=== PATIENT | male | born 1995 | race Hispanic/Latino ===

== ENCOUNTER 2017-05-11 22:24 | Inpatient (IN) | payer MEDICAID ==
[2017-05-11 22:32] VITALS: BMI 25.0
--- NOTE | 2017-05-11 23:10 | ED PDOC ---
Arrival/HPI <Kale Rosas - Last Filed: 05/12/17 03:22> - General Historian: Patient <Amee Davis - Last Filed: 05/13/17 11:25> - General Chief Complaint: Psychiatric Evaluation Time Seen by Provider: 05/11/17 22:57 - History of Present Illness Narrative History of Present Illness (Text): 05/11/17 23:10 22-year-old male presents today with depression and suicidal ideation. Patient states he has been homeless for the past 2 months after being evicted from his house. Patient states his sister and mother were able to go into women shelters but he has not been able to. Patient states over the past 2 months he's had worsening depression and is now to the point where ever he passes a bridge he contemplates jumping off of it. He denies chest pain or shortness of breath. Denies fevers or chills. Denies dizziness or weakness. No other complaints. ( Amee Dvais) Past Medical History - Provider Review Nursing Documentation Reviewed: Yes - Travel History Have you recently traveled outside [place] w/in the past 3 mons?: No - Tetanus Immunization Tetanus Immunization: Unknown - Cardiac Hx Cardiac Disorders: No - Pulmonary Hx Respiratory Disorders: No - Neurological Hx Neurological Disorder: No - HEENT Hx HEENT Disorder: No - Renal Hx Renal Disorder: No - Endocrine/Metabolic Hx Endocrine Disorders: No - Hematological/Oncological Hx Blood Disorders: No - Integumentary Hx Dermatological Disorder: No - Musculoskeletal/Rheumatological Hx Musculoskeletal Disorders: No - Gastrointestinal Hx Gastrointestinal Disorders: No - Genitourinary/Gynecological Hx Genitourinary Disorders: No - Psychiatric Hx Substance Use: No Other/Comment: ADHD <Amee Davis - Last Filed: 05/13/17 11:25> Family/Social History - Physician Review Nursing Documentation Reviewed: Yes Family/Social History: Unknown Family HX Smoking Status: Never Smoked Hx Alcohol Use: Yes Frequency of alcohol use: Socially Hx Substance Use: No <Amee Davis - Last Filed: 05/13/17 11:25> Allergies/Home Meds <Kale Rosas - Last Filed: 05/12/17 03:22> <Amee Davis - Last Filed: 05/13/17 11:25> Allergies/Adverse Reactions: Allergies No Known Allergies Allergy (Verified 05/12/17 04:52) Home Medications: Home Meds Medication Instructions Recorded Confirmed No Known Home Med 05/11/17 05/11/17 Review of Systems - Review of Systems Constitutional: absent: Fatigue, Fevers Respiratory: absent: SOB, Cough Cardiovascular: absent: Chest Pain, Palpitations, Syncope Gastrointestinal: absent: Abdominal Pain, Nausea, Vomiting Genitourinary Male: absent: Dysuria Musculoskeletal: absent: Arthralgias Skin: absent: Rash, Pruritis Psychiatric: Anxiety, Depression <Amee Davis - Last Filed: 05/13/17 11:25> Physical Exam Vital Signs Reviewed: Yes Temperature: Afebrile Blood Pressure: Normal Pulse: Regular Respiratory Rate: Normal Appearance: Positive for: Well-Appearing, Non-Toxic, Comfortable Pain Distress: None Mental Status: Positive for: Alert and Oriented X 3 - Systems Exam Head: Present: Atraumatic Mouth: Present: Moist Mucous Membranes Neck: Present: Normal Range of Motion Respiratory/Chest: Present: Clear to Auscultation, Good Air Exchange. No: Respiratory Distress, Accessory Muscle Use Cardiovascular: Present: Regular Rate and Rhythm, Normal S1, S2. No: Murmurs Upper Extremity: Present: Normal ROM Lower Extremity: Present: Normal ROM Neurological: Present: GCS=15, Speech Normal Skin: Present: Warm, Dry, Normal Color. No: Rashes Psychiatric: Present: Alert, Oriented x 3, Depressed Mood <Amee Davis - Last Filed: 05/13/17 11:25> Vital Signs Temp Pulse Resp BP Pulse Ox 05/12/17 04:00 87 18 127/75 87 L 05/12/17 01:15 98.5 F 92 H 18 118/84 99 05/11/17 23:36 99.1 F 97 H 18 130/79 97 Medical Decision Making <Kale Rosas - Last Filed: 05/12/17 03:22> <Amee Davis - Last Filed: 05/13/17 11:25> ED Course and Treatment: 05/12/17 02:07: Case endorsed to me by ALDEN Davis. Pending reassessment and discharge. 05/12/17 03:12: Patient will be admitted to Dr. Dahl's service for major depressive disorder. (Kale Rosas) 05/11/17 23:30 Patient is nontoxic well-appearing in no distress vital signs are stable. CBC WNL CMP WNL Tylenol WNL Salicylate WNL Alcohol level WNL Urine drug screen wnl UA; trace ketones cxr: wnl ekg nsr at 97b/m no st elevations, normal axis, normal intervals pt is medically cleared for PES evaluation 05/12/17 00:38 case signed out to dr. rosas; pending pes evaluation, disposition (Amee Davis) - Lab Interpretations Lab Results: 05/11/17 22:40 05/11/17 22:40 Lab Results 05/11/17 22:40: Alcohol, Quantitative < 10 05/11/17 22:40: Salicylates < 1 L, Acetaminophen < 10.0 L 02 22:40: Urine Opiates Screen Negative, Urine Methadone Screen Negative, Ur Barbiturates Screen Negative, Ur Phencyclidine Scrn Negative, Ur Amphetamines Screen Negative, U Benzodiazepines Scrn Negative, U Oth Cocaine Metabols Negative, U Cannabinoids Screen Negative 05/11/17 22:40: Sodium 143, Potassium 3.7, Chloride 102, Carbon Dioxide 25, Anion Gap 19, BUN 13, Creatinine 1.0, Est GFR ( Amer) > 60, Est GFR (Non- Af Amer) > 60, Random Glucose 91, Calcium 10.0, Total Bilirubin 0.6, AST 20, ALT 30, Alkaline Phosphatase 78, Total Protein 8.1, Albumin 4.9 H, Globulin 3.3 , Albumin/Globulin Ratio 1.5 05/11/17 22:40: Urine Color Yellow, Urine Appearance Clear, Urine pH 6.0, Ur Specific [place] 1.025, Urine Protein Negative, Urine Glucose (UA) Negative, Urine Ketones 15 H, Urine Blood Negative, Urine Nitrate Negative, Urine Bilirubin Negative, Urine Urobilinogen 2.0 H, Ur Leukocyte Esterase Negative 05/11/17 22:40: WBC 8.2, RBC 4.93, Hgb 15.1, Hct 43.8, MCV 88.8, MCH 30.6, MCHC 34.5, RDW 13.6, Plt Count 222, MPV 10.2, Gran % 54.6, Lymph % (Auto) 35.3 H, [place] % (Auto) 8.6 H, Eos % (Auto) 1.5, Baso % (Auto) 0.0, Gran # 4.49, Lymph # ( Auto) 2.9, [place] # (Auto) 0.7 H, Eos # (Auto) 0.1, Baso # (Auto) 0.00 - RAD Interpretation Radiology Orders: 05/11/17 22:58 CHEST PORTABLE [RAD] Stat - Medication Orders Current Medication Orders: Acetaminophen (Tylenol 325mg Tab) 650 mg PO Q4 PRN PRN Reason: Pain, moderate (4-7) Al Hydrox/Mg Hydrox/Simethicone (Maalox Plus 30 Ml) 30 ml PO DAILY PRN PRN Reason: Upset Stomach Bupropion HCl (Wellbutrin) 75 mg PO BID ANTHONY Last Admin: 05/13/17 11:04 Dose: 75 mg Diphenhydramine HCl (Benadryl) 50 mg PO HS PRN PRN Reason: Insomnia Last Admin: 05/12/17 21:42 Dose: 50 mg Magnesium Hydroxide (Milk Of Magnesia) 30 ml PO DAILY PRN PRN Reason: Constipation - PA / [employer] / Resident Statement / has reviewed & agrees with the documentation as recorded. / has examined the patient and agrees with the treatment plan. <Kale Rosas - Last Filed: 05/12/17 03:22> Disposition/Present on Arrival - Present on Arrival Any Indicators Present on Arrival: No History of DVT/PE: No History of Uncontrolled Diabetes: No Urinary Catheter: No History of Decub. Ulcer: No History Surgical Site Infection Following: None - Disposition Have Diagnosis and Disposition been Completed?: Yes Disposition Time: 03:21 Patient Plan: Admission <Kale Rosas - Last Filed: 05/12/17 03:22> - Present on Arrival History of DVT/PE: No History of Uncontrolled Diabetes: No Urinary Catheter: No History of Decub. Ulcer: No History Surgical Site Infection Following: None <Amee Davis - Last Filed: 05/13/17 11:25> - Disposition Diagnosis: Major depressive disorder, Suicidal ideation Disposition: HOSPITALIZED Patient Problems: Current Active Problems Problem Status Onset Major depressive disorder Acute Suicidal ideation Acute Condition: STABLE
[2017-05-11 23:14] LABS: ACETAMINOPHEN < 10.0 ug/ml (10.0-20.0); SALICYLATE < 1 mg/dL (2.0-20.0)
[2017-05-11 23:15] LABS: ALB/GLOB RATIO 1.5 (1.1-1.8); ALBUMIN 4.9 g/dL (3.0-4.8); ALT/SGPT 30 U/L (7-56); AST/SGOT 20 U/L (17-59); BLOOD UREA NITROGEN 13 mg/dL (7-21); GFR AFRICAN-AMERICAN > 60; GFR NON-AFRICAN AMERICAN > 60
[2017-05-11 23:22] LABS: EOS # 0.1 (0.0-0.7); EOS % 1.5 % (1.5-5.0); GRAN # 4.49 (1.4-6.5); GRAN % 54.6 % (50.0-68.0); HEMOGLOBIN 15.1 g/dL (14.0-18.0); LYMPH # 2.9 (1.2-3.4); LYMPH % 35.3 % (22.0-35.0); MEAN CELL VOLUME 88.8 fl (80.0-105.0); MEAN CORPUSCULAR HEMOGLOBIN 30.6 pg (25.0-35.0); MEAN CORPUSCULAR HGB CONC 34.5 g/dl (31.0-37.0); MEAN PLATELET VOLUME 10.2 fl (7.0-11.0); MONO # 0.7 (0.1-0.6); MONO % 8.6 % (1.0-6.0); RBC 4.93 10^6/uL (3.5-6.1); RED CELL DISTRIBUTION WIDTH 13.6 % (11.5-14.5); WHITE BLOOD COUNT 8.2 10^3/ul (4.5-11.0)
[2017-05-11 23:25] LABS: BARBITURATES, UR NEGATIVE (NEGATIVE); BENZODIAZEPINES, UR NEGATIVE (NEGATIVE); OPIATES, UR NEGATIVE (NEGATIVE); PHENCYCLIDINE, UR NEGATIVE (NEGATIVE)
[2017-05-11 23:26] LABS: URINE BILIRUBIN NEGATIVE (NEGATIVE); URINE BLOOD NEGATIVE (NEGATIVE); URINE GLUCOSE (UA) NEGATIVE (NEGATIVE); URINE LEUKOCYTE ESTERASE NEGATIVE Leu/uL (NEGATIVE); URINE NITRATE NEGATIVE (NEGATIVE); URINE PROTEIN NEGATIVE mg/dL (<30 mg/dL)
[2017-05-11 23:32] LABS: URINE APPEARANCE CLEAR (CLEAR); URINE COLOR YELLOW (YELLOW)
[2017-05-12 04:02] VITALS: O2SAT 87
[2017-05-12] MEDS ORDERED: Alum-Mag Hydrox-Simethicone Susp (30 mL) PO PRN (04:40)
[2017-05-12] MEDS ORDERED: Magnesium Hydroxide Susp 30 ml UD PO PRN (04:40)
--- NOTE | 2017-05-12 05:48 | PCM.BM ---
<Terrance Mullins - Last Filed: 05/12/17 05:47> Treatment Plan Problems - Problems identified on initial assessmt depression Date Initiated: 05/12/17 Time Initiated: 04:15 Assessment reference: NA Status: Active Priority: 2 suicidal ideation Date Initiated: 05/12/17 Time Initiated: 04:15 Assessment reference: NA Status: Active Priority: 1 Treatment assets and liabiliti Patient Assests: cooperative, self-reliant, ADL independent, negotiates basic needs Patient Liabilities: live alone, financial problems, poor support system - Milieu Protocol Maintain good personal hygiene: daily Encourage regular showers, daily Remind patient to perform daily oral care Conduct patient checks and document Observation sheet: Q15 minutes Maintain personal safety: every shift Educate patient to report safety concerns to staff, every shift Monitor environment for contraband/sharps Medication safety: Monitor for expected outcome, potential side effects: every shift, Assess barriers to learning: every shift, Assess readiness for medication education: every shift Discharge/Continuing Care - Education Needs Education Needs: Patient Medication, Patient Diagnosis/Disease Process, Patient Coping Skills, Patient Placement options, Patient Community resources - Discharge Discharge Criteria: Tolerates medication w/o severe side effects, Free of Suicidal thoughts, Normal sleep pattern <Diana Valladares - Last Filed: 05/12/17 11:21> Family Contact Family involvement: Family/SO is involved Family contact: Patient agrees to contact - Goals for Treatment Patient goals for treatment: "To find a place to live." <Kimberlee Dahl - Last Filed: 05/12/17 13:31> - Diagnosis (1) Major depressive disorder Status: Acute Interventions: 05/12/17 13:32 Psychoeducation Psychopharmacology/adjustment of medications as needed/ monitoring possible side effects Evaluate pt on daily basis Compliance with medications and follow up appointments Suicide and homicide risk assessment and prevention Relapse prevention Reduction of symptoms Improve functional status Family involvement As outpatient: cognitive behavioral therapy <Faith Jefferson - Last Filed: 05/12/17 15:27>
[2017-05-12 07:58] LABS: GLUCOSE,FASTING 88 mg/dL (65-110); HDL CHOLESTEROL 41 mg/dL (29-60)
[2017-05-12 08:09] LABS: LDL CHOLESTEROL 147 mg/dL (0-129)
--- NOTE | 2017-05-12 08:59 | RAD ---
HISTORY: pes eval COMPARISON: No prior. FINDINGS: LUNGS: No active pulmonary disease. PLEURA: No significant pleural effusion identified, no pneumothorax apparent. CARDIOVASCULAR: Normal. OSSEOUS STRUCTURES: No significant abnormalities. VISUALIZED UPPER ABDOMEN: Normal. OTHER FINDINGS: None. IMPRESSION: No active disease.
--- NOTE | 2017-05-12 14:13 | PCM.PSYCH ---
Initial Psychiatric Evaluation - Initial Psychiatric Evaluation Type of Admission: Voluntary Legal Status: Capacity (patient has capacity to sign consent for treatment) Chief Complaint (in patient's own words): "I was thinking to jump off the bridge for the past month or so" Patient's Reaction to Hospitalization: patient was admitted to the psychiatric inpatient unit for evaluation and stabilization of depressive symptoms, suicidal ideation with a plan to jump off the bridge. Patient required further evaluation and stabilization, observation, medication titration. History of Present Illness and Precipitating Events: shortly patient is 22 year old male, with no known previous psychiatric history, patient denied history of suicidal attempts, denied history of being admitted to the psychiatric inpatient unit, came to the hospital looking for help for his depressive symptoms, suicidal ideation with a plan to jump off the bridge, patient has poor social support, homeless, has learning disability, patient required further evaluation and stabilization, observation, medication titration. Patient was seen at the treatment team meeting today, presented to have acceptable personal hygiene, has bleached hair, uncombed, patient obviously patient has learning disabilities, was smiling inappropriately, thought process seems to be concrete, childlike demeanor, patient has good ADLs. pt said for the past year his family become homeless, pt said he was living on streets and was very stressful for him. for the past two months pt was having thoughts of harming self with the plan to jump off the bridge, pt denied any intent or plan to do so, but decided to come to the hospital looking for help. "I just want those thoughts to stop...". 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 pt denied feeling anxious, denied h/o abuse. pt denied substance abuse h/o, pt denied smoking. pt said he was officially diagnosed with learning disabilities and ADD. was attending special ED school and class. Past psych h/o: denied admissions, denied suicidal attempts. Medical h/o: denied, but now "doctor over here said I might have cholesterol level elevated..." Family h/o: strong family h/o mental illness, pt's mother and sister "have schizophrenia" 05/11/17 22:40 05/11/17 22:40 Lab Results 05/12/17 07:15: Fasting Glucose 88, Triglycerides 63, Cholesterol 201 H, LDL Cholesterol Direct 147 H, HDL Cholesterol 41 05/12/17 07:15: TSH 3rd Generation 2.49 05/11/17 22:40: Alcohol, Quantitative < 10 05/11/17 22:40: Salicylates < 1 L, Acetaminophen < 10.0 L 05/11/17 22:40: Urine Opiates Screen Negative, Urine Methadone Screen Negative, Ur Barbiturates Screen Negative, Ur Phencyclidine Scrn Negative, Ur Amphetamines Screen Negative, U Benzodiazepines Scrn Negative, U Oth Cocaine Metabols Negative, U Cannabinoids Screen Negative 05/11/17 22:40: Sodium 143, Potassium 3.7, Chloride 102, Carbon Dioxide 25, Anion Gap 19, BUN 13, Creatinine 1.0, Est GFR ( Amer) > 60, Est GFR (Non- Af Amer) > 60, Random Glucose 91, Calcium 10.0, Total Bilirubin 0.6, AST 20, ALT 30, Alkaline Phosphatase 78, Total Protein 8.1, Albumin 4.9 H, Globulin 3.3 , Albumin/Globulin Ratio 1.5 05/11/17 22:40: Urine Color Yellow, Urine Appearance Clear, Urine pH 6.0, Ur Specific [place] 1.025, Urine Protein Negative, Urine Glucose (UA) Negative, Urine Ketones 15 H, Urine Blood Negative, Urine Nitrate Negative, Urine Bilirubin Negative, Urine Urobilinogen 2.0 H, Ur Leukocyte Esterase Negative 05/11/17 22:40: WBC 8.2, RBC 4.93, Hgb 15.1, Hct 43.8, MCV 88.8, MCH 30.6, MCHC 34.5, RDW 13.6, Plt Count 222, MPV 10.2, Gran % 54.6, Lymph % (Auto) 35.3 H, [place] % (Auto) 8.6 H, Eos % (Auto) 1.5, Baso % (Auto) 0.0, Gran # 4.49, Lymph # ( Auto) 2.9, [place] # (Auto) 0.7 H, Eos # (Auto) 0.1, Baso # (Auto) 0.00 Vital Signs Temp Pulse Resp BP Pulse Ox 05/12/17 07:37 98.0 F 89 20 106/67 05/12/17 04:51 97.6 F 93 H 20 124/73 05/12/17 04:00 87 18 127/75 87 L 05/12/17 01:15 98.5 F 92 H 18 118/84 99 05/11/17 23:36 99.1 F 97 H 18 130/79 97 Current Medications: Active Medications Generic Name Dose Route Start Last Admin Trade Name Freq PRN Reason Stop Dose Admin Acetaminophen 650 mg 05/12/17 04:40 Tylenol 325mg Tab PO Q4 PRN Pain, moderate (4-7) Al Hydrox/Mg Hydrox/Simethicone 30 ml 05/12/17 04:40 Maalox Plus 30 Ml PO DAILY PRN Upset Stomach Bupropion HCl 75 mg 05/12/17 09:30 Wellbutrin PO BID ANTHONY Diphenhydramine HCl 50 mg 05/12/17 09:29 Benadryl PO HS PRN Insomnia Magnesium Hydroxide 30 ml 05/12/17 04:40 Milk Of Magnesia PO DAILY PRN Constipation Past Psychiatric History - Past Psychiatric History Previous Treatment History: None Prior Professional Help: see HPI Prior Psychiatric Treatment: see HPI At what hospital: see HPi Duration: see HPI Nature of Treatment: see HPI Explanation of prior treatment: see HPI History of Abuse: see HPI History of ETOH/Drug Use: see HPI History of Family Illness: see HPI Pertinent Medical Hx (Current Medical&Sleep Prob, Allergies): Allergies Allergy/AdvReac Type Severity Reaction Status Date / Time No Known Allergies Allergy Verified 05/12/17 04:52 No Known Home Med 05/11/17 none Review of Systems - Review of Systems Systems not reviewed;Unavailable: Acuity of Condition - EENT Eyes: As Per HPI Ears: As Per HPI Nose/Mouth/Throat: As Per HPI - Cardiovascular Cardiovascular: As Per HPI - Respiratory Respiratory: As Per HPI - Gastrointestinal Gastrointestinal: As Per HPI - Genitourinary Genitourinary: As Per HPI - Reproductive: Male Reproductive:Male: As Per HPI - Musculoskeletal Musculoskeletal: As Par HPI - Integumentary Integumentary: As Per HPI - Neurological Neurological: As Per HPI - Psychiatric Psychiatric: As Per HPI - Endocrine Endocrine: As Per HPI - Hematologic/Lymphatic Hematologic: As Per HPI Mental Status Examination - Personal Presentation Personal Presentation: Looks stated age - Affect Affect: Other (at times innnapropriate, smiling when was talking about sucicidal ideation) - Motor Activity Motor Activity: Calm - Reliability in Providing Information Reliability in Providing Information: Fair - Speech Speech: Organized - Mood Mood: Depressed ("I was not doing so well") - Formal Thought Process Formal Thought Process: No Impairment - Obsessions/Compulsions Obsessions: None Compulsions: None - Cognitive Functions Orientation: Person, Place Sensorium: Alert Attention/Concentration: Easily distracted Abstract Thinking: [place] Estimate of Intelligence: Below average Judgement: Intact, as evidence by: Insight regarding need for hospitalization - Risk Risk: Suicidal, Diminished functioning - Strength & Assets Inventory Strength & Assets Inventory: Cooperative, Other (good physical health, no h/o substances, no h/o violence) - Limitations Limitations: Other (homelessness) DSM 5 DX - DSM 5 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 self reported h/o ADD - Recommended/Plan of Treatment Treatment Recommendations and Plan of Treatment: Milieu/structure/supportive therapy Medical consult appreciated, see medical team note for more detailed info SW consultation for discharge plan and social issues Med management wellbutrin 75mg po bid for mdd and add benadryl 50mg po hs for insomnia medical evaluation Family involvement Follow up on labs Will monitor closely Pt was educated about risk/benefits and alternatives of medications, coping strategies (safety plan, suicide prevention), relapse prevention, importance of follow up with psychiatrist and therapist, stay away from drugs/alcohol/smoking Projected ELOS: 7days Prognosis: fair Discharge Plan and Discharge Criteria: Pt will be not depressed or manic, will be more hopeful, will be not psychotic or anxious, will be not having thoughts of harming self or others, will be tolerating medications well, will not have major side effects, will be able to function, will not pose threat to self or others. - Smoking Cessation Smoking Cessation Initiated: No Reason for not providing: pt denied smoking
--- NOTE | 2017-05-12 16:21 | CP.PCM.CON ---
<Connor Aelgria - Last Filed: 05/12/17 18:16> History of Present Illness - History of Present Illness History of Present Illness: Patient is a 22 year old male with past medical history significant for ADHD, depression who presents to [facility] [place] with complaints of depression and suicidal ideation with plan to jump off a bridge. Patient states he currently still feels this way but is optimistic. Denies abdominal pain, headache, shortness of breath, dizziness, cough, nausea, vomiting, diarrhea. PMD: Dr. Moura Surgical history: denies Allergies: seasonal Medications: denies current Family history: Bipolar disorder, schizophrenia Review of Systems - Constitutional Constitutional: absent: Chills, Fever - EENT Eyes: absent: Blurred Vision, Change in Vision Ears: absent: Ear Discharge, Ear Pain Nose/Mouth/Throat: absent: Nasal Congestion, Nasal Discharge - Cardiovascular Cardiovascular: absent: Chest Pain, Dyspnea - Respiratory Respiratory: absent: Cough, Dyspnea - Gastrointestinal Gastrointestinal: absent: Abdominal Pain, Diarrhea, Nausea, Vomiting - Genitourinary Genitourinary: absent: Difficulty Urinating, Dysuria - Neurological Neurological: absent: Dizziness, Numbness - Psychiatric Psychiatric: absent: Confusion, Depression - Endocrine Endocrine: absent: Change in Body Appearance, Fatigue - Hematologic/Lymphatic Hematologic: absent: Easy Bleeding, Easy Bruising Past Patient History - Tetanus Immunizations Tetanus Immunization: Unknown - Past Social History Smoking Status: Never Smoked - CARDIAC Hx Cardiac Disorders: No Hx Hypertension: No - PULMONARY Hx Tuberculosis: No - NEUROLOGICAL HX Cerebrovascular Accident: No Hx Seizures: No - HEENT Hx HEENT Problems: No - RENAL Hx Chronic Kidney Disease: No - ENDOCRINE/METABOLIC Hx Endocrine Disorders: No - HEMATOLOGICAL/ONCOLOGICAL Hx Cancer: No Hx Human Immunodeficiency Virus (HIV): No - INTEGUMENTARY Hx Dermatological Problems: No - MUSCULOSKELETAL/RHEUMATOLOGICAL Hx Musculoskeletal Disorders: No - GASTROINTESTINAL Hx Gastrointestinal Disorders: No - GENITOURINARY/GYNECOLOGICAL Hx Sexually Transmitted Disorders: No - PSYCHIATRIC Hx Substance Use: No - SURGICAL HISTORY Hx Surgeries: No Meds Allergies/Adverse Reactions: Allergies Allergy/AdvReac Type Severity Reaction Status Date / Time No Known Allergies Allergy Verified 05/12/17 04:52 - Medications Medications: Current Medications Acetaminophen (Tylenol 325mg Tab) 650 mg PO Q4 PRN PRN Reason: Pain, moderate (4-7) Al Hydrox/Mg Hydrox/Simethicone (Maalox Plus 30 Ml) 30 ml PO DAILY PRN PRN Reason: Upset Stomach Bupropion HCl (Wellbutrin) 75 mg PO BID ANTHONY Last Admin: 05/12/17 14:39 Dose: 75 mg Diphenhydramine HCl (Benadryl) 50 mg PO HS PRN PRN Reason: Insomnia Magnesium Hydroxide (Milk Of Magnesia) 30 ml PO DAILY PRN PRN Reason: Constipation Physical Exam - Head Exam Head Exam: ATRAUMATIC, NORMAL INSPECTION, NORMOCEPHALIC - Eye Exam Eye Exam: EOMI, Normal appearance - ENT Exam ENT Exam: Mucous Membranes Moist, Normal Exam - Neck Exam Neck exam: Positive for: Normal Inspection - Respiratory Exam Respiratory Exam: Clear to Auscultation Bilateral, NORMAL BREATHING PATTERN. absent: Rhonchi, Wheezes - Cardiovascular Exam Cardiovascular Exam: REGULAR RHYTHM, +S1, +S2 - GI/Abdominal Exam GI & Abdominal Exam: Normal Bowel Sounds, Soft - Rectal Exam Rectal Exam: NORMAL INSPECTION - Neurological Exam Neurological exam: Alert, CN II-XII Intact, Oriented x3 - Psychiatric Exam Psychiatric exam: Normal Affect, Normal Mood - Skin Skin Exam: Intact, Normal Color, Warm Results - Vital Signs Recent Vital Signs: Last Vital Signs Temp 98.0 F 05/12/17 07:37 Pulse 89 05/12/17 07:37 Resp 20 05/12/17 07:37 BP 106/67 05/12/17 07:37 Pulse Ox 87 L 05/12/17 04:00 - Labs Result Diagrams: 05/11/17 22:40 05/11/17 22:40 Labs: Laboratory Results - last 24 hr 05/12/17 05/12/17 07:15 07:15 Fasting Glucose 88 Triglycerides 63 Cholesterol 201 H LDL Cholesterol Direct 147 H HDL Cholesterol 41 TSH 3rd Generation 2.49 Assessment & Plan - Assessment and Plan (Free Text) Assessment: 22 year old male admitted for depression with suicidal ideation Plan: Medical clearance - patient is cleared from a medical standpoint. - lab abnormalities include high cholesterol. Patient was counseled on diet and following up with his PMD after 6 months to decide whether high cholesterol may be controlled with diet or if medication is necessary. - patient was advised to follow up with his PMD regarding admission after discharge within 1 week. <Angel Ryder - Last Filed: 05/12/17 18:40> Meds - Medications Medications: Current Medications Acetaminophen (Tylenol 325mg Tab) 650 mg PO Q4 PRN PRN Reason: Pain, moderate (4-7) Al Hydrox/Mg Hydrox/Simethicone (Maalox Plus 30 Ml) 30 ml PO DAILY PRN PRN Reason: Upset Stomach Bupropion HCl (Wellbutrin) 75 mg PO BID ANTHONY Last Admin: 05/12/17 17:25 Dose: 75 mg Diphenhydramine HCl (Benadryl) 50 mg PO HS PRN PRN Reason: Insomnia Magnesium Hydroxide (Milk Of Magnesia) 30 ml PO DAILY PRN PRN Reason: Constipation Results - Vital Signs Recent Vital Signs: Last Vital Signs Temp 98.0 F 05/12/17 07:37 Pulse 100 H 05/12/17 15:00 Resp 20 05/12/17 07:37 BP 134/71 05/12/17 15:00 Pulse Ox 87 L 05/12/17 04:00 - Labs Result Diagrams: 05/11/17 22:40 05/11/17 22:40 Labs: Laboratory Results - last 24 hr 05/12/17 05/12/17 05/12/17 07:15 07:15 07:15 Fasting Glucose 88 Triglycerides 63 Cholesterol 201 H LDL Cholesterol Direct 147 H HDL Cholesterol 41 TSH 3rd Generation 2.49 RPR Nonreactive Attending/Attestation - Attestation I have personally seen and examined this patient.: Yes I have fully participated in the care of the patient.: Yes I have reviewed all pertinent clinical information: Yes Notes (Text): 05/12/17 18:39 Attending note; Patient seen and examined with resident in psychiatric floor. Patient is alert, awake and oriented. Denies any complaints. Labs reviewed. Hypercholesterolemia; dietary control for 3-6 months. Needs repeat cholesterol level as outpatient. Continue psychiatric treatment. Patient is medically stable. Please reconsult as needed. Thank you for the courtesy of this consultation. 05/12/17 18:40
--- NOTE | 2017-05-12 22:38 | CARD ---
APPROVED REPORT EKG Measurement Heart [id number] <Conclusion> Normal sinus rhythm Normal ECG
--- NOTE | 2017-05-13 09:33 | PCM.PYCHPN ---
Psychiatric Progress Note - Psychiatric Progress Note Patient seen today, length of contact: 25 MIN Patient Chief Complaint: "great" Problems Identified/Issues Discussed: I reviewed assessment and recent notes. Patient was interviewed at bedside. He is cooperative with questioning and oriented x3. Grooming is fair. Patient reports that he is great. Affect is appropriately reactive. He denies hallucinations or any new concerns. He slept well last night. Staff notes indicate patient has been visible, social and attending groups. He is compliant with medications. There were no behavioral issues overnight. 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 self reported h/o ADD Mental Status Examination - Cognitive Function Orientation: Person, Place Attention: WNL - Mood Mood: Depressed ("great") - Affect Affect: Other ( labile, odd) - Speech Speech: Appropriate - Formal Thought Process Formal Thought Process: No Impairment - Suicidal Ideation Suicidal Ideation: No - Homicidal Ideation Homicidal Ideation: No Goal/Treatment Plan - Goal/Treatment Plan Progress Toward Problem(s) and Goals/Treatment Plan: c/w current tx and plan No new weekend labs thus far Vitals reviewed and noted below: Selected Entries 05/13/17 08:24 Temperature 97.5 F L Pulse Rate 74 Respiratory 18 Rate Blood Pressure 130/77
--- NOTE | 2017-05-14 09:24 | PCM.PYCHPN ---
Psychiatric Progress Note - Psychiatric Progress Note Patient seen today, length of contact: 25 MIN Patient Chief Complaint: "all right, can't complain" Problems Identified/Issues Discussed: I reviewed recent notes and patient was interviewed at bedside. He is cooperative with questioning and oriented x3. Grooming is fair. Patient reports that he is "all right, can't complain". Affect is appropriately reactive. He denies hallucinations or any new concerns. He slept well again last night. Staff notes indicate patient has been visible, social and attending groups. He is compliant with medications. There were no behavioral issues over the weekend. 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 self reported h/o ADD Mental Status Examination - Cognitive Function Orientation: Person, Place Attention: WNL Concentration: WNL - Mood Mood: Depressed ( "all right, can't complain") - Affect Affect: Other ( labile, less odd) - Speech Speech: Appropriate - Formal Thought Process Formal Thought Process: No Impairment - Suicidal Ideation Suicidal Ideation: No - Homicidal Ideation Homicidal Ideation: No Goal/Treatment Plan - Goal/Treatment Plan Progress Toward Problem(s) and Goals/Treatment Plan: c/w current tx and plan No new weekend labs Vitals reviewed and noted below: 05/14/17 07:42 Temperature 97.1 F L Pulse Rate 73 Respiratory 20 Rate Blood Pressure 120/79
--- NOTE | 2017-05-15 17:23 | PCM.PYCHPN ---
Psychiatric Progress Note - Psychiatric Progress Note Patient seen today, length of contact: 30min Patient Chief Complaint: "I am doing little better" Problems Identified/Issues Discussed: Suicide/ homicide prevention, past psychiatric h/o, current psychiatric symptoms , medical problems, risk/benefits and alternatives of medications, medications compliance, coping strategies, substance abuse h/o, relapse prevention, importance of follow up with psychiatrist and therapist, discharge plan. Medical Problems: elevated cholesterol level Diagnostic Results: 05/11/17 22:40 05/11/17 22:40 Lab Results 05/12/17 07:15: Fasting Glucose 88, Triglycerides 63, Cholesterol 201 H, LDL Cholesterol Direct 147 H, HDL Cholesterol 41 05/12/17 07:15: RPR Nonreactive 05/12/17 07:15: TSH 3rd Generation 2.49 05/11/17 22:40: Alcohol, Quantitative < 10 05/11/17 22:40: Salicylates < 1 L, Acetaminophen < 10.0 L 05/11/17 22:40: Urine Opiates Screen Negative, Urine Methadone Screen Negative, Ur Barbiturates Screen Negative, Ur Phencyclidine Scrn Negative, Ur Amphetamines Screen Negative, U Benzodiazepines Scrn Negative, U Oth Cocaine Metabols Negative, U Cannabinoids Screen Negative 05/11/17 22:40: Sodium 143, Potassium 3.7, Chloride 102, Carbon Dioxide 25, Anion Gap 19, BUN 13, Creatinine 1.0, Est GFR ( Amer) > 60, Est GFR (Non- Af Amer) > 60, Random Glucose 91, Calcium 10.0, Total Bilirubin 0.6, AST 20, ALT 30, Alkaline Phosphatase 78, Total Protein 8.1, Albumin 4.9 H, Globulin 3.3 , Albumin/Globulin Ratio 1.5 05/11/17 22:40: Urine Color Yellow, Urine Appearance Clear, Urine pH 6.0, Ur Specific [place] 1.025, Urine Protein Negative, Urine Glucose (UA) Negative, Urine Ketones 15 H, Urine Blood Negative, Urine Nitrate Negative, Urine Bilirubin Negative, Urine Urobilinogen 2.0 H, Ur Leukocyte Esterase Negative 05/11/17 22:40: WBC 8.2, RBC 4.93, Hgb 15.1, Hct 43.8, MCV 88.8, MCH 30.6, MCHC 34.5, RDW 13.6, Plt Count 222, MPV 10.2, Gran % 54.6, Lymph % (Auto) 35.3 H, Mineral % (Auto) 8.6 H, Eos % (Auto) 1.5, Baso % (Auto) 0.0, Gran # 4.49, Lymph # ( Auto) 2.9, Mineral # (Auto) 0.7 H, Eos # (Auto) 0.1, Baso # (Auto) 0.00 Vital Signs Temp Pulse Resp BP Pulse Ox 05/15/17 16:00 86 118/87 05/15/17 07:26 97.7 F 72 20 119/76 05/15/17 07:24 97.7 F 72 20 05/14/17 21:59 73 118/78 05/14/17 07:42 97.1 F L 73 20 120/79 05/13/17 15:00 67 106/63 05/13/17 08:24 97.5 F L 74 18 130/77 05/12/17 15:00 100 H 134/71 05/12/17 07:37 98.0 F 89 20 106/67 05/12/17 04:51 97.6 F 93 H 20 124/73 05/12/17 04:00 87 18 127/75 87 L 05/12/17 01:15 98.5 F 92 H 18 118/84 99 05/11/17 23:36 99.1 F 97 H 18 130/79 97 DSM 5 Symptoms Update: shortly patient is 22 year old male, with no known previous psychiatric history, patient denied history of suicidal attempts, denied history of being admitted to the psychiatric inpatient unit, came to the hospital looking for help for his depressive symptoms, suicidal ideation with a plan to jump off the bridge, patient has poor social support, homeless, has learning disability, patient required further evaluation and stabilization, observation, medication titration. Patient was seen at the treatment team meeting room today, better groomed. pt said he feels better because he feels meds started to work. pt reported to have a good appetite and sleep. pt was interviewed by for boarding home placement, but pt said "it is too far". pt has another interview tomorrow. as per staff pt has strong borderline personality traits. pt tolerated meds well, no side effects observed or reported, AIMS 0, no EPS. 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 self reported h/o ADD Medication Change: No Medical Record Reviewed: Yes Consults ordered or reviewed: medical consult appreciated Mental Status Examination - Cognitive Function Orientation: Person, Place Attention: WNL Concentration: WNL Association: Loose Fund of Knowledge: Poor (baseline) - Mood Mood: Depressed ( "all right, can't complain") - Affect Affect: Other ( labile, less odd) - Speech Speech: Appropriate - Formal Thought Process Formal Thought Process: No Impairment - Suicidal Ideation Suicidal Ideation: No - Homicidal Ideation Homicidal Ideation: No Goal/Treatment Plan - Goal/Treatment Plan Need for Continued Stay: Remain at risks for inpatient hospitalization, Severe depression anxiety, Discharge may exacerbated symptoms, Severe functional impairment Progress Toward Problem(s) and Goals/Treatment Plan: Milieu/structure/supportive therapy Medical consult appreciated, see medical team note for more detailed info SW consultation for discharge plan and social issues Med management wellbutrin 75mg po bid for mdd and add sonata 5mg po hs for insomnia pt submitted 48hr notice, requesting d/c medical evaluation Family involvement Follow up on labs Will monitor closely Pt was educated about risk/benefits and alternatives of medications, coping strategies (safety plan, suicide prevention), relapse prevention, importance of follow up with psychiatrist and therapist, stay away from drugs/alcohol/smoking Estimated Date of D/C: 05/16/17
[2017-05-16 06:41] VITALS: BP 150/80; PULSE 87; RESP 16; TEMP 98.4
--- NOTE | 2017-05-16 16:27 | PCM.PYCHDC ---
Mental Status Examination - Mental Status Examination Orientation: Person, Place, Situation, Time Memory: Impaired (baseline) Mood: Neutral Affect: Broad (and mood congruent) Speech: Appropriate (there some poverty of speech) Attention: Poor (some improvement, poor at baseline, learning disabilities) Concentration: Poor (some improvement, poor at baseline, learning disabilities) Association: WNL Fund of Knowledge: Poor (poor at baseline, learning disabilities) Formal Thought Process: No Impairment Description of patient's judgement and insight: Pt has improved insight into mental and medical illness, pt was compliant with medications and unit rules and regulations, pt was going to groups, was calm, cooperative, socially appropriate, no behavioral incidents, no agitation, no aggression. Psychotic Thoughts and Behaviors: Pt denied v/a/t hallucinations, denied paranoid ideations, pt does not appear to be psychotic, and thought process is goal directed. Suicidal Ideation: No Current Homicidal Ideation?: No Plan: pt adamantly denied thoughts of harming self or others denied intent or plan. Discharge Summary - Discharge Note Reason for Hospitalization: patient was admitted to the psychiatric inpatient unit for evaluation and stabilization of depressive symptoms, suicidal ideation with a plan to jump off the bridge, no intent. Patient required further evaluation and stabilization, observation, medication titration. Psychiatric History (includes Medical, Family, Personal Hx): see HPI Laboratory Data: 05/11/17 22:40 05/11/17 22:40 Lab Results 05/12/17 07:15: Fasting Glucose 88, Triglycerides 63, Cholesterol 201 H, LDL Cholesterol Direct 147 H, HDL Cholesterol 41 05/12/17 07:15: RPR Nonreactive 05/12/17 07:15: TSH 3rd Generation 2.49 05/11/17 22:40: Alcohol, Quantitative < 10 05/11/17 22:40: Salicylates < 1 L, Acetaminophen < 10.0 L 05/11/17 22:40: Urine Opiates Screen Negative, Urine Methadone Screen Negative, Ur Barbiturates Screen Negative, Ur Phencyclidine Scrn Negative, Ur Amphetamines Screen Negative, U Benzodiazepines Scrn Negative, U Oth Cocaine Metabols Negative, U Cannabinoids Screen Negative 05/11/17 22:40: Sodium 143, Potassium 3.7, Chloride 102, Carbon Dioxide 25, Anion Gap 19, BUN 13, Creatinine 1.0, Est GFR ( Amer) > 60, Est GFR (Non- Af Amer) > 60, Random Glucose 91, Calcium 10.0, Total Bilirubin 0.6, AST 20, ALT 30, Alkaline Phosphatase 78, Total Protein 8.1, Albumin 4.9 H, Globulin 3.3 , Albumin/Globulin Ratio 1.5 05/11/17 22:40: Urine Color Yellow, Urine Appearance Clear, Urine pH 6.0, Ur Specific [place] 1.025, Urine Protein Negative, Urine Glucose (UA) Negative, Urine Ketones 15 H, Urine Blood Negative, Urine Nitrate Negative, Urine Bilirubin Negative, Urine Urobilinogen 2.0 H, Ur Leukocyte Esterase Negative 05/11/17 22:40: WBC 8.2, RBC 4.93, Hgb 15.1, Hct 43.8, MCV 88.8, MCH 30.6, MCHC 34.5, RDW 13.6, Plt Count 222, MPV 10.2, Gran % 54.6, Lymph % (Auto) 35.3 H, [place] % (Auto) 8.6 H, Eos % (Auto) 1.5, Baso % (Auto) 0.0, Gran # 4.49, Lymph # ( Auto) 2.9, [place] # (Auto) 0.7 H, Eos # (Auto) 0.1, Baso # (Auto) 0.00 Vital Signs Temp Pulse Resp BP Pulse Ox 05/16/17 06:40 98.4 F 87 16 150/80 05/15/17 16:00 86 118/87 05/15/17 07:26 97.7 F 72 20 119/76 05/15/17 07:24 97.7 F 72 20 05/14/17 21:59 73 118/78 05/14/17 07:42 97.1 F L 73 20 120/79 05/13/17 15:00 67 106/63 05/13/17 08:24 97.5 F L 74 18 130/77 05/12/17 15:00 100 H 134/71 05/12/17 07:37 98.0 F 89 20 106/67 05/12/17 04:51 97.6 F 93 H 20 124/73 05/12/17 04:00 87 18 127/75 87 L 05/12/17 01:15 98.5 F 92 H 18 118/84 99 05/11/17 23:36 99.1 F 97 H 18 130/79 97 Consultations:: List each consultation separately and include: 1. Reason for request. 2. Findings. 3. Follow-up Consultations: medical consult appreciated see notes for more detailed information Summary of Hospital Course include:: 1. Description of specific treatment plan utilized for patients during their course of treatmen. 2. Summarize the time- course for resolution of acute symptoms and/or regressed behaviors. 3. Describe issues identified and worked on during hospitalization. 4. Describe medication utilized. 5. Describe medical problems identified and treated. 6. Reassessment of suicide risk Summary of Hospital Course: shortly patient is 22 year old male, with no known previous psychiatric history, patient denied history of suicidal attempts, denied history of being admitted to the psychiatric inpatient unit, came to the hospital looking for help for his depressive symptoms, suicidal ideation with a plan to jump off the bridge, patient has poor social support, homeless, has learning disability, patient required further evaluation and stabilization, observation, medication titration. at the time of admission presented to have acceptable personal hygiene, has bleached hair, uncombed, patient obviously patient has learning disabilities, was smiling inappropriately, thought process seems to be concrete, childlike demeanor, patient has good ADLs. pt said for the past year his family become homeless, pt said he was living on streets and was very stressful for him. for the past two months pt was having thoughts of harming self with the plan to jump off the bridge, pt denied any intent or plan to do so, but decided to come to the hospital looking for help. "I just want those thoughts to stop...". pt denied feeling of hopelessness or helplessness, but this chart writer is doubtful about pt understanding the meaning of these words. pt denied feeling anxious, denied h/o abuse. pt denied substance abuse h/o, pt denied smoking. pt said he was officially diagnosed with learning disabilities and ADD. was attending special ED school and class. Past psych h/o: denied admissions, denied suicidal attempts. Medical h/o: denied, but now "doctor over here said I might have cholesterol level elevated..." Family h/o: strong family h/o mental illness, pt's mother and sister "have schizophrenia" 05/11/17 22:40 05/11/17 22:40 Lab Results 05/12/17 07:15: Fasting Glucose 88, Triglycerides 63, Cholesterol 201 H, LDL Cholesterol Direct 147 H, HDL Cholesterol 41 05/12/17 07:15: TSH 3rd Generation 2.49 05/11/17 22:40: Alcohol, Quantitative < 10 05/11/17 22:40: Salicylates < 1 L, Acetaminophen < 10.0 L 05/11/17 22:40: Urine Opiates Screen Negative, Urine Methadone Screen Negative, Ur Barbiturates Screen Negative, Ur Phencyclidine Scrn Negative, Ur Amphetamines Screen Negative, U Benzodiazepines Scrn Negative, U Oth Cocaine Metabols Negative, U Cannabinoids Screen Negative 05/11/17 22:40: Sodium 143, Potassium 3.7, Chloride 102, Carbon Dioxide 25, Anion Gap 19, BUN 13, Creatinine 1.0, Est GFR ( Amer) > 60, Est GFR (Non- Af Amer) > 60, Random Glucose 91, Calcium 10.0, Total Bilirubin 0.6, AST 20, ALT 30, Alkaline Phosphatase 78, Total Protein 8.1, Albumin 4.9 H, Globulin 3.3 , Albumin/Globulin Ratio 1.5 05/11/17 22:40: Urine Color Yellow, Urine Appearance Clear, Urine pH 6.0, Ur Specific [place] 1.025, Urine Protein Negative, Urine Glucose (UA) Negative, Urine Ketones 15 H, Urine Blood Negative, Urine Nitrate Negative, Urine Bilirubin Negative, Urine Urobilinogen 2.0 H, Ur Leukocyte Esterase Negative 05/11/17 22:40: WBC 8.2, RBC 4.93, Hgb 15.1, Hct 43.8, MCV 88.8, MCH 30.6, MCHC 34.5, RDW 13.6, Plt Count 222, MPV 10.2, Gran % 54.6, Lymph % (Auto) 35.3 H, [place] % (Auto) 8.6 H, Eos % (Auto) 1.5, Baso % (Auto) 0.0, Gran # 4.49, Lymph # ( Auto) 2.9, [place] # (Auto) 0.7 H, Eos # (Auto) 0.1, Baso # (Auto) 0.00 Vital Signs Temp Pulse Resp BP Pulse Ox 05/12/17 07:37 98.0 F 89 20 106/67 05/12/17 04:51 97.6 F 93 H 20 124/73 05/12/17 04:00 87 18 127/75 87 L 05/12/17 01:15 98.5 F 92 H 18 118/84 99 05/11/17 23:36 99.1 F 97 H 18 130/79 97 over the course of this hospitalization pt was stabilized on the following medications: wellbutrin 75mg po bid for mdd and add sonata 5mg po hs for insomnia, but pt was able to sleep with no sonata benadryl prn for insomnia pt tolerated meds well, no side effects observed or reported, AIMS 0, no EPS. pt submitted 48hr notice, requesting d/c, pt does not meet a criteria for screening. pt is not danger to self or others. will be d/c today because pt did not want to have an interview with boarding home, pt said his friend will accept him. Over the course of this hospitalization pt was attending groups, pt also had medication management, had therapeutic milieu. Overall pt improved significantly, pt's affect became brighter, pt was less depressed, has realistic future oriented plans, pt also does not appear to be psychotic, or anxious, pt was socially appropriate, no behavioral issues, pts insight improved as well and soon pt deemed to be ready for discharge. At the time of the discharge pt denied been depressed, denied thoughts of harming self or others, denied psychotic symptoms, and pt does not appeared to be psychotic, denied been anxious, pt is not in imminent danger to self or others, will be following up at IOP program, information about follow up appointment, time and address provided to the pt, it is patient responsibility to follow up with outpatient clinic, PMD as well as specialists (see SW note for more detailed information). In case pt will need to obtain results of studies pending at discharge pt was provided with contact information of Psychiatric Inpatient unit [phone] as well as Medical Record Department [phone]. pt is not using drugs, not smoking pt was provided with prescriptions for all of medications (please see medication reconciliation form) Pt was educated about safety plan in case of worsening of symptoms or in case of suicidal or homicidal ideation call 911 or go to the nearest ER, also was educated to take meds as prescribed and stay away from drugs, pt verbalized understanding. - Diagnosis (1) Major depressive disorder Status: Acute Priority: Medium - Final Diagnosis (DSM 5) Condition upon Discharge: STABLE Disposition: HOME/ ROUTINE Follow-up Treatment Plan: At the time of the discharge pt denied been depressed, denied thoughts of harming self or others, denied psychotic symptoms, and pt does not appeared to be psychotic, denied been anxious, pt is not in imminent danger to self or others, will be following up at [facility] program, information about follow up appointment, time and address provided to the pt, it is patient responsibility to follow up with outpatient clinic, PMD as well as specialists (see SW note for more detailed information). In case pt will need to obtain results of studies pending at discharge pt was provided with contact information of Psychiatric Inpatient unit [phone] as well as Medical Record Department [phone]. pt is not using drugs, not smoking pt was provided with prescriptions for all of medications (please see medication reconciliation form) Pt was educated about safety plan in case of worsening of symptoms or in case of suicidal or homicidal ideation call 911 or go to the nearest ER, also was educated to take meds as prescribed and stay away from drugs, pt verbalized understanding. Prescriptions/Medication Reconciliation: buPROPion XL [Wellbutrin] 150 mg PO DAILY #14 t24 DiphenhydrAMINE [Benadryl] 50 mg PO HS PRN #14 cap PRN Reason: Insomnia - Smoking Cessation Smoking Cessation Medication prescribed: No Reason for not providing: pt does not smoke - Antipsychotic Medications Pt discharged on 2 or more routine antipsychotic medications: No
== END 2017-05-16 14:47 | disposition home or self-care (01) | DRG 426 ==
LOC: ED 22:24 → ERH 05-12 03:18 → PSYC 05-12 04:12
PROVIDERS: ADMIT Psychiatry & Neurology Psychiatry; ATTEND Psychiatry & Neurology Psychiatry
DX: F32.9 Major depressive disorder, single episode, unspecified (principal); R45.851 Suicidal ideations; E78.00 Pure hypercholesterolemia, unspecified; Z59.0 Homelessness

== ENCOUNTER 2017-06-18 21:17 | Emergency (ER) | payer MEDICAID ==
--- NOTE | 2017-06-18 21:21 | ED PDOC ---
Arrival/HPI - General Time Seen by Provider: 06/18/17 21:20 Historian: Patient - History of Present Illness Narrative History of Present Illness (Text): 06/18/17 21:21 22 y/o male, no significant pmh, psychiatric history including depression, biba c/o Past Medical History - Tetanus Immunization Tetanus Immunization: Unknown - Cardiac Hx Cardiac Disorders: No - Pulmonary Hx Respiratory Disorders: No - Neurological Hx Neurological Disorder: No - HEENT Hx HEENT Disorder: No - Renal Hx Renal Disorder: No - Endocrine/Metabolic Hx Endocrine Disorders: No - Hematological/Oncological Hx Blood Disorders: No - Integumentary Hx Dermatological Disorder: No - Musculoskeletal/Rheumatological Hx Musculoskeletal Disorders: No - Gastrointestinal Hx Gastrointestinal Disorders: No - Genitourinary/Gynecological Hx Genitourinary Disorders: No - Psychiatric Hx Substance Use: No Other/Comment: ADHD Family/Social History Smoking Status: Never Smoked Hx Alcohol Use: Yes Hx Substance Use: No Allergies/Home Meds Allergies/Adverse Reactions: Allergies No Known Allergies Allergy (Verified 05/12/17 04:52) Disposition/Present on Arrival - Present on Arrival History of DVT/PE: No History of Uncontrolled Diabetes: No Urinary Catheter: No History Surgical Site Infection Following: None - Disposition
[2017-06-18] MEDS ORDERED: Sodium Chloride 0.9% 1,000 ML IV STA (21:32)
[2017-06-18 21:38] VITALS: BMI 24.3
--- NOTE | 2017-06-18 21:38 | ED PDOC ---
"Arrival/HPI - General Time Seen by Provider: 06/18/17 21:20 Historian: Patient - History of Present Illness Narrative History of Present Illness (Text): 06/18/17 21:36 22 year old male, with no significant past medical history but psychiatric history of depression, presents to the Emergency department via EMS complaining of left sided abdominal discomfort for past 24 hours. Patient informs associated symptoms of nausea but denies any vomiting. Patient any fever, chills , diarrhea, chest pain, shortness of breath, flank pain, urinary symptoms or any other complaints. Time/Duration: 24 hours Symptom Onset: Gradual Symptom Course: Unchanged Quality: Aching Activities at Onset: Light Context: Home Past Medical History - Provider Review Nursing Documentation Reviewed: Yes - Tetanus Immunization Tetanus Immunization: Unknown - Cardiac Hx Cardiac Disorders: No - Pulmonary Hx Respiratory Disorders: No - Neurological Hx Neurological Disorder: No - HEENT Hx HEENT Disorder: No - Renal Hx Renal Disorder: No - Endocrine/Metabolic Hx Endocrine Disorders: No - Hematological/Oncological Hx Blood Disorders: No - Integumentary Hx Dermatological Disorder: No - Musculoskeletal/Rheumatological Hx Musculoskeletal Disorders: No - Gastrointestinal Hx Gastrointestinal Disorders: No - Genitourinary/Gynecological Hx Genitourinary Disorders: No - Psychiatric Hx Substance Use: No Other/Comment: ADHD Family/Social History - Physician Review Nursing Documentation Reviewed: Yes Family/Social History: No Known Family HX Smoking Status: Never Smoked Hx Alcohol Use: Yes Hx Substance Use: No Allergies/Home Meds Allergies/Adverse Reactions: Allergies No Known Allergies Allergy (Verified 06/18/17 21:29) Review of Systems - Physician Review All systems were reviewed & negative as marked: Yes - Review of Systems Constitutional: Normal. absent: Fevers Eyes: Normal ENT: Normal Respiratory: Normal. absent: SOB Cardiovascular: Normal. absent: Chest Pain Gastrointestinal: Abdominal Pain, Nausea. absent: Diarrhea, Vomiting Genitourinary Male: Normal. absent: Urinary Output Changes Musculoskeletal: Normal Skin: Normal Neurological: Normal Endocrine: Normal Hemo/Lymphatic: Normal Psychiatric: Normal Physical Exam Vital Signs Reviewed: Yes Vital Signs Temp Pulse Resp BP Pulse Ox 06/19/17 00:28 98.0 F 84 17 131/90 98 06/18/17 21:34 99.0 F 102 H 17 178/92 H 95 Temperature: Afebrile Blood Pressure: Hypertensive Pulse: Tachycardic Respiratory Rate: Normal Appearance: Positive for: Well-Appearing, Non-Toxic, Comfortable Pain Distress: None Mental Status: Positive for: Alert and Oriented X 3 - Systems Exam Head: Present: Atraumatic, Normocephalic Pupils: Present: PERRL Extroacular Muscles: Present: EOMI Conjunctiva: Present: Normal Mouth: Present: Moist Mucous Membranes Neck: Present: Normal Range of Motion Respiratory/Chest: Present: Clear to Auscultation, Good Air Exchange. No: Respiratory Distress, Accessory Muscle Use Cardiovascular: Present: Regular Rate and Rhythm, Normal S1, S2. No: Murmurs Abdomen: Present: Tenderness (mild lt. sided abdominal tenderness), Normal Bowel Sounds. No: Distention, Peritoneal Signs, Rebound, Guarding Back: Present: Normal Inspection Upper Extremity: Present: Normal Inspection. No: Cyanosis, Edema Lower Extremity: Present: Normal Inspection. No: Edema Neurological: Present: GCS=15, CN II-XII Intact, Speech Normal Skin: Present: Warm, Dry, Normal Color. No: Rashes Psychiatric: Present: Alert, Oriented x 3, Normal Insight, Normal Concentration Medical Decision Making ED Course and Treatment: 06/18/17 21:40 Impression: 22 year old male presents to the Emergency department for left sided abdominal discomfort. Plan: -- Labs -- CT of abdomen/pelvis -- Pepcid -- IV Fluid -- Urinalysis -- Reassess and disposition 06/19/17 00:51 -CT Abdomen and pelvis show No acute findings. -Labs are non-significant except potassium 3.4 (potassium chloride 20meq po ordered) -UA show no UTI -Pt. eating and drinking well, walking around, no focal neurological deficits. -Discharge home with pepcid, motrin, bed rest, follow up with your own pmd and GI within 2 days, return to the ER for any new or worsening signs or symptoms. - Lab Interpretations Lab Results: 06/18/17 21:42 06/18/17 21:42 Lab Results 06/19/17 00:03: Urine Color Yellow, Urine Appearance Sl cloudy, Urine pH 6.0, Ur Specific [place] >= 1.030, Urine Protein Negative, Urine Glucose (UA) Negative, Urine Ketones Trace H, Urine Blood Negative, Urine Nitrate Negative, Urine Bilirubin Small H, Urine Urobilinogen 4.0 H, Ur Leukocyte Esterase Negative 06/18/17 21:42: WBC 8.0, RBC 4.72, Hgb 14.3, Hct 41.6 L, MCV 88.1, MCH 30.3, MCHC 34.4, RDW 13.7, Plt Count 219, MPV 10.0, Gran % 59.1, Lymph % (Auto) 26.9, [place] % (Auto) 11.8 H, Eos % (Auto) 2.1, Baso % (Auto) 0.1, Gran # 4.69, Lymph # (Auto) 2.1, [place] # (Auto) 0.9 H, Eos # (Auto) 0.2, Baso # (Auto) 0.01 06/18/17 21:42: Sodium 141, Potassium 3.4 L, Chloride 105, Carbon Dioxide 26, Anion Gap 14, BUN 16, Creatinine 0.8, Est GFR ( Amer) > 60, Est GFR (Non- Af Amer) > 60, Random Glucose 114 H, Calcium 10.5, Magnesium 1.9, Total Bilirubin 0.4, AST 30, ALT 38, Alkaline Phosphatase 72, Total Protein 7.7, Albumin 4.5, Globulin 3.2, Albumin/Globulin Ratio 1.4, Lipase 79 I have reviewed the lab results: Yes - RAD Interpretation Radiology Orders: 06/18/17 21:32 ABD & PELVIS IV CONTRAST ONLY [CT] Stat Lung bases: No acute findings. No mass. No consolidation. ABDOMEN: Liver: No acute findings. No mass. Gallbladder and bile ducts: No acute findings. No calcified stones. No ductal dilation. Pancreas: No acute findings. No mass. No ductal dilation. Spleen: No acute findings. No splenomegaly. Adrenals: No acute findings. No mass. Kidneys and ureters: No acute findings. No solid mass. No hydronephrosis. Stomach and bowel: No acute findings. No obstruction. No mucosal thickening. Appendix: No findings to suggest acute appendicitis. GABRIELE BALBUENA | Preliminary Radiology Report CYBER OPERATOR (QA) DISCREPANCY? If there is a discrepancy between the preliminary and final interpretation, please notify [facility] via [email or web address]. If you do not have access to our QA portal, call our QA team at [phone] CONFIDENTIALITY STATEMENT This report is intended only for the use of the referring physician, and only in accordance with law, If you received this in error, call [phone] Page 2 of 2 PELVIS: Bladder: No acute findings. No mass. Reproductive: No acute findings. ABDOMEN and PELVIS: Intraperitoneal space: No acute findings. No free air. No significant fluid collection. Bones/joints: No acute fracture. No dislocation. Soft tissues: No acute findings. Vasculature: No acute findings. No abdominal aortic aneurysm. Lymph nodes: No acute findings. No enlarged lymph nodes. IMPRESSION: No acute findings. Thank you for allowing us to participate in the care of your patient. Dictated and Authenticated by: Mauro Torres MD 06/18/2017 11:53 PM Eastern Time ([place] & [place]) [employer] Operator: Radiologist - Medication Orders Current Medication Orders: Discontinued Medications Famotidine (Pepcid) 20 mg IVP STAT STA Stop: 06/18/17 21:33 Last Admin: 06/18/17 21:45 Dose: 20 mg IVP Administration Document 06/18/17 21:45 (Rec: 06/18/17 21:57 [id number]) Charges for Administration # of IVP Administrations 1 Sodium Chloride (Sodium Chloride 0.9%) 1,000 mls @ 999 mls/hr IV .Q1H1M STA Stop: 06/18/17 22:32 Last Admin: 06/18/17 22:03 Dose: 999 mls/hr eMAR Start Stop Document 06/18/17 22:03 (Rec: 06[facility]18/17 22:03 [id number] Intravenous Solution Start Date 06/18/17 Start Time 22:03 Ondansetron HCl (Zofran Inj) 4 mg IVP STAT STA Stop: 06/18/17 21:43 Potassium Chloride (K-Dur 20 Meq Er Tab) 20 meq PO STAT STA Stop: 06/18/17 22:24 - PA / FRENCH TRANSLATOR / Resident Statement MD/DO has reviewed & agrees with the documentation as recorded. - Scribe Statement The provider has reviewed the documentation as recorded by the Scribe Radha Youngblood. All medical record entries made by the Scribe were at my direction and personally dictated by me. I have reviewed the chart and agree that the record accurately reflects my personal performance of the history, physical exam, medical decision making, and the department course for this patient. I have also personally directed, reviewed, and agree with the discharge instructions and disposition. Disposition/Present on Arrival - Present on Arrival Any Indicators Present on Arrival: No History of DVT/PE: No History of Uncontrolled Diabetes: No Urinary Catheter: No History of Decub. Ulcer: No History Surgical Site Infection Following: None - Disposition Have Diagnosis and Disposition been Completed?: Yes Diagnosis: Abdominal pain Disposition: HOME/ ROUTINE Disposition Time: 00:24 Patient Plan: Discharge Patient Problems: Current Active Problems Problem Status Onset Abdominal pain Acute Condition: IMPROVED Additional Instructions: -Discharge home with pepcid, motrin, bed rest, follow up with your own pmd and GI within 2 days, return to the ER for any new or worsening signs or symptoms. Prescriptions: Famotidine [Pepcid] 20 mg PO BID #14 tab Ibuprofen [Motrin] 600 mg PO TID PRN #21 tab PRN Reason: Other Referrals: Rashad Shaffer, [Primary Care Provider] - Follow up with primary Zac Serrano MD [Staff Provider] - Follow up with primary Forms: WORK NOTE"
[2017-06-18 22:07] LABS: BASO # 0.01 K/mm3 (0.0-2.0); BASO % 0.1 % (0.0-3.0); EOS # 0.2 (0.0-0.7); EOS % 2.1 % (1.5-5.0); GRAN # 4.69 (1.4-6.5); GRAN % 59.1 % (50.0-68.0); HEMOGLOBIN 14.3 g/dL (14.0-18.0); LYMPH # 2.1 (1.2-3.4); LYMPH % 26.9 % (22.0-35.0); MEAN CELL VOLUME 88.1 fl (80.0-105.0); MEAN CORPUSCULAR HEMOGLOBIN 30.3 pg (25.0-35.0); MEAN CORPUSCULAR HGB CONC 34.4 g/dl (31.0-37.0); MONO # 0.9 (0.1-0.6); MONO % 11.8 % (1.0-6.0); RBC 4.72 10^6/uL (3.5-6.1); RED CELL DISTRIBUTION WIDTH 13.7 % (11.5-14.5)
[2017-06-18 22:18] LABS: ALB/GLOB RATIO 1.4 (1.1-1.8); ALBUMIN 4.5 g/dL (3.0-4.8); ALT/SGPT 38 U/L (7-56); AST/SGOT 30 U/L (17-59); BLOOD UREA NITROGEN 16 mg/dL (7-21); CALCIUM 10.5 mg/dL (8.4-10.5); GFR AFRICAN-AMERICAN > 60; GFR NON-AFRICAN AMERICAN > 60; LIPASE 79 U/L (23-300)
[2017-06-18] MEDS ORDERED: Potassium Chloride 20 mEq ER Tab PO STA (22:23)
[2017-06-18] MEDS ORDERED: Iohexol 350 MG/100 ML VIAL ONE (23:03)
[2017-06-19 00:29] VITALS: TEMP 98
[2017-06-19 00:44] LABS: URINE BILIRUBIN SMALL (NEGATIVE); URINE BLOOD NEGATIVE (NEGATIVE); URINE GLUCOSE (UA) NEGATIVE (NEGATIVE); URINE LEUKOCYTE ESTERASE NEGATIVE Leu/uL (NEGATIVE); URINE PROTEIN NEGATIVE mg/dL (<30 mg/dL)
[2017-06-19 00:45] LABS: URINE APPEARANCE SL CLOUDY (CLEAR); URINE COLOR YELLOW (YELLOW)
[2017-06-19 01:11] VITALS: BP 125/72; PULSE 88; RESP 18; O2SAT 100
--- NOTE | 2017-06-19 14:36 | CT ---
PROCEDURE: CT Abdomen and Pelvis with contrast HISTORY: lt. sided abdominal pain COMPARISON: None. TECHNIQUE: Contrast dose: 100 cc of Omni 350 Radiation dose: Total exam DLP = 468 mGy-cm. This CT exam was performed using one or more of the following dose reduction techniques: Automated exposure control, adjustment of the mA and/or kV according to patient size, and/or use of iterative reconstruction technique. FINDINGS: LOWER THORAX: Unremarkable. LIVER: Unremarkable. No gross lesion or ductal dilatation. GALLBLADDER AND BILE DUCTS: Unremarkable. PANCREAS: Unremarkable. No gross lesion or ductal dilatation. SPLEEN: Unremarkable. ADRENALS: Unremarkable. No mass. KIDNEYS AND URETERS: Unremarkable. No hydronephrosis. No solid mass. VASCULATURE: Unremarkable. No aortic aneurysm. BOWEL: Unremarkable. No obstruction. No gross mural thickening. APPENDIX: Normal appendix. PERITONEUM: Unremarkable. No free fluid. No free air. LYMPH NODES: Unremarkable. No enlarged lymph nodes. BLADDER: Unremarkable. REPRODUCTIVE: Unremarkable. BONES: No acute fracture. OTHER FINDINGS: None. IMPRESSION: No acute findings
== END 2017-06-19 00:53 | disposition home or self-care (01) ==
LOC: ED 21:17
DX: R10.9 Unspecified abdominal pain (principal)
CPT/HCPCS: 74177; 80053; 81003; 83690; 83735; 85025; 96374; 99285; J7040; Q9967

== ENCOUNTER 2017-10-09 22:12 | Inpatient (IN) | payer MEDICAID ==
[2017-10-09 23:05] LABS: BASO # 0.01 K/mm3 (0.0-2.0); BASO % 0.1 % (0.0-3.0); EOS # 0.2 (0.0-0.7); EOS % 2.9 % (1.5-5.0); GRAN # 4.01 (1.4-6.5); GRAN % 53.4 % (50.0-68.0); HEMOGLOBIN 13.5 g/dL (14.0-18.0); LYMPH # 2.8 (1.2-3.4); LYMPH % 36.8 % (22.0-35.0); MEAN CELL VOLUME 86.3 fl (80.0-105.0); MEAN CORPUSCULAR HEMOGLOBIN 29.8 pg (25.0-35.0); MEAN CORPUSCULAR HGB CONC 34.5 g/dl (31.0-37.0); MEAN PLATELET VOLUME 9.5 fl (7.0-11.0); MONO # 0.5 (0.1-0.6); MONO % 6.8 % (1.0-6.0); RBC 4.53 10^6/uL (3.5-6.1); RED CELL DISTRIBUTION WIDTH 13.5 % (11.5-14.5); WHITE BLOOD COUNT 7.5 10^3/ul (4.5-11.0)
[2017-10-09 23:11] LABS: URINE BILIRUBIN NEGATIVE (NEGATIVE); URINE BLOOD NEGATIVE (NEGATIVE); URINE GLUCOSE (UA) NEGATIVE (NEGATIVE); URINE LEUKOCYTE ESTERASE NEGATIVE Leu/uL (NEGATIVE); URINE PROTEIN NEGATIVE mg/dL (<30 mg/dL)
[2017-10-09 23:14] LABS: ACETAMINOPHEN < 10.0 ug/ml (10.0-20.0); SALICYLATE < 1 mg/dL (2.0-20.0)
[2017-10-09 23:16] LABS: ALB/GLOB RATIO 1.5 (1.1-1.8); ALBUMIN 4.3 g/dL (3.0-4.8); ALT/SGPT 36 U/L (7-56); AST/SGOT 20 U/L (17-59); BLOOD UREA NITROGEN 13 mg/dL (7-21); CALCIUM 9.3 mg/dL (8.4-10.5); GFR AFRICAN-AMERICAN > 60; GFR NON-AFRICAN AMERICAN > 60
[2017-10-09 23:27] LABS: URINE APPEARANCE CLEAR (CLEAR); URINE COLOR YELLOW (YELLOW)
--- NOTE | 2017-10-09 23:31 | ED PDOC ---
Arrival/HPI - General Chief Complaint: Psychiatric Evaluation Time Seen by Provider: 10/09/17 22:37 Historian: Patient - History of Present Illness Narrative History of Present Illness (Text): 10/09/17 23:36 A 22 year old male, who denies any past medical history, presents to the emergency department complaining of suicidal ideation and anxiety. Patient reports experiencing anxiety for 2 days, and suicidal for 1 day. States he is thinking of walking in front of a bus. Patient denies any homicidal ideation, auditory/visual hallucinations, or any other complaints at this time. Also, patient mentions he takes medications for the last time he was here for depression, however he is uncertain of the name of the medication that was prescribed for him. No PMD Past Medical History - Provider Review Nursing Documentation Reviewed: Yes - Tetanus Immunization Tetanus Immunization: Unknown - Cardiac Hx Cardiac Disorders: No - Pulmonary Hx Respiratory Disorders: No - Neurological Hx Neurological Disorder: No - HEENT Hx HEENT Disorder: No - Renal Hx Renal Disorder: No - Endocrine/Metabolic Hx Endocrine Disorders: No - Hematological/Oncological Hx Blood Disorders: No - Integumentary Hx Dermatological Disorder: No - Musculoskeletal/Rheumatological Hx Musculoskeletal Disorders: No - Gastrointestinal Hx Gastrointestinal Disorders: No - Genitourinary/Gynecological Hx Genitourinary Disorders: No - Psychiatric Hx Substance Use: No Other/Comment: ADHD Family/Social History - Physician Review Nursing Documentation Reviewed: Yes Family/Social History: No Known Family HX Smoking Status: Never Smoked Hx Alcohol Use: Yes Hx Substance Use: No Allergies/Home Meds Allergies/Adverse Reactions: Allergies No Known Allergies Allergy (Verified 10/10/17 03:34) Review of Systems - Physician Review All systems were reviewed & negative as marked: Yes - Review of Systems Constitutional: absent: Fevers, Night Sweats Respiratory: absent: SOB Cardiovascular: absent: Chest Pain Gastrointestinal: absent: Abdominal Pain, Diarrhea, Nausea, Vomiting Psychiatric: Suicidal Ideation. absent: Other (no homicidal ideation, no auditory/visual hallucinations.) Physical Exam Vital Signs Reviewed: Yes Vital Signs Temp Pulse Resp BP Pulse Ox 10/10/17 01:01 76 16 122/72 99 10/09/17 22:28 98.7 F 85 20 120/70 98 Temperature: Afebrile Blood Pressure: Normal Pulse: Regular Respiratory Rate: Normal Appearance: Positive for: Well-Appearing, Non-Toxic, Comfortable Pain Distress: None Mental Status: Positive for: Alert and Oriented X 3 - Systems Exam Head: Present: Atraumatic, Normocephalic Pupils: Present: PERRL Extroacular Muscles: Present: EOMI Conjunctiva: Present: Normal Mouth: Present: Moist Mucous Membranes Neck: Present: Normal Range of Motion Respiratory/Chest: Present: Clear to Auscultation, Good Air Exchange. No: Respiratory Distress, Accessory Muscle Use Cardiovascular: Present: Regular Rate and Rhythm, Normal S1, S2. No: Murmurs Abdomen: No: Tenderness, Distention, Peritoneal Signs Back: Present: Normal Inspection Upper Extremity: Present: Normal Inspection. No: Cyanosis, Edema Lower Extremity: Present: Normal Inspection. No: Edema Neurological: Present: GCS=15, CN II-XII Intact, Speech Normal Skin: Present: Warm, Dry, Normal Color. No: Rashes Psychiatric: Present: Alert, Oriented x 3, Normal Insight, Normal Concentration Medical Decision Making ED Course and Treatment: 10/09/17 23:38 Impression: 22 year old male with suicidal ideation and anxiety. No acute findings on physical examination. Plan: -- EKG -- Chest X-ray -- Labs -- Urinalysis -- Reassess and disposition Progress Notes: EKG: Ordered, reviewed, and independently interpreted the EKG. Rate : 87 BPM Rhythm : NSR Interpretation : No ST-segment elevations or depressions, no T-wave inversions, normal intervals. Comparison : No previous EKG for comparison. - Lab Interpretations Lab Results: 10/09/17 22:43 10/09/17 22:43 Lab Results 10/09/17 22:43: Alcohol, Quantitative < 10 10/09/17 22:43: Salicylates < 1 L, Acetaminophen < 10.0 L 10/09/17 22:43: Sodium 144, Potassium 3.4 L, Chloride 104, Carbon Dioxide 27, Anion Gap 16, BUN 13, Creatinine 0.7 L, Est GFR ( Amer) > 60, Est GFR ( Non-Af Amer) > 60, Random Glucose 118 H, Calcium 9.3, Total Bilirubin 0.4, AST 20, ALT 36, Alkaline Phosphatase 62, Total Protein 7.2, Albumin 4.3, Globulin 2.9, Albumin/Globulin Ratio 1.5 10/09/17 22:43: Urine Color Yellow, Urine Appearance Clear, Urine pH 6.0, Ur Specific [place] >= 1.030, Urine Protein Negative, Urine Glucose (UA) Negative, Urine Ketones 15 H, Urine Blood Negative, Urine Nitrate Negative, Urine Bilirubin Negative, Urine Urobilinogen 1.0 H, Ur Leukocyte Esterase Negative 10/09/17 22:43: WBC 7.5, RBC 4.53, Hgb 13.5 L, Hct 39.1 L, MCV 86.3, MCH 29.8, MCHC 34.5, RDW 13.5, Plt Count 235, MPV 9.5, Gran % 53.4, Lymph % (Auto) 36.8 H , [place] % (Auto) 6.8 H, Eos % (Auto) 2.9, Baso % (Auto) 0.1, Gran # 4.01, Lymph # (Auto) 2.8, Story # (Auto) 0.5, Eos # (Auto) 0.2, Baso # (Auto) 0.01 - RAD Interpretation Radiology Orders: 10/09/17 22:39 CHEST ONE VIEW [RAD] Stat - Medication Orders Current Medication Orders: Acetaminophen (Tylenol 325mg Tab) 650 mg PO Q4 PRN PRN Reason: Pain, moderate (4-7) Al Hydrox/Mg Hydrox/Simethicone (Maalox Plus 30 Ml) 30 ml PO DAILY PRN PRN Reason: Upset Stomach Magnesium Hydroxide (Milk Of Magnesia) 30 ml PO DAILY PRN PRN Reason: Constipation Discontinued Medications Potassium Chloride (K-Dur 20 Meq Er Tab) 20 meq PO STAT STA Stop: 10/10/17 02:28 - Scribe Statement The provider has reviewed the documentation as recorded by the Tiffanie Mercado Provider Scribe Attestation: All medical record entries made by the Scribjudy were at my direction and personally dictated by me. I have reviewed the chart and agree that the record accurately reflects my personal performance of the history, physical exam, medical decision making, and the department course for this patient. I have also personally directed, reviewed, and agree with the discharge instructions and disposition. Disposition/Present on Arrival - Present on Arrival Any Indicators Present on Arrival: No History of DVT/PE: No History of Uncontrolled Diabetes: No Urinary Catheter: No History of Decub. Ulcer: No History Surgical Site Infection Following: None - Disposition Have Diagnosis and Disposition been Completed?: Yes Diagnosis: Major depressive disorder Disposition: HOSPITALIZED Disposition Time: 01:00 Condition: STABLE
[2017-10-10] MEDS ORDERED: Potassium Chloride 20 mEq ER Tab PO STA (02:27)
[2017-10-10 03:03] LABS: BARBITURATES, UR NEGATIVE (NEGATIVE); BENZODIAZEPINES, UR NEGATIVE (NEGATIVE); OPIATES, UR NEGATIVE (NEGATIVE); PHENCYCLIDINE, UR NEGATIVE (NEGATIVE)
[2017-10-10] MEDS ORDERED: Alum-Mag Hydrox-Simethicone Susp (30 mL) PO PRN (03:26)
[2017-10-10] MEDS ORDERED: Magnesium Hydroxide Susp 30 ml UD PO PRN (03:26)
[2017-10-10 03:29] VITALS: O2SAT 100
[2017-10-10 03:38] VITALS: BMI 25.9
--- NOTE | 2017-10-10 04:03 | PCM.BM ---
<Terrance Mullins - Last Filed: 10/10/17 04:00> Treatment Plan Problems - Problems identified on initial assessmt Medication Nonadherence Date Initiated: 10/10/17 Time Initiated: 03:00 Assessment reference: NA Status: Active Priority: 1 Ineffective Coping Date Initiated: 10/10/17 Time Initiated: 03:00 Assessment reference: NA Status: Active Priority: 2 Altered Sleep Patterns Date Initiated: 10/10/17 Time Initiated: 03:00 Assessment reference: NA Status: Active Priority: 3 Treatment assets and liabiliti Patient Assests: cooperative, self-reliant, ADL independent, negotiates basic needs Patient Liabilities: live alone, other - Milieu Protocol Maintain good personal hygiene: daily Encourage regular showers, daily Remind patient to perform daily oral care Conduct patient checks and document Observation sheet: Q15 minutes Maintain personal safety: daily Monitor environment for contraband/sharps, every shift Educate patient to report safety concerns to staff Medication safety: Monitor for expected outcome, potential side effects: every shift, Assess barriers to learning: every shift, Assess readiness for medication education: every shift Discharge/Continuing Care - Education Needs Education Needs: Patient Medication, Patient Diagnosis/Disease Process, Patient Coping Skills, Patient Community resources, Patient Health Practices/Safety - Discharge Discharge Criteria: Tolerates medication w/o severe side effects, Free of Suicidal thoughts, Normal sleep pattern <Kimberlee Dahl - Last Filed: 10/10/17 15:14> - Diagnosis (1) Major depressive disorder Status: Acute Interventions: 10/10/17 15:15 Psychoeducation Psychopharmacology/adjustment of medications as needed/ monitoring possible side effects Evaluate pt on daily basis Compliance with medications and follow up appointments Suicide and homicide risk assessment and prevention Relapse prevention Reduction of symptoms Improve functional status Family involvement As outpatient: cognitive behavioral therapy <Diana Valladares - Last Filed: 10/11/17 15:45> Family Contact Family involvement: Famliy/SO not involved <Faith Jefferson - Last Filed: 10/12/17 14:34>
[2017-10-10 08:00] LABS: GLUCOSE,FASTING 97 mg/dL (65-110); HDL CHOLESTEROL 35 mg/dL (29-60)
[2017-10-10 08:12] LABS: LDL CHOLESTEROL 70 mg/dL (0-129)
--- NOTE | 2017-10-10 11:04 | RAD ---
Date of service: 10/09/2017 PROCEDURE: CHEST RADIOGRAPH, 1 VIEW HISTORY: r/o infiltrate COMPARISON: 05/11/2017 FINDINGS: LUNGS: Clear. PLEURA: No pneumothorax or pleural fluid seen. CARDIOVASCULAR: Normal. OSSEOUS STRUCTURES: No significant abnormalities. VISUALIZED UPPER ABDOMEN: Normal. OTHER FINDINGS: None. IMPRESSION: No active disease.
--- NOTE | 2017-10-10 15:02 | PCM.PSYCH ---
<Katharine Thomas - Last Filed: 10/10/17 16:01> Initial Psychiatric Evaluation - Initial Psychiatric Evaluation Type of Admission: Voluntary Legal Status: Capacity Chief Complaint (in patient's own words): I was really stressed at work and was thinking about just hurting myself. I saw a bus drive by and thought about jumping in front of it, maybe to break some bones, but then I decided to come here instead. Everything was excellent until I got this stressful patient 2 weeks ago and I just need to get help with coping. Patient's Reaction to Hospitalization: Patient was hospitalized to the psychiatric unit for evaluation and management after expressing suicidal thoughts. History of Present Illness and Precipitating Events: Ben Grullon is a 22 yo male with a history of MDD and ADHD with one prior psych hospitalization who brought himself to the ED for help with thoughts of wanting to hurt himself as a response to increased stress. The patient was last hospitalized at [facility] for depression and SI in April 2017. At this time, he was homeless and unemployed. Since discharge, the patient has had stable housing by renting a room from a family friend in [place]. 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 However, the patient failed to follow-up with outpatient psychiatric care and denies taking any current medications. The patient reports that his job and life were going very well up until he started taking care of a difficult patient approximately 2 weeks ago. Since this time, the patient reports feeling increased anxiety and stress. He also endorses poor sleep. For the past 2 days, the patient was thinking about hurting himself, without a clear goal. He also endorse auditory hallucinations 2 days ago of 2 people talking but he cannot make out what they are saying. Yesterday, he saw a bus and considered jumping in front of it. He was able to stop himself and bring himself in to the hospital for help. The patient was seen this morning in the conference room. He has acceptable grooming/hygiene and is dressed in casual clothing. He has dyed blonde and blue hair. He is calm and cooperative. He has good eye contact. His affect is flat but reactive at times- he smiles intermittently throughout the interview. He denies most symptoms of depression- he has good energy, concentration, and appetite. He has had good sleep up until 2 weeks ago when the stress began. He denies feeling hopeless or helpless. He is future-oriented and discusses going on vacation to the [place] next week. Patient denies any symptoms of migue, including lack of need for sleep, grandiosity, pressured speech. He endorses auditory hallucinations once in a [place], most recently 2 days ago. He is able to describe them as 2 voices, but he cannot make out what they say. he denies visual hallucinations and paranoia. He endorses some anxiety, mostly related to his job and not significantly more than others. He denies panic symptoms. He denies hx of trauma or abuse. The patient only has one prior psychiatric hospitalization, and this was at [facility] in April 2017. At this time, the patient was depressed and suicidal. He denies any suicidal attempts in his life. He was discharged on Wellbutrin but failed to follow-up as an outpatient. He states this is due to acquiring a full- time job, but now he is able to make his schedule so that he can attend outpatient appointments. He would like to start back on medications as well as learn coping skills for dealing with stress. Psych hx: Dx with MDD this year, ADHD as child 1 inpatient hospitalization 04/2017 No outpatient care PMH: none PCP- Dr. Moura FH: grandmother- T2DM mother- schizophrenia sister- schizophrenia, 1 SA via OD on ibuprofen no children SH: Rents room from family friend in [facility]) Works full-time as a licensed home health aide HS diploma No children No relationship, never Denies alcohol, tobacco, and illicit drug use Vital Signs Temp Pulse Resp BP Pulse Ox 10/10/17 07:17 97 F L 71 20 103/55 L 10/10/17 03:28 98.3 F 75 20 131/87 100 10/10/17 02:09 98.1 F 72 18 120/68 99 10/10/17 01:01 76 16 122/72 99 10/09/17 22:28 98.7 F 85 20 120/70 98 10/09/17 22:43 10/09/17 22:43 Lab Results 10/10/17 07:20: TSH 3rd Generation 1.52 10/10/17 07:20: Fasting Glucose 97, Triglycerides 65, Cholesterol 123 L, LDL Cholesterol Direct 70, HDL Cholesterol 35 10/10/17 02:25: Urine Opiates Screen Negative, Urine Methadone Screen Negative, Ur Barbiturates Screen Negative, Ur Phencyclidine Scrn Negative, Ur Amphetamines Screen Negative, U Benzodiazepines Scrn Negative, U Oth Cocaine Metabols Negative, U Cannabinoids Screen Negative 10/09/17 22:43: Alcohol, Quantitative < 10 10/09/17 22:43: Salicylates < 1 L, Acetaminophen < 10.0 L 10/09/17 22:43: Sodium 144, Potassium 3.4 L, Chloride 104, Carbon Dioxide 27, Anion Gap 16, BUN 13, Creatinine 0.7 L, Est GFR ( Amer) > 60, Est GFR ( Non-Af Amer) > 60, Random Glucose 118 H, Calcium 9.3, Total Bilirubin 0.4, AST 20, ALT 36, Alkaline Phosphatase 62, Total Protein 7.2, Albumin 4.3, Globulin 2.9, Albumin/Globulin Ratio 1.5 10/09/17 22:43: Urine Color Yellow, Urine Appearance Clear, Urine pH 6.0, Ur Specific [place] >= 1.030, Urine Protein Negative, Urine Glucose (UA) Negative, Urine Ketones 15 H, Urine Blood Negative, Urine Nitrate Negative, Urine Bilirubin Negative, Urine Urobilinogen 1.0 H, Ur Leukocyte Esterase Negative 10/09/17 22:43: WBC 7.5, RBC 4.53, Hgb 13.5 L, Hct 39.1 L, MCV 86.3, MCH 29.8, MCHC 34.5, RDW 13.5, Plt Count 235, MPV 9.5, Gran % 53.4, Lymph % (Auto) 36.8 H , [place] % (Auto) 6.8 H, Eos % (Auto) 2.9, Baso % (Auto) 0.1, Gran # 4.01, Lymph # (Auto) 2.8, [place] # (Auto) 0.5, Eos # (Auto) 0.2, Baso # (Auto) 0.01 Current Medications: Confirmed with patients pharmacy ([facility] in [place])- has not filled prescriptions since June. Patient denies taking any home meds. Active Medications Generic Name Dose Route Start Last Admin Trade Name Freq PRN Reason Stop Dose Admin Acetaminophen 650 mg 10/10/17 03:26 Tylenol 325mg Tab PO Q4 PRN Pain, moderate (4-7) Al Hydrox/Mg Hydrox/Simethicone 30 ml 10/10/17 03:26 Maalox Plus 30 Ml PO DAILY PRN Upset Stomach Bupropion HCl 75 mg 10/10/17 10:45 10/10/17 12:45 Wellbutrin PO 75 mg DAILY ANTHONY Administration Magnesium Hydroxide 30 ml 10/10/17 03:26 Milk Of Magnesia PO DAILY PRN Constipation Zaleplon 5 mg 10/10/17 10:38 Sonata PO HS PRN Insomnia Past Psychiatric History - Past Psychiatric History Previous Treatment History: Inpatient Prior Psychiatric Treatment: one previous psych hospitalization for SI and depression [facility]/2017 Duration: 5 days Nature of Treatment: medications, therapy Explanation of prior treatment: patient did not follow through with outpatient care upon discharge History of Abuse: denies History of ETOH/Drug Use: denies History of Family Illness: mother and sister have schizophrenia sister attempted suicide by OD on ibuprofen Pertinent Medical Hx (Current Medical&Sleep Prob, Allergies): none PCP- Dr. Moura Allergies Allergy/AdvReac Type Severity Reaction Status Date / Time No Known Allergies Allergy Verified 10/10/17 03:34 buPROPion XL [Wellbutrin] 150 mg PO DAILY #14 t24 05/16/17 Review of Systems - EENT Eyes: As Per HPI Ears: As Per HPI Nose/Mouth/Throat: As Per HPI - Cardiovascular Cardiovascular: As Per HPI - Respiratory Respiratory: As Per HPI - Gastrointestinal Gastrointestinal: As Per HPI - Genitourinary Genitourinary: As Per HPI - Reproductive: Male Reproductive:Male: As Per HPI - Musculoskeletal Musculoskeletal: As Par HPI - Integumentary Integumentary: As Per HPI - Neurological Neurological: As Per HPI - Psychiatric Psychiatric: As Per HPI - Endocrine Endocrine: As Per HPI - Hematologic/Lymphatic Hematologic: As Per HPI Mental Status Examination - Personal Presentation Personal Presentation: Looks stated age - Affect Affect: Other (full) - Motor Activity Motor Activity: Calm - Reliability in Providing Information Reliability in Providing Information: Good - Mood Mood: Neutral - Formal Thought Process Formal Thought Process: No Impairment - Obsessions/Compulsions Obsessions: No Compulsions: No - Cognitive Functions Orientation: Person, Place, Situation, Time Sensorium: Alert Attention/Concentration: Attentive Estimate of Intelligence: Average Judgement: Intact, as evidence by: Insight regarding need for hospitalization Memory: Recent intact, as evidence by: Ability to recall events of the day, Remote intact, as evidenced by: Abilit to recall sig. life events - Risk Risk: Suicidal - Strength & Assets Inventory Strength & Assets Inventory: Employment status, Cooperative, Other (no substance use) - Limitations Limitations: Other (family hx of schizophrenia, hx of auditory hallucinations, poor compliance) DSM 5 DX - DSM 5 DSM 5 Diagnosis: MDD by history r/o adjustment disorder r/o acute stress disorder r/o schizoaffective disorder r/o bipolar disorder - Recommended/Plan of Treatment Treatment Recommendations and Plan of Treatment: Wellbutrin 75 mg daily for depression and ADHD symptoms Sonata 5 mg qhs prn for insomnia Milieu and group therapy SW consult for discharge planning Patient was educated about risk/benefits and alternatives of medications, coping strategies (safety plan, suicide prevention), relapse prevention, importance of follow up with psychiatrist and therapist, stay away from drugs/ alcohol/smoking. Projected ELOS: 3 days Prognosis: good Discharge Plan and Discharge Criteria: Patient will be not depressed or manic, will be more hopeful, will be not psychotic or anxious, will be not having thoughts of harming self or others, will be tolerating medications well, will not have major side effects, will be able to function, will not pose threat to self or others. - Smoking Cessation Smoking Cessation Initiated: No Reason for not providing: Denies tobacco use <Kimberlee Dahl - Last Filed: 10/11/17 12:07> Initial Psychiatric Evaluation - Initial Psychiatric Evaluation Legal Status: Capacity (pt has capacity to sign consent for treatment) History of Present Illness and Precipitating Events: pt was seen and examined 10/10/17 with medical student and journalism intern pt presented to have acceptable personal hygiene, fair ADLs. bleached/bluish hair, pt presented with affect with seems to be mood incongruent , pt was depressed, but smiling, could be related to anxiety pt was doing well up until two weeks ago, pt was admitted for depression and possible SI agree with assessment and plan . denied smoking, denied alcohol consumption Current Medications: Active Medications Generic Name Dose Route Start Last Admin Trade Name Freq PRN Reason Stop Dose Admin Acetaminophen 650 mg 10/10/17 03:26 Tylenol 325mg Tab PO Q4 PRN Pain, moderate (4-7) Al Hydrox/Mg Hydrox/Simethicone 30 ml 10/10/17 03:26 Maalox Plus 30 Ml PO DAILY PRN Upset Stomach Bupropion HCl 75 mg 10/10/17 10:45 10/11/17 08:43 Wellbutrin PO 75 mg DAILY ANTHONY Administration Magnesium Hydroxide 30 ml 10/10/17 03:26 Milk Of Magnesia PO DAILY PRN Constipation Zaleplon 5 mg 10/10/17 10:38 Sonata PO HS PRN Insomnia Past Psychiatric History - Past Psychiatric History Pertinent Medical Hx (Current Medical&Sleep Prob, Allergies): Allergies Allergy/AdvReac Type Severity Reaction Status Date / Time No Known Allergies Allergy Verified 10/10/17 03:34 buPROPion XL [Wellbutrin] 150 mg PO DAILY #14 t24 05/16/17 DSM 5 DX - Recommended/Plan of Treatment Treatment Recommendations and Plan of Treatment: agree with assessment and plan
--- NOTE | 2017-10-10 16:26 | CARD ---
APPROVED REPORT Date of service: 10/09/2017 EKG Measurement Heart [id number] <Conclusion> Normal sinus rhythm with sinus arrhythmia Nonspecific T wave abnormality Abnormal ECG
--- NOTE | 2017-10-11 12:42 | PCM.PYCHPN ---
<Katharine Thomas - Last Filed: 10/11/17 12:48> Psychiatric Progress Note - Psychiatric Progress Note Patient seen today, length of contact: 30 minutes Patient Chief Complaint: Im feeling much better than yesterday. I had trouble sleeping though; I couldn t fall asleep until 1 AM. Also, they never came to check my potassium. They just gave me a banana last night. Problems Identified/Issues Discussed: Suicide/ homicide prevention, past psychiatric h/o, current psychiatric symptoms , medical problems, risk/benefits and alternatives of medications, medications compliance, coping strategies, substance abuse h/o, relapse prevention, importance of follow up with psychiatrist and therapist, discharge plan. Medical Problems: none Diagnostic Results: Vital Signs Temp Pulse Resp BP Pulse Ox 10/11/17 07:26 97.6 F 70 20 114/75 10/10/17 16:00 87 125/79 10/10/17 07:17 97 F L 71 20 103/55 L 10/10/17 03:28 98.3 F 75 20 131/87 100 10/10/17 02:09 98.1 F 72 18 120/68 99 10/10/17 01:01 76 16 122/72 99 10/09/17 22:28 98.7 F 85 20 120/70 98 10/09/17 22:43 10/09/17 22:43 Lab Results 10/10/17 07:20: RPR Nonreactive 10/10/17 07:20: TSH 3rd Generation 1.52 10/10/17 07:20: Fasting Glucose 97, Triglycerides 65, Cholesterol 123 L, LDL Cholesterol Direct 70, HDL Cholesterol 35 10/10/17 02:25: Urine Opiates Screen Negative, Urine Methadone Screen Negative, Ur Barbiturates Screen Negative, Ur Phencyclidine Scrn Negative, Ur Amphetamines Screen Negative, U Benzodiazepines Scrn Negative, U Oth Cocaine Metabols Negative, U Cannabinoids Screen Negative 10/09/17 22:43: Alcohol, Quantitative < 10 10/09/17 22:43: Salicylates < 1 L, Acetaminophen < 10.0 L 10/09/17 22:43: Sodium 144, Potassium 3.4 L, Chloride 104, Carbon Dioxide 27, Anion Gap 16, BUN 13, Creatinine 0.7 L, Est GFR ( Amer) > 60, Est GFR ( Non-Af Amer) > 60, Random Glucose 118 H, Calcium 9.3, Total Bilirubin 0.4, AST 20, ALT 36, Alkaline Phosphatase 62, Total Protein 7.2, Albumin 4.3, Globulin 2.9, Albumin/Globulin Ratio 1.5 10/09/17 22:43: Urine Color Yellow, Urine Appearance Clear, Urine pH 6.0, Ur Specific [place] >= 1.030, Urine Protein Negative, Urine Glucose (UA) Negative, Urine Ketones 15 H, Urine Blood Negative, Urine Nitrate Negative, Urine Bilirubin Negative, Urine Urobilinogen 1.0 H, Ur Leukocyte Esterase Negative 10/09/17 22:43: WBC 7.5, RBC 4.53, Hgb 13.5 L, Hct 39.1 L, MCV 86.3, MCH 29.8, MCHC 34.5, RDW 13.5, Plt Count 235, MPV 9.5, Gran % 53.4, Lymph % (Auto) 36.8 H , [place] % (Auto) 6.8 H, Eos % (Auto) 2.9, Baso % (Auto) 0.1, Gran # 4.01, Lymph # (Auto) 2.8, [place] # (Auto) 0.5, Eos # (Auto) 0.2, Baso # (Auto) 0.01 DSM 5 Symptoms Update: Ben Grullon is a 22 yo male with a history of MDD and ADHD with one prior psych hospitalization who brought himself to the ED for help with thoughts of wanting to hurt himself as a response to increased stress. The patient was last hospitalized at [facility] [place] for depression and SI in April 2017. At this time, he was homeless and unemployed. Since discharge, the patient has had stable housing by renting a room from a family friend in [place]. 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 However, the patient failed to follow-up with outpatient psychiatric care and denies taking any current medications. The patient reports that his job and life were going very well up until he started taking care of a difficult patient approximately 2 weeks ago. Since this time, the patient reports feeling increased anxiety and stress. He also endorses poor sleep. For the past 2 days, the patient was thinking about hurting himself, without a clear goal. He also endorse auditory hallucinations 2 days ago of 2 people talking but he cannot make out what they are saying. Yesterday, he saw a bus and considered jumping in front of it. He was able to stop himself and bring himself in to the hospital for help. Patient was seen this morning in the day room. He presents with acceptable grooming/hygiene. He appears slightly anxious. He says he is feeling much better than yesterday and likes the Wellbutrin. He reports he could not fall asleep until 1 AM. He was reminded he can have Sonata as needed. He seems concerned about his potassium level- it was slightly low in the ED and was replaced. He was assured it was not a problem, but he continued to ask about it later in the day. He reprots he was in contact with his job, and they are willing to work with him and give the patient was causing increased stress to another home health aide. The patient is observed to be out in the milieu, interacting with others and participating in groups. He has a good appetite. He is compliant with medications and is tolerating them well without side effects. He denies SI and HI and is able to contract for safety. Impression: MDD by history r/o adjustment disorder r/o acute stress disorder r/o schizoaffective disorder r/o bipolar disorder Medication Change: No (started Wellbutrin yesterday) Medical Record Reviewed: Yes Consults ordered or reviewed: none Mental Status Examination - Cognitive Function Orientation: Person, Place, Situation, Time Memory: Intact Attention: WNL Concentration: WNL Association: WN Fund of Knowledge: [facility] Decription of patient's judgement and insights: good insight and judgment - Mood Mood: Neutral - Affect Affect: Constricted (but reactive) - Speech Speech: Appropriate - Formal Thought Process Formal Thought Process: No Impairment - Suicidal Ideation Suicidal Ideation: No - Homicidal Ideation Homicidal Ideation: No Goal/Treatment Plan - Goal/Treatment Plan Need for Continued Stay: Remain at risks for inpatient hospitalization, Discharge may exacerbated symptoms Progress Toward Problem(s) and Goals/Treatment Plan: Wellbutrin 75 mg daily for depression and ADHD symptoms Sonata 5 mg qhs prn for insomnia Milieu and group therapy SW consult for discharge planning Patient was educated about risk/benefits and alternatives of medications, coping strategies (safety plan, suicide prevention), relapse prevention, importance of follow up with psychiatrist and therapist, stay away from drugs/ alcohol/smoking. Estimated Date of D/C: 10/13/17 - Smoking Cessation Smoking Cessation Initiated: No Reason for not providing: denies tobacco use <Kimberlee Dahl - Last Filed: 10/11/17 14:59> Psychiatric Progress Note - Psychiatric Progress Note DSM 5 Symptoms Update: pt was seen and examined at the tx team meeting agree with assessment and plan
[2017-10-11 15:26] LABS: ALB/GLOB RATIO 1.6 (1.1-1.8); ALBUMIN 4.7 g/dL (3.0-4.8); AST/SGOT 15 U/L (17-59); BLOOD UREA NITROGEN 9 mg/dL (7-21); CALCIUM 9.7 mg/dL (8.4-10.5); GFR AFRICAN-AMERICAN > 60; GFR NON-AFRICAN AMERICAN > 60
[2017-10-11 15:27] LABS: ALT/SGPT 23 U/L (7-56)
--- NOTE | 2017-10-12 10:54 | PCM.PYCHPN ---
<Katharine Thomas - Last Filed: 10/12/17 14:35> Psychiatric Progress Note - Psychiatric Progress Note Patient seen today, length of contact: 30 minutes Patient Chief Complaint: Good morning. Im good. Problems Identified/Issues Discussed: Suicide/ homicide prevention, past psychiatric h/o, current psychiatric symptoms , medical problems, risk/benefits and alternatives of medications, medications compliance, coping strategies, substance abuse h/o, relapse prevention, importance of follow up with psychiatrist and therapist, discharge plan. Medical Problems: none Diagnostic Results: Vital Signs Temp Pulse Resp BP Pulse Ox 10/11/17 07:26 97.6 F 70 20 114/75 10/10/17 16:00 87 125/79 10/10/17 07:17 97 F L 71 20 103/55 L 10/10/17 03:28 98.3 F 75 20 131/87 100 10/10/17 02:09 98.1 F 72 18 120/68 99 10/10/17 01:01 76 16 122/72 99 10/09/17 22:28 98.7 F 85 20 120/70 98 10/09/17 22:43 10/09/17 22:43 Lab Results 10/10/17 07:20: RPR Nonreactive 10/10/17 07:20: TSH 3rd Generation 1.52 10/10/17 07:20: Fasting Glucose 97, Triglycerides 65, Cholesterol 123 L, LDL Cholesterol Direct 70, HDL Cholesterol 35 10/10/17 02:25: Urine Opiates Screen Negative, Urine Methadone Screen Negative, Ur Barbiturates Screen Negative, Ur Phencyclidine Scrn Negative, Ur Amphetamines Screen Negative, U Benzodiazepines Scrn Negative, U Oth Cocaine Metabols Negative, U Cannabinoids Screen Negative 10/09/17 22:43: Alcohol, Quantitative < 10 10/09/17 22:43: Salicylates < 1 L, Acetaminophen < 10.0 L 10/09/17 22:43: Sodium 144, Potassium 3.4 L, Chloride 104, Carbon Dioxide 27, Anion Gap 16, BUN 13, Creatinine 0.7 L, Est GFR ( Amer) > 60, Est GFR ( Non-Af Amer) > 60, Random Glucose 118 H, Calcium 9.3, Total Bilirubin 0.4, AST 20, ALT 36, Alkaline Phosphatase 62, Total Protein 7.2, Albumin 4.3, Globulin 2.9, Albumin/Globulin Ratio 1.5 10/09/17 22:43: Urine Color Yellow, Urine Appearance Clear, Urine pH 6.0, Ur Specific [place] >= 1.030, Urine Protein Negative, Urine Glucose (UA) Negative, Urine Ketones 15 H, Urine Blood Negative, Urine Nitrate Negative, Urine Bilirubin Negative, Urine Urobilinogen 1.0 H, Ur Leukocyte Esterase Negative 10/09/17 22:43: WBC 7.5, RBC 4.53, Hgb 13.5 L, Hct 39.1 L, MCV 86.3, MCH 29.8, MCHC 34.5, RDW 13.5, Plt Count 235, MPV 9.5, Gran % 53.4, Lymph % (Auto) 36.8 H , [place] % (Auto) 6.8 H, Eos % (Auto) 2.9, Baso % (Auto) 0.1, Gran # 4.01, Lymph # (Auto) 2.8, [place] # (Auto) 0.5, Eos # (Auto) 0.2, Baso # (Auto) 0.01 Temp Pulse Resp BP Pulse Ox 97.8 F 84 20 113/74 100 10/12/17 06:57 10/12/17 06:57 10/12/17 06:57 10/12/17 06:57 10/10/17 03:28 DSM 5 Symptoms Update: Ben Grullon is a 22 yo male with a history of MDD and ADHD with one prior psych hospitalization who brought himself to the ED for help with thoughts of wanting to hurt himself as a response to increased stress. The patient was last hospitalized at [facility] for depression and SI in April 2017. At this time, he was homeless and unemployed. Since discharge, the patient has had stable housing by renting a room from a family friend in [place]. 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 However, the patient failed to follow-up with outpatient psychiatric care and denies taking any current medications. The patient reports that his job and life were going very well up until he started taking care of a difficult patient approximately 2 weeks ago. Since this time, the patient reports feeling increased anxiety and stress. He also endorses poor sleep. For the past 2 days, the patient was thinking about hurting himself, without a clear goal. He also endorse auditory hallucinations 2 days ago of 2 people talking but he cannot make out what they are saying. Yesterday, he saw a bus and considered jumping in front of it. He was able to stop himself and bring himself in to the hospital for help. Patient was seen this morning in the day room. He presents with acceptable grooming/hygiene. He is happy that his potassium is now within normal limits. He appears less anxious. He is pleasant and cooperative. He states he slept well after taking Sonata. He feels his depression and anxiety symptoms have definitely improved since admission, and he is looking forward to his trip to the [place]. The patient is observed to be out in the milieu, interacting with others and participating in groups. He has a good appetite. He is compliant with medications and is tolerating them well without side effects. He denies SI and HI and is able to contract for safety. Impression: MDD by history r/o adjustment disorder r/o acute stress disorder r/o schizoaffective disorder r/o bipolar disorder Medication Change: No (will increae Wellbutrin tomorrow) Medical Record Reviewed: Yes Consults ordered or reviewed: none Mental Status Examination - Cognitive Function Orientation: Person, Place, Situation, Time Memory: Intact Attention: WNL Concentration: WNL Association: WNL Fund of Knowledge: [facility] Decription of patient's judgement and insights: good insight and judgment - Mood Mood: Other (happy) - Affect Affect: Other (full) - Speech Speech: Appropriate - Formal Thought Process Formal Thought Process: No Impairment - Suicidal Ideation Suicidal Ideation: No - Homicidal Ideation Homicidal Ideation: No Goal/Treatment Plan - Goal/Treatment Plan Need for Continued Stay: Remain at risks for inpatient hospitalization, Discharge may exacerbated symptoms Progress Toward Problem(s) and Goals/Treatment Plan: Wellbutrin 75 mg daily for depression and ADHD symptoms Sonata 5 mg qhs prn for insomnia- required 10/11 Milieu and group therapy SW consult for discharge planning Patient was educated about risk/benefits and alternatives of medications, coping strategies (safety plan, suicide prevention), relapse prevention, importance of follow up with psychiatrist and therapist, stay away from drugs/ alcohol/smoking. Estimated Date of D/C: 10/16/17 If changed, why: medicaion changes - Smoking Cessation Smoking Cessation Initiated: No Reason for not providing: denies tobacco use <Kimberlee Dahl - Last Filed: 10/12/17 16:00> Psychiatric Progress Note - Psychiatric Progress Note DSM 5 Symptoms Update: pt was seen with agree with assessment and plan pt has transient feeling of hopelessness but improving. Goal/Treatment Plan - Goal/Treatment Plan Progress Toward Problem(s) and Goals/Treatment Plan: agree with assessement and plan wellbutrin will be increased tomorrow Estimated Date of D/C: 10/17/17
--- NOTE | 2017-10-13 08:25 | PCM.PYCHPN ---
<Katharine Thomas - Last Filed: 10/13/17 08:26> Psychiatric Progress Note - Psychiatric Progress Note Patient seen today, length of contact: 30 minutes Patient Chief Complaint: Good morning. I slept well. I just wanted to ask you about if you increased the Wellbutrin. Problems Identified/Issues Discussed: Suicide/ homicide prevention, past psychiatric h/o, current psychiatric symptoms , medical problems, risk/benefits and alternatives of medications, medications compliance, coping strategies, substance abuse h/o, relapse prevention, importance of follow up with psychiatrist and therapist, discharge plan. Medical Problems: none Diagnostic Results: Vital Signs Temp Pulse Resp BP Pulse Ox 10/11/17 07:26 97.6 F 70 20 114/75 10/10/17 16:00 87 125/79 10/10/17 07:17 97 F L 71 20 103/55 L 10/10/17 03:28 98.3 F 75 20 131/87 100 10/10/17 02:09 98.1 F 72 18 120/68 99 10/10/17 01:01 76 16 122/72 99 10/09/17 22:28 98.7 F 85 20 120/70 98 10/09/17 22:43 10/09/17 22:43 Lab Results 10/10/17 07:20: RPR Nonreactive 10/10/17 07:20: TSH 3rd Generation 1.52 10/10/17 07:20: Fasting Glucose 97, Triglycerides 65, Cholesterol 123 L, LDL Cholesterol Direct 70, HDL Cholesterol 35 10/10/17 02:25: Urine Opiates Screen Negative, Urine Methadone Screen Negative, Ur Barbiturates Screen Negative, Ur Phencyclidine Scrn Negative, Ur Amphetamines Screen Negative, U Benzodiazepines Scrn Negative, U Oth Cocaine Metabols Negative, U Cannabinoids Screen Negative 10/09/17 22:43: Alcohol, Quantitative < 10 10/09/17 22:43: Salicylates < 1 L, Acetaminophen < 10.0 L 10/09/17 22:43: Sodium 144, Potassium 3.4 L, Chloride 104, Carbon Dioxide 27, Anion Gap 16, BUN 13, Creatinine 0.7 L, Est GFR ( Amer) > 60, Est GFR ( Non-Af Amer) > 60, Random Glucose 118 H, Calcium 9.3, Total Bilirubin 0.4, AST 20, ALT 36, Alkaline Phosphatase 62, Total Protein 7.2, Albumin 4.3, Globulin 2.9, Albumin/Globulin Ratio 1.5 10/09/17 22:43: Urine Color Yellow, Urine Appearance Clear, Urine pH 6.0, Ur Specific [place] >= 1.030, Urine Protein Negative, Urine Glucose (UA) Negative, Urine Ketones 15 H, Urine Blood Negative, Urine Nitrate Negative, Urine Bilirubin Negative, Urine Urobilinogen 1.0 H, Ur Leukocyte Esterase Negative 10/09/17 22:43: WBC 7.5, RBC 4.53, Hgb 13.5 L, Hct 39.1 L, MCV 86.3, MCH 29.8, MCHC 34.5, RDW 13.5, Plt Count 235, MPV 9.5, Gran % 53.4, Lymph % (Auto) 36.8 H , [place] % (Auto) 6.8 H, Eos % (Auto) 2.9, Baso % (Auto) 0.1, Gran # 4.01, Lymph # (Auto) 2.8, [place] # (Auto) 0.5, Eos # (Auto) 0.2, Baso # (Auto) 0.01 Temp Pulse Resp BP Pulse Ox 97.8 F 84 20 113/74 100 10/12/17 06:57 10/12/17 06:57 10/12/17 06:57 10/12/17 06:57 10/10/17 03:28 Temp Pulse Resp BP Pulse Ox 97.9 F 92 H 16 136/81 100 10/13/17 06:36 10/13/17 06:36 10/13/17 06:36 10/13/17 06:36 10/10/17 03:28 Laboratory Results - last 72 hr 10/10/17 10/10/17 10/11/17 07:20 07:20 14:00 Sodium 142 Potassium 4.4 Chloride 102 Carbon Dioxide 27 Anion Gap 17 BUN 9 Creatinine 0.7 L Est GFR ( Amer) > 60 Est GFR (Non-Af Amer) > 60 Random Glucose 95 Calcium 9.7 Total Bilirubin 0.3 AST 15 L D ALT 23 Alkaline Phosphatase 59 Total Protein 7.7 Albumin 4.7 Globulin 3.0 Albumin/Globulin Ratio 1.6 TSH 3rd Generation 1.52 RPR Nonreactive DSM 5 Symptoms Update: Ben Grullon is a 22 yo male with a history of MDD and ADHD with one prior psych hospitalization who brought himself to the ED for help with thoughts of wanting to hurt himself as a response to increased stress. The patient was last hospitalized at [facility] for depression and SI in April 2017. At this time, he was homeless and unemployed. Since discharge, the patient has had stable housing by renting a room from a family friend in [place]. 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 However, the patient failed to follow-up with outpatient psychiatric care and denies taking any current medications. The patient reports that his job and life were going very well up until he started taking care of a difficult patient approximately 2 weeks ago. Since this time, the patient reports feeling increased anxiety and stress. He also endorses poor sleep. For the past 2 days, the patient was thinking about hurting himself, without a clear goal. He also endorse auditory hallucinations 2 days ago of 2 people talking but he cannot make out what they are saying. Yesterday, he saw a bus and considered jumping in front of it. He was able to stop himself and bring himself in to the hospital for help. Patient was seen this morning in the day room. He presents with acceptable grooming/hygiene. He appears mildly anxious and inquires about his Wellbutrin dosage increase. It was explained that he was started at a low dose and it will slowly be increased for maximum effect. He expressed understanding and was in agreement. He is pleasant and cooperative. He states he slept well after taking Sonata. He feels his depression and anxiety symptoms have definitely improved since admission, but he is not yet ready to go home. He is in agreement to stay over the weekend with tentative discharge Monday or Monday next week. and he is looking forward to his trip to the [place]. The patient is observed to be out in the milieu, interacting with others and participating in groups. He has a good appetite. He is compliant with medications and is tolerating them well without side effects. He denies SI and HI and is able to contract for safety. Impression: MDD by history r/o adjustment disorder r/o schizoaffective disorder r/o bipolar disorder Medication Change: Yes (increased Wellbutrin) Medical Record Reviewed: Yes Consults ordered or reviewed: none Mental Status Examination - Cognitive Function Orientation: Person, Place, Situation, Time Memory: Intact Attention: WNL Concentration: WNL Association: WNL Fund of Knowledge: WNL - Mood Mood: Other (good) - Affect Affect: Other (full, mildly anxious) - Speech Speech: Appropriate - Formal Thought Process Formal Thought Process: No Impairment - Suicidal Ideation Suicidal Ideation: No - Homicidal Ideation Homicidal Ideation: No Goal/Treatment Plan - Goal/Treatment Plan Need for Continued Stay: Remain at risks for inpatient hospitalization, Discharge may exacerbated symptoms Progress Toward Problem(s) and Goals/Treatment Plan: Wellbutrin 150 mg daily for depression and ADHD symptoms Sonata 5 mg qhs prn for insomnia- required 10/11, 10/12 Milieu and group therapy SW consult for discharge planning Patient was educated about risk/benefits and alternatives of medications, coping strategies (safety plan, suicide prevention), relapse prevention, importance of follow up with psychiatrist and therapist, stay away from drugs/ alcohol/smoking. Estimated Date of D/C: 10/17/17 - Smoking Cessation Smoking Cessation Initiated: No Reason for not providing: denies tobacco use <Jacinto Torrez - Last Filed: 10/13/17 11:42> Addendum Addendum: Reviewed and in agreement with Dr. Thomas's progress note. Patient is improving on the unit. He denies any major new concerns and continues to agree to increase of Wellbutrin to 150 mg po daily today. Generally cooperative and friendly during our interview though mildly oddly related. He denies any perceptual disturbance and remains well-oriented. He is tolerating his medications and denies any new discomfort or pain. There were no behavioral issues overnight. 10/13/17 11:40
--- NOTE | 2017-10-14 09:07 | PCM.PYCHPN ---
Psychiatric Progress Note - Psychiatric Progress Note Patient seen today, length of contact: 30 minutes Patient Chief Complaint: "I am good" Problems Identified/Issues Discussed: I reviewed assessment and recent staff notes on the unit. I met with patient at bedside this morning. He remains well-oriented to month, year, location and circumstances. He remembers me from my introduction and interview yesterday. Grooming is fair. Patient denies any new concerns and continues to report sustained improvement in depression. He feels more hopeful and denies wishes or suicidal thoughts. Affect shows moderate range with appropriate reactivity. He is coherent and there is no evidence of perceptual disturbance. Patient has been relating well to other patients and remains visible on the unit. Attending and participating in groups. There were no behavioral issues overnight. Patient continues to deny any new pain, discomfort or side effects. Diagnostic Results: MDD by history r/o adjustment disorder r/o acute stress disorder r/o schizoaffective disorder r/o bipolar disorder Medication Change: Yes (increased Wellbutrin) Medical Record Reviewed: Yes Mental Status Examination - Cognitive Function Orientation: Person, Place, Situation, Time Memory: Intact Attention: WNL Concentration: WNL Association: WNL Fund of Knowledge: [facility] - Mood Mood: Other (good) - Affect Affect: Other (full, mildly anxious) - Speech Speech: Appropriate - Formal Thought Process Formal Thought Process: No Impairment - Suicidal Ideation Suicidal Ideation: No - Homicidal Ideation Homicidal Ideation: No Goal/Treatment Plan - Goal/Treatment Plan Need for Continued Stay: Remain at risks for inpatient hospitalization, Discharge may exacerbated symptoms Progress Toward Problem(s) and Goals/Treatment Plan: * c/w current tx and plan * Wellbutrin 150 mg po daily * Sonata 5 mg po HS prn: insomnia * No new lab results noted today * Vitals reviewed and noted below: Selected Entries 10/14/17 07:10 Temperature 97.8 F Pulse Rate 63 Respiratory 20 Rate Blood Pressure 110/68 Estimated Date of D/C: 10/17/17
--- NOTE | 2017-10-15 09:07 | PCM.PYCHPN ---
Psychiatric Progress Note - Psychiatric Progress Note Patient seen today, length of contact: 30 minutes Patient Chief Complaint: "I am good" Problems Identified/Issues Discussed: I reviewed recent staff notes on the unit and. met with patient at bedside this morning. He remains well-oriented to month, year, location and circumstances. Grooming is fair. Patient denies any new discomfort or pain and continues to report sustained improvement in depression. He feels more hopeful and denies wishes or suicidal thoughts. Affect shows moderate range with appropriate reactivity. He is coherent and there is no evidence of perceptual disturbance. Patient reports his appetite is good however sleep has been more restless over the weekend. Patient has been relating well to other patients and remains visible on the unit. Attending and participating in groups. Patient did have an outburst on Monday, he was yelling and swearing on the phone. He was given Ativan 0.5 mg po x1 with good effect. Otherwise patient has been in good behavioral control over the weekend thus far. Diagnostic Results: MDD by history r/o adjustment disorder r/o acute stress disorder r/o schizoaffective disorder r/o bipolar disorder Medication Change: Yes (increased Sonata) Medical Record Reviewed: Yes Mental Status Examination - Cognitive Function Orientation: Person, Place, Situation, Time Memory: Intact Attention: WNL Concentration: WNL Association: WNL Fund of Knowledge: WNL - Mood Mood: Other (good) - Affect Affect: Other (full, mildly anxious) - Speech Speech: Appropriate - Formal Thought Process Formal Thought Process: No Impairment - Suicidal Ideation Suicidal Ideation: No - Homicidal Ideation Homicidal Ideation: No Goal/Treatment Plan - Goal/Treatment Plan Need for Continued Stay: Remain at risks for inpatient hospitalization, Discharge may exacerbated symptoms Progress Toward Problem(s) and Goals/Treatment Plan: * c/w current tx and plan * Wellbutrin 150 mg po daily * Sonata 5 mg increased to Sonata 10 po HS prn: insomnia on 10/15/17 * No new lab results noted this weekend * Vitals reviewed and noted below: 10/14/17 10/14/17 10/15/17 07:10 15:37 06:34 Temperature 97.8 F 98.2 F Pulse Rate 63 94 H 73 Respiratory 20 20 Rate Blood Pressure 110/68 130/70 133/77 Estimated Date of D/C: 10/17/17
--- NOTE | 2017-10-16 15:08 | PCM.PYCHPN ---
Psychiatric Progress Note - Psychiatric Progress Note Patient seen today, length of contact: 30 minutes Patient Chief Complaint: "I don't feel good, my mood is changing like a weather, it is up and down" Problems Identified/Issues Discussed: Suicide/ homicide prevention, past psychiatric h/o, current psychiatric symptoms , medical problems, risk/benefits and alternatives of medications, medications compliance, coping strategies, substance abuse h/o, relapse prevention, importance of follow up with psychiatrist and therapist, discharge plan. Medical Problems: denied Diagnostic Results: 10/09/17 22:43 10/11/17 14:00 Lab Results 10/11/17 14:00: Sodium 142, Potassium 4.4, Chloride 102, Carbon Dioxide 27, Anion Gap 17, BUN 9, Creatinine 0.7 L, Est GFR ( Amer) > 60, Est GFR (Non -Af Amer) > 60, Random Glucose 95, Calcium 9.7, Total Bilirubin 0.3, AST 15 L D , ALT 23, Alkaline Phosphatase 59, Total Protein 7.7, Albumin 4.7, Globulin 3.0 , Albumin/Globulin Ratio 1.6 10/10/17 07:20: RPR Nonreactive 10/10/17 07:20: TSH 3rd Generation 1.52 10/10/17 07:20: Fasting Glucose 97, Triglycerides 65, Cholesterol 123 L, LDL Cholesterol Direct 70, HDL Cholesterol 35 10/10/17 02:25: Urine Opiates Screen Negative, Urine Methadone Screen Negative, Ur Barbiturates Screen Negative, Ur Phencyclidine Scrn Negative, Ur Amphetamines Screen Negative, U Benzodiazepines Scrn Negative, U Oth Cocaine Metabols Negative, U Cannabinoids Screen Negative 10/09/17 22:43: Alcohol, Quantitative < 10 10/09/17 22:43: Salicylates < 1 L, Acetaminophen < 10.0 L 10/09/17 22:43: Sodium 144, Potassium 3.4 L, Chloride 104, Carbon Dioxide 27, Anion Gap 16, BUN 13, Creatinine 0.7 L, Est GFR ( Amer) > 60, Est GFR ( Non-Af Amer) > 60, Random Glucose 118 H, Calcium 9.3, Total Bilirubin 0.4, AST 20, ALT 36, Alkaline Phosphatase 62, Total Protein 7.2, Albumin 4.3, Globulin 2.9, Albumin/Globulin Ratio 1.5 10/09/17 22:43: Urine Color Yellow, Urine Appearance Clear, Urine pH 6.0, Ur Specific [place] >= 1.030, Urine Protein Negative, Urine Glucose (UA) Negative, Urine Ketones 15 H, Urine Blood Negative, Urine Nitrate Negative, Urine Bilirubin Negative, Urine Urobilinogen 1.0 H, Ur Leukocyte Esterase Negative 10/09/17 22:43: WBC 7.5, RBC 4.53, Hgb 13.5 L, Hct 39.1 L, MCV 86.3, MCH 29.8, MCHC 34.5, RDW 13.5, Plt Count 235, MPV 9.5, Gran % 53.4, Lymph % (Auto) 36.8 H , [place] % (Auto) 6.8 H, Eos % (Auto) 2.9, Baso % (Auto) 0.1, Gran # 4.01, Lymph # (Auto) 2.8, [place] # (Auto) 0.5, Eos # (Auto) 0.2, Baso # (Auto) 0.01 Vital Signs Temp Pulse Resp BP Pulse Ox 10/16/17 06:48 99.2 F 76 20 116/66 10/15/17 16:20 98 H 118/74 10/15/17 06:34 98.2 F 73 20 133/77 10/14/17 15:37 94 H 130/70 10/14/17 07:10 97.8 F 63 20 110/68 10/13/17 06:36 97.9 F 92 H 16 136/81 10/12/17 16:00 83 121/74 10/12/17 06:57 97.8 F 84 20 113/74 10/11/17 16:00 99 H 123/80 10/11/17 07:26 97.6 F 70 20 114/75 10/10/17 16:00 87 125/79 10/10/17 07:17 97 F L 71 20 103/55 L 10/10/17 03:28 98.3 F 75 20 131/87 100 10/10/17 02:09 98.1 F 72 18 120/68 99 10/10/17 01:01 76 16 122/72 99 10/09/17 22:28 98.7 F 85 20 120/70 98 DSM 5 Symptoms Update: Ben Grullon is a 22 yo male with a history of MDD and ADHD with one prior psych hospitalization who brought himself to the ED for help with thoughts of wanting to hurt himself as a response to increased stress. The patient was last hospitalized at [facility] for depression and SI in April 2017. At this time, he was homeless and unemployed. Since discharge, the patient has had stable housing by renting a room from a family friend in [place]. 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 However, the patient failed to follow-up with outpatient psychiatric care and denies taking any current medications. The patient reports that his job and life were going very well up until he started taking care of a difficult patient approximately 2 weeks ago. Since this time, the patient reports feeling increased anxiety and stress. He also endorses poor sleep. For the past 2 days, the patient was thinking about hurting himself, without a clear goal. He also endorse auditory hallucinations 2 days ago of 2 people talking but he cannot make out what they are saying. Yesterday, he saw a bus and considered jumping in front of it. He was able to stop himself and bring himself in to the hospital for help. Patient was seen this morning at the treatment team meeting, patient presented with good personal hygiene, patient presented to be anxious saying that his mood is "going up and down", patient reports that he still feels depressed and "not ready to go yet". Patient denied hearing voices, denied seeing things, denied paranoid ideations, patient does not appear to be psychotic. Patient asked for he is sleeping PLT be changed to something else, at the same time patient slept well on Sonata. He denies SI and HI and is able to contract for safety. Patient tolerates medications well, no side effects observed or reported, aims 0 , no EPS. Impression: MDD by history r/o adjustment disorder r/o acute stress disorder r/o schizoaffective disorder Medication Change: No (increased Sonata last night) Medical Record Reviewed: Yes Consults ordered or reviewed: pt was seen by medical team in ED. Mental Status Examination - Cognitive Function Orientation: Person, Place, Situation, Time Memory: Intact Attention: WNL Concentration: WNL Association: WNL Fund of Knowledge: WNL - Mood Mood: Depressed ("my mood is up and down"), Other - Affect Affect: Other (full, mildly anxious) - Speech Speech: Appropriate - Formal Thought Process Formal Thought Process: No Impairment - Suicidal Ideation Suicidal Ideation: No - Homicidal Ideation Homicidal Ideation: No Goal/Treatment Plan - Goal/Treatment Plan Need for Continued Stay: Remain at risks for inpatient hospitalization, Discharge may exacerbated symptoms Progress Toward Problem(s) and Goals/Treatment Plan: Wellbutrin 150 mg daily for depression and ADHD symptoms Sonata 10 mg qhs prn for insomnia- required 10/15 Milieu and group therapy SW consult for discharge planning Patient was educated about risk/benefits and alternatives of medications, coping strategies (safety plan, suicide prevention), relapse prevention, importance of follow up with psychiatrist and therapist, stay away from drugs/ alcohol/smoking. Estimated Date of D/C: 10/17/17
--- NOTE | 2017-10-17 16:08 | PCM.PYCHPN ---
Psychiatric Progress Note - Psychiatric Progress Note Patient seen today, length of contact: 30 minutes Patient Chief Complaint: "I feel little better" Problems Identified/Issues Discussed: Suicide/ homicide prevention, past psychiatric h/o, current psychiatric symptoms , medical problems, risk/benefits and alternatives of medications, medications compliance, coping strategies, substance abuse h/o, relapse prevention, importance of follow up with psychiatrist and therapist, discharge plan. Medical Problems: denied Diagnostic Results: 10/09/17 22:43 10/11/17 14:00 Lab Results 10/11/17 14:00: Sodium 142, Potassium 4.4, Chloride 102, Carbon Dioxide 27, Anion Gap 17, BUN 9, Creatinine 0.7 L, Est GFR ( Amer) > 60, Est GFR (Non -Af Amer) > 60, Random Glucose 95, Calcium 9.7, Total Bilirubin 0.3, AST 15 L D , ALT 23, Alkaline Phosphatase 59, Total Protein 7.7, Albumin 4.7, Globulin 3.0 , Albumin/Globulin Ratio 1.6 10/10/17 07:20: RPR Nonreactive 10/10/17 07:20: TSH 3rd Generation 1.52 10/10/17 07:20: Fasting Glucose 97, Triglycerides 65, Cholesterol 123 L, LDL Cholesterol Direct 70, HDL Cholesterol 35 10/10/17 02:25: Urine Opiates Screen Negative, Urine Methadone Screen Negative, Ur Barbiturates Screen Negative, Ur Phencyclidine Scrn Negative, Ur Amphetamines Screen Negative, U Benzodiazepines Scrn Negative, U Oth Cocaine Metabols Negative, U Cannabinoids Screen Negative 10/09/17 22:43: Alcohol, Quantitative < 10 10/09/17 22:43: Salicylates < 1 L, Acetaminophen < 10.0 L 10/09/17 22:43: Sodium 144, Potassium 3.4 L, Chloride 104, Carbon Dioxide 27, Anion Gap 16, BUN 13, Creatinine 0.7 L, Est GFR ( Amer) > 60, Est GFR ( Non-Af Amer) > 60, Random Glucose 118 H, Calcium 9.3, Total Bilirubin 0.4, AST 20, ALT 36, Alkaline Phosphatase 62, Total Protein 7.2, Albumin 4.3, Globulin 2.9, Albumin/Globulin Ratio 1.5 10/09/17 22:43: Urine Color Yellow, Urine Appearance Clear, Urine pH 6.0, Ur Specific [place] >= 1.030, Urine Protein Negative, Urine Glucose (UA) Negative, Urine Ketones 15 H, Urine Blood Negative, Urine Nitrate Negative, Urine Bilirubin Negative, Urine Urobilinogen 1.0 H, Ur Leukocyte Esterase Negative 10/09/17 22:43: WBC 7.5, RBC 4.53, Hgb 13.5 L, Hct 39.1 L, MCV 86.3, MCH 29.8, MCHC 34.5, RDW 13.5, Plt Count 235, MPV 9.5, Gran % 53.4, Lymph % (Auto) 36.8 H , [place] % (Auto) 6.8 H, Eos % (Auto) 2.9, Baso % (Auto) 0.1, Gran # 4.01, Lymph # (Auto) 2.8, [place] # (Auto) 0.5, Eos # (Auto) 0.2, Baso # (Auto) 0.01 Vital Signs Temp Pulse Resp BP Pulse Ox 10/16/17 06:48 99.2 F 76 20 116/66 10/15/17 16:20 98 H 118/74 10/15/17 06:34 98.2 F 73 20 133/77 10/14/17 15:37 94 H 130/70 10/14/17 07:10 97.8 F 63 20 110/68 10/13/17 06:36 97.9 F 92 H 16 136/81 10/12/17 16:00 83 121/74 10/12/17 06:57 97.8 F 84 20 113/74 10/11/17 16:00 99 H 123/80 10/11/17 07:26 97.6 F 70 20 114/75 10/10/17 16:00 87 125/79 10/10/17 07:17 97 F L 71 20 103/55 L 10/10/17 03:28 98.3 F 75 20 131/87 100 10/10/17 02:09 98.1 F 72 18 120/68 99 10/10/17 01:01 76 16 122/72 99 10/09/17 22:28 98.7 F 85 20 120/70 98 DSM 5 Symptoms Update: Ben Grullon is a 22 yo male with a history of MDD and ADHD with one prior psych hospitalization who brought himself to the ED for help with thoughts of wanting to hurt himself as a response to increased stress. Patient was seen this morning next to the nursing station, patient presented with good personal hygiene, patient presented to be anxious saying that his mood is "little better, I think I am ready to go tomorrow,even though that I am anxious". patient reports that his mood is "slowly improving" Patient denied hearing voices, denied seeing things, denied paranoid ideations, patient does not appear to be psychotic. Patient asked for he is sleeping better. He denies SI and HI and is able to contract for safety. Patient tolerates medications well, no side effects observed or reported, aims 0 , no EPS. Impression: MDD by history r/o adjustment disorder r/o acute stress disorder r/o schizoaffective disorder Medication Change: No (increased Sonata last night) Medical Record Reviewed: Yes Mental Status Examination - Cognitive Function Orientation: Person, Place, Situation, Time Memory: Intact Attention: WNL Concentration: WNL Association: WNL Fund of Knowledge: WNL - Mood Mood: Depressed ("I feel better today"), Other - Affect Affect: Other (full, mildly anxious) - Speech Speech: Appropriate - Formal Thought Process Formal Thought Process: No Impairment - Suicidal Ideation Suicidal Ideation: No - Homicidal Ideation Homicidal Ideation: No Goal/Treatment Plan - Goal/Treatment Plan Need for Continued Stay: Remain at risks for inpatient hospitalization, Discharge may exacerbated symptoms Progress Toward Problem(s) and Goals/Treatment Plan: Wellbutrin 150 mg daily for depression and ADHD symptoms Sonata 10 mg qhs prn for insomnia Milieu and group therapy SW consult for discharge planning Patient was educated about risk/benefits and alternatives of medications, coping strategies (safety plan, suicide prevention), relapse prevention, importance of follow up with psychiatrist and therapist, stay away from drugs/ alcohol/smoking. Estimated Date of D/C: 10/18/17
[2017-10-18 07:01] VITALS: BP 127/74; PULSE 89; RESP 20; TEMP 97.2
--- NOTE | 2017-10-18 13:16 | PCM.PYCHDC ---
Mental Status Examination - Mental Status Examination Orientation: Person, Place, Situation, Time Memory: Intact Mood: Neutral Affect: Broad (And mood congruent) Attention: WNL Concentration: WNL Association: WNL Fund of Knowledge: WNL Formal Thought Process: No Impairment Description of patient's judgement and insight: Pt has improved insight into mental and medical illness, pt was compliant with medications and unit rules and regulations, pt was going to groups, was calm, cooperative, socially appropriate, no behavioral incidents, no agitation, no aggression. Psychotic Thoughts and Behaviors: Pt denied v/a/t hallucinations, denied paranoid ideations, pt does not appear to be psychotic, and thought process is goal directed. Suicidal Ideation: No Current Homicidal Ideation?: No Plan: pt adamantly denied thoughts of harming self or others denied intent or plan. Discharge Summary - Discharge Note Reason for Hospitalization: depression and SI Psychiatric History (includes Medical, Family, Personal Hx): medications, therapy Laboratory Data: 10/09/17 22:43 10/11/17 14:00 Lab Results 10/11/17 14:00: Sodium 142, Potassium 4.4, Chloride 102, Carbon Dioxide 27, Anion Gap 17, BUN 9, Creatinine 0.7 L, Est GFR ( Amer) > 60, Est GFR (Non -Af Amer) > 60, Random Glucose 95, Calcium 9.7, Total Bilirubin 0.3, AST 15 L D , ALT 23, Alkaline Phosphatase 59, Total Protein 7.7, Albumin 4.7, Globulin 3.0 , Albumin/Globulin Ratio 1.6 10/10/17 07:20: RPR Nonreactive 10/10/17 07:20: TSH 3rd Generation 1.52 10/10/17 07:20: Fasting Glucose 97, Triglycerides 65, Cholesterol 123 L, LDL Cholesterol Direct 70, HDL Cholesterol 35 10/10/17 02:25: Urine Opiates Screen Negative, Urine Methadone Screen Negative, Ur Barbiturates Screen Negative, Ur Phencyclidine Scrn Negative, Ur Amphetamines Screen Negative, U Benzodiazepines Scrn Negative, U Oth Cocaine Metabols Negative, U Cannabinoids Screen Negative 10/09/17 22:43: Alcohol, Quantitative < 10 10/09/17 22:43: Salicylates < 1 L, Acetaminophen < 10.0 L 10/09/17 22:43: Sodium 144, Potassium 3.4 L, Chloride 104, Carbon Dioxide 27, Anion Gap 16, BUN 13, Creatinine 0.7 L, Est GFR ( Amer) > 60, Est GFR ( Non-Af Amer) > 60, Random Glucose 118 H, Calcium 9.3, Total Bilirubin 0.4, AST 20, ALT 36, Alkaline Phosphatase 62, Total Protein 7.2, Albumin 4.3, Globulin 2.9, Albumin/Globulin Ratio 1.5 10/09/17 22:43: Urine Color Yellow, Urine Appearance Clear, Urine pH 6.0, Ur Specific [place] >= 1.030, Urine Protein Negative, Urine Glucose (UA) Negative, Urine Ketones 15 H, Urine Blood Negative, Urine Nitrate Negative, Urine Bilirubin Negative, Urine Urobilinogen 1.0 H, Ur Leukocyte Esterase Negative 10/09/17 22:43: WBC 7.5, RBC 4.53, Hgb 13.5 L, Hct 39.1 L, MCV 86.3, MCH 29.8, MCHC 34.5, RDW 13.5, Plt Count 235, MPV 9.5, Gran % 53.4, Lymph % (Auto) 36.8 H , [place] % (Auto) 6.8 H, Eos % (Auto) 2.9, Baso % (Auto) 0.1, Gran # 4.01, Lymph # (Auto) 2.8, [place] # (Auto) 0.5, Eos # (Auto) 0.2, Baso # (Auto) 0.01 Vital Signs Temp Pulse Resp BP Pulse Ox 10/18/17 06:59 97.2 F L 89 20 127/74 10/17/17 16:00 96 H 118/77 10/17/17 06:43 97.6 F 92 H 18 122/81 10/16/17 16:00 82 124/82 10/16/17 06:48 99.2 F 76 20 116/66 10/15/17 16:20 98 H 118/74 10/15/17 06:34 98.2 F 73 20 133/77 10/14/17 15:37 94 H 130/70 10/14/17 07:10 97.8 F 63 20 110/68 10/13/17 06:36 97.9 F 92 H 16 136/81 10/12/17 16:00 83 121/74 07/26/18 06:57 97.8 F 84 20 113/74 10/11/17 16:00 99 H 123/80 10/11/17 07:26 97.6 F 70 20 114/75 10/10/17 16:00 87 125/79 10/10/17 07:17 97 F L 71 20 103/55 L 10/10/17 03:28 98.3 F 75 20 131/87 100 10/10/17 02:09 98.1 F 72 18 120/68 99 10/10/17 01:01 76 16 122/72 99 10/09/17 22:28 98.7 F 85 20 120/70 98 Consultations:: List each consultation separately and include: 1. Reason for request. 2. Findings. 3. Follow-up Consultations: pt was seen by medical team in ED. Summary of Hospital Course include:: 1. Description of specific treatment plan utilized for patients during their course of treatmen. 2. Summarize the time- course for resolution of acute symptoms and/or regressed behaviors. 3. Describe issues identified and worked on during hospitalization. 4. Describe medication utilized. 5. Describe medical problems identified and treated. 6. Reassessment of suicide risk Summary of Hospital Course: Ben Grullon is a 22 yo male with a history of MDD and ADHD with one prior psych hospitalization who brought himself to the ED for help with thoughts of wanting to hurt himself as a response to increased stress. The patient was last hospitalized at [facility] for depression and SI in April 2017. At this time, he was homeless and unemployed. Since discharge, the patient has had stable housing by renting a room from a family friend in [place]. 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 However, the patient failed to follow-up with outpatient psychiatric care and denies taking any current medications. The patient reports that his job and life were going very well up until he started taking care of a difficult patient approximately 2 weeks ago. Since this time, the patient reports feeling increased anxiety and stress. He also endorses poor sleep. For the past 2 days, the patient was thinking about hurting himself, without a clear goal. He also endorse auditory hallucinations 2 days ago of 2 people talking but he cannot make out what they are saying. Yesterday, he saw a bus and considered jumping in front of it. He was able to stop himself and bring himself in to the hospital for help. during the initial assessment pt has acceptable grooming/hygiene and is dressed in casual clothing. He has dyed blonde and blue hair. He is calm and cooperative. He has good eye contact. His affect is flat but reactive at times- he smiles intermittently throughout the interview. He denies most symptoms of depression- he has good energy, concentration, and appetite. He has had good sleep up until 2 weeks ago when the stress began. He denies feeling hopeless or helpless. He is future-oriented and discusses going on vacation to the [place] next week. Patient denies any symptoms of migue, including lack of need for sleep, grandiosity, pressured speech. He endorses auditory hallucinations once in a blue banks, most recently 2 days ago. He is able to describe them as 2 voices, but he cannot make out what they say. he denies visual hallucinations and paranoia. He endorses some anxiety, mostly related to his job and not significantly more than others. He denies panic symptoms. He denies hx of trauma or abuse. The patient only has one prior psychiatric hospitalization, and this was at [facility] in April 2017. At this time, the patient was depressed and suicidal. He denies any suicidal attempts in his life. He was discharged on Wellbutrin but failed to follow-up as an outpatient. He states this is due to acquiring a full- time job, but now he is able to make his schedule so that he can attend outpatient appointments. He would like to start back on medications as well as learn coping skills for dealing with stress. Psych hx: Dx with MDD this year, ADHD as child 1 inpatient hospitalization 04/2017 No outpatient care PMH: none PCP- Dr. Moura FH: grandmother- T2DM mother- schizophrenia sister- schizophrenia, 1 SA via OD on ibuprofen no children SH: Rents room from family friend in [facility]) Works full-time as a licensed home health aide HS diploma No children No relationship, never Denies alcohol, tobacco, and illicit drug use pt was stabilized on the following meds: Wellbutrin 150 mg daily for depression and ADHD symptoms Sonata 10 mg qhs prn for insomnia Patient tolerated medications well, no side effects observed or reported, aims 0 , no EPS. Over the course of this hospitalization pt was attending groups, pt also had medication management, had therapeutic milieu. Overall pt improved significantly, pt's affect became brighter, pt was less depressed, has realistic future oriented plans, pt also does not appear to be psychotic, or anxious, pt was socially appropriate, no behavioral issues, pts insight improved as well and soon pt deemed to be ready for discharge. At the time of the discharge pt denied been depressed, denied thoughts of harming self or others, denied psychotic symptoms, and pt does not appeared to be psychotic, denied been anxious, pt is not in imminent danger to self or others, will be following up at [facility], information about follow up appointment, time and address provided to the pt, it is patient responsibility to follow up with outpatient clinic, PMD as well as specialists (see SW note for more detailed information). In case pt will need to obtain results of studies pending at discharge pt was provided with contact information of Psychiatric Inpatient unit [phone] as well as Medical Record Department [phone]. Counseling about smoking and alcohol cessation provided pt was provided with prescriptions for all of medications (please see medication reconciliation form) Pt was educated about safety plan in case of worsening of symptoms or in case of suicidal or homicidal ideation call 911 or go to the nearest ER, also was educated to take meds as prescribed and stay away from drugs, pt verbalized understanding. - Diagnosis (1) Major depressive disorder Status: Chronic Priority: Medium - Final Diagnosis (DSM 5) Condition upon Discharge: STABLE Disposition: HOME/ ROUTINE Follow-up Treatment Plan: At the time of the discharge pt denied been depressed, denied thoughts of harming self or others, denied psychotic symptoms, and pt does not appeared to be psychotic, denied been anxious, pt is not in imminent danger to self or others, will be following up at [facility], information about follow up appointment, time and address provided to the pt, it is patient responsibility to follow up with outpatient clinic, PMD as well as specialists (see SW note for more detailed information). In case pt will need to obtain results of studies pending at discharge pt was provided with contact information of Psychiatric Inpatient unit [phone] as well as Medical Record Department [phone]. Counseling about smoking and alcohol cessation provided pt was provided with prescriptions for all of medications (please see medication reconciliation form) Pt was educated about safety plan in case of worsening of symptoms or in case of suicidal or homicidal ideation call 911 or go to the nearest ER, also was educated to take meds as prescribed and stay away from drugs, pt verbalized understanding. Prescriptions/Medication Reconciliation: buPROPion XL [Wellbutrin] 150 mg PO DAILY #14 t24 Zaleplon [Sonata] 10 mg PO HS #14 capsule - Smoking Cessation Smoking Cessation Medication prescribed: No Reason for not providing: pt does not want
== END 2017-10-18 11:36 | disposition home or self-care (01) | DRG 426 ==
LOC: ED 22:12 → ERH 10-10 01:31 → PSYC 10-10 02:44
PROVIDERS: ADMIT Psychiatry & Neurology Psychiatry; ATTEND Psychiatry & Neurology Psychiatry
DX: F32.9 Major depressive disorder, single episode, unspecified (principal); F41.9 Anxiety disorder, unspecified; F90.9 Attention-deficit hyperactivity disorder, unspecified type; Z81.8 Family history of other mental and behavioral disorders; Z83.3 Family history of diabetes mellitus

== ENCOUNTER 2017-10-21 21:01 | Emergency (ER) | payer MEDICAID ==
[2017-10-21 21:01] VITALS: BMI 25.9
--- NOTE | 2017-10-21 21:21 | ED PDOC ---
Arrival/HPI - General Chief Complaint: Chest Pain Time Seen by Provider: 10/21/17 21:03 Historian: Patient - History of Present Illness Time/Duration: Other (One day) Symptom Onset: Gradual Symptom Course: Unchanged Severity Level: Mild Activities at Onset: Rest Associated Symptoms (Text): 10/21/17 21:18 Patient complains of chest pain and shortness of breath beginning yesterday. It is made worse by palpation. No cough congestion or URI. No fever or chills. No injury or trauma. No abdominal pain nausea or vomiting. Patient was discharged from the hospital psychiatric floor 3 days ago. No dizziness or lightheadedness. He does not appear ill or uncomfortable. He believes it is related to the heat. He is a never smoker. Past Medical History - Tetanus Immunization Tetanus Immunization: Unknown - Cardiac Hx Cardiac Disorders: No - Pulmonary Hx Respiratory Disorders: No - Neurological Hx Neurological Disorder: No - HEENT Hx HEENT Disorder: No - Renal Hx Renal Disorder: No - Endocrine/Metabolic Hx Endocrine Disorders: No - Hematological/Oncological Hx Blood Disorders: No - Integumentary Hx Dermatological Disorder: No - Musculoskeletal/Rheumatological Hx Musculoskeletal Disorders: No - Gastrointestinal Hx Gastrointestinal Disorders: No - Genitourinary/Gynecological Hx Genitourinary Disorders: No - Psychiatric Hx Psychophysiologic Disorder: Yes Hx Depression: Yes Hx Substance Use: No Other/Comment: ADHD Family/Social History - Physician Review Nursing Documentation Reviewed: Yes Family/Social History: Unknown Family HX Smoking Status: Never Smoked Hx Alcohol Use: No Hx Substance Use: No Allergies/Home Meds Allergies/Adverse Reactions: Allergies No Known Allergies Allergy (Verified 10/21/17 21:06) Review of Systems - Physician Review All systems were reviewed & negative as marked: Yes - Review of Systems Constitutional: Normal Respiratory: SOB. absent: Cough, Sputum, Wheezing Cardiovascular: Chest Pain. absent: Palpitations, Syncope Gastrointestinal: absent: Abdominal Pain, Nausea, Vomiting, Anorexia Neurological: absent: Headache, Dizziness, Focal Weakness, Gait Changes Psychiatric: absent: Anxiety, Depression, Suicidal Ideation Physical Exam Vital Signs Temp Pulse Resp BP Pulse Ox 10/21/17 21:29 98.2 F 96 H 16 119/67 98 Temperature: Afebrile Blood Pressure: Normal Pulse: Regular Respiratory Rate: Normal Appearance: Positive for: Well-Appearing, Non-Toxic, Comfortable Pain Distress: None Mental Status: Positive for: Alert and Oriented X 3 - Systems Exam Head: Present: Atraumatic, Normocephalic Pupils: Present: PERRL Extroacular Muscles: Present: EOMI Mouth: Present: Moist Mucous Membranes Pharnyx: No: ERYTHEMA, EXUDATE, TONSILS ENLARGED Neck: Present: Normal Range of Motion. No: MIDLINE TENDERNESS, Paraspinal Tenderness Respiratory/Chest: Present: Clear to Auscultation, Good Air Exchange, Tender to Palpation (Tenderness which does reproduce the pain). No: Respiratory Distress , Accessory Muscle Use, Wheezes, Decreased Breath Sounds, Rales, Retracting, Rhonchi, Tachypneic Cardiovascular: Present: Regular Rate and Rhythm, Normal S1, S2. No: Murmurs Abdomen: No: Tenderness, Distention, Peritoneal Signs, Rebound, Guarding Upper Extremity: Present: Normal Inspection. No: Cyanosis, Edema Lower Extremity: Present: Normal Inspection. No: Edema Neurological: Present: GCS=15, CN II-XII Intact, Speech Normal, Motor Func Grossly Intact, Gait Normal Skin: Present: Warm, Dry, Normal Color. No: Rashes Psychiatric: Present: Alert, Oriented x 3, Normal Insight, Normal Concentration Medical Decision Making ED Course and Treatment: 10/21/17 21:20 EKG shows normal sinus rhythm rate approximately [address] or T-wave changes 10/21/17 21:21 Pulse oximetry is 97% on room air. 10/21/17 22:05 Symptoms improved post Toradol. Discharged home to follow-up with PMD. Follow up in ER as needed. - RAD Interpretation Radiology Orders: 10/21/17 21:09 CHEST TWO VIEWS (PA/LAT) [RAD] Stat Chest 2 view shows no infiltrate effusion cardiomegaly or pneumothorax. Lead Software Test Engineer: ED Physician - Medication Orders Current Medication Orders: Discontinued Medications Ketorolac Tromethamine (Toradol) 30 mg IM ONCE ONE Stop: 10/21/17 21:22 Last Admin: 10/21/17 21:36 Dose: 30 mg MAR Pain Assessment Document 10/21/17 21:36 IT (Rec: 10/21/17 21:36 IT [id number]) Pain Reassessment Is this a pain reassessment? No Sleep Is patient sleeping during reassessment? No Presence of Pain Presence of Pain Yes IM Administration Charges Document 10/21/17 21:36 IT (Rec: 10/21/17 21:36 IT [id number]) Injection Site MAR Injection Site Left Deltoid Charges for Administration # of IM Administrations 1 Disposition/Present on Arrival - Present on Arrival Any Indicators Present on Arrival: No History of DVT/PE: No History of Uncontrolled Diabetes: No Urinary Catheter: No History of Decub. Ulcer: No History Surgical Site Infection Following: None - Disposition Have Diagnosis and Disposition been Completed?: Yes Diagnosis: Chest wall pain Disposition: HOME/ ROUTINE Disposition Time: 22:05 Patient Plan: Discharge Condition: IMPROVED Discharge Instructions (ExitCare): Chest Pain (ED), Costochondritis (DC) Additional Instructions: Follow-up with PMD. Follow up in ER as needed. Prescriptions: Naproxen [Naprosyn] 500 mg PO BID #14 tab Forms: [employer] (Filipino)
[2017-10-21 21:29] VITALS: RESP 16; TEMP 98.2; O2SAT 98
[2017-10-21 22:23] VITALS: BP 125/82; PULSE 89
--- NOTE | 2017-10-22 08:43 | RAD ---
Date of service: 10/21/2017 HISTORY: cp COMPARISON: No prior. TECHNIQUE: Chest PA and lateral FINDINGS: LUNGS: No active pulmonary disease. PLEURA: No significant pleural effusion identified. No pneumothorax apparent. CARDIOVASCULAR: Normal. OSSEOUS STRUCTURES: No significant abnormalities. VISUALIZED UPPER ABDOMEN: Normal. OTHER FINDINGS: None. IMPRESSION: No active disease.
--- NOTE | 2017-10-23 06:57 | CARD ---
APPROVED REPORT Date of service: 10/21/2017 EKG Measurement Heart [id number] <Conclusion> Normal sinus rhythm Normal ECG
== END 2017-10-21 22:24 | disposition home or self-care (01) ==
LOC: ED 21:01
DX: R07.89 Other chest pain (principal)
CPT/HCPCS: 71046; 93005; 96372; 99283; J1885

== ENCOUNTER 2017-11-02 16:21 | Emergency (ER) | payer MEDICAID ==
[2017-11-02 17:22] VITALS: BMI 25.3
[2017-11-02 17:26] VITALS: TEMP 99.1
[2017-11-02] MEDS ORDERED: Sodium Chloride 0.9% 1,000 ML IV STA (17:56)
--- NOTE | 2017-11-02 17:57 | ED PDOC ---
Arrival/HPI - General Chief Complaint: Weakness/Neurological Deficit Time Seen by Provider: 11/02/17 16:24 Historian: Patient - History of Present Illness Narrative History of Present Illness (Text): 11/02/17 17:57 A 22 year old male, whose past medical history includes depression, suicidal ideation, and anxiety, presents to the emergency department complaining of unwitnessed pre-syncopal episode. Patient reports he was inside the house all day with no air-conditioning. After stepping outside to go out, he began experiencing dizziness and felt he was going to faint. He states never experiencing these symptoms in the past and became concerned. Patient did not call for an ambulance and instead walked to the emergency department. While on his way here, states feeling lightheaded and faint again while crossing the street to the hospital. Mentions drinking 2 cups of water today, last cup was approximately 1 hour ago. Patient denies any dark/bloody stools, fall/head trauma, or any other complaints. Also, patient denies any history of smoking/ EtOH consumption. No PMD 11/02/17 23:56 Past Medical History - Provider Review Nursing Documentation Reviewed: Yes - Tetanus Immunization Tetanus Immunization: Unknown - Cardiac Hx Cardiac Disorders: No - Pulmonary Hx Respiratory Disorders: No - Neurological Hx Neurological Disorder: No - HEENT Hx HEENT Disorder: No - Renal Hx Renal Disorder: No - Endocrine/Metabolic Hx Endocrine Disorders: No - Hematological/Oncological Hx Blood Disorders: No - Integumentary Hx Dermatological Disorder: No - Musculoskeletal/Rheumatological Hx Musculoskeletal Disorders: No - Gastrointestinal Hx Gastrointestinal Disorders: No - Genitourinary/Gynecological Hx Genitourinary Disorders: No - Psychiatric Hx Psychophysiologic Disorder: Yes Hx Depression: Yes Hx Substance Use: No Other/Comment: ADHD Family/Social History - Physician Review Nursing Documentation Reviewed: Yes Family/Social History: No Known Family HX Smoking Status: Never Smoked Hx Alcohol Use: No Hx Substance Use: No Allergies/Home Meds Allergies/Adverse Reactions: Allergies No Known Allergies Allergy (Verified 11/02/17 17:26) Home Medications: Home Meds Medication Instructions Recorded Confirmed Zaleplon [Sonata] 5 mg PO HS 11/02/17 11/02/17 Review of Systems - Physician Review All systems were reviewed & negative as marked: Yes - Review of Systems Cardiovascular: absent: Syncope (pre-syncopal, no fall, no head trauma.) Gastrointestinal: Nausea. absent: Stool Changes (no dark/bloody stools.), Vomiting Neurological: Headache, Dizziness (prior to episode) Physical Exam Vital Signs Reviewed: Yes Vital Signs Temp Pulse Resp BP Pulse Ox 11/02/17 19:00 89 16 116/86 98 11/02/17 17:22 99.1 F 113 H 20 125/73 97 Temperature: Afebrile Blood Pressure: Normal Pulse: Regular Respiratory Rate: Normal Appearance: Positive for: Well-Appearing, Non-Toxic, Comfortable Pain Distress: None Mental Status: Positive for: Alert and Oriented X 3 - Systems Exam Head: Present: Atraumatic, Normocephalic Pupils: Present: PERRL Extroacular Muscles: Present: EOMI Conjunctiva: Present: Normal Mouth: Present: Moist Mucous Membranes Neck: Present: Normal Range of Motion. No: Meningeal Signs Respiratory/Chest: Present: Clear to Auscultation, Good Air Exchange. No: Respiratory Distress, Accessory Muscle Use Cardiovascular: Present: Regular Rate and Rhythm, Normal S1, S2. No: Murmurs Abdomen: No: Tenderness, Distention, Peritoneal Signs Back: Present: Normal Inspection Upper Extremity: Present: Normal Inspection. No: Cyanosis, Edema Lower Extremity: Present: Normal Inspection. No: Edema Neurological: Present: GCS=15, CN II-XII Intact, Speech Normal, Motor Func Grossly Intact, Normal Sensory Function, Normal Cerebellar Funct, Norm Deep Tendon Reflexes, Gait Normal, Memory Normal Skin: Present: Warm, Dry, Normal Color. No: Rashes Psychiatric: Present: Alert, Oriented x 3, Normal Insight, Normal Concentration , Normal Affect, Normal Mood. No: Anxious, Agitated, Depressed Mood, Suicidal Ideation, Homicidal Ideation, Delusional, Hallucinations, Intoxicated, Lethargic , Other Medical Decision Making ED Course and Treatment: 11/02/17 18:00 Impression: 22 year old male with pre-syncopal episode and dizziness. No acute findings on physical examination. No SI or HI. No active plan. Plan: -- EKG -- IV Fluids -- Labs -- Reassess and disposition Progress Notes: labs unremarkable. EKG unremarkable: 93, NSR, no stemi. no brugadas Spoke to pt regarding normal findings of ekg and labs and pt now states that although his symptoms have fully resolved with NS fluids he is now feeling anxious and is feeling down. He has no plan for SI or HI. LD burton. Seen By LD Jarrett: clear for d/c home. Spoke to pt once again: he denies any SI or HI at this time, and states that his statements to RN were because he wanted to stay and get food and states that he wanted to go home after having eaten. his symptoms have fully resolved and his exam remains stable. Normal repeat neuro exam Clear for d/c home. 11/03/17 00:07 - Lab Interpretations Lab Results: 11/02/17 19:13 11/02/17 19:13 Lab Results 11/02/17 20:30: Alcohol, Quantitative < 10 11/02/17 20:30: Salicylates < 1 L, Acetaminophen < 10.0 L 11/02/17 19:13: Sodium 146, Potassium 3.8, Chloride 103, Carbon Dioxide 27, Anion Gap 20, BUN 14, Creatinine 0.9, Est GFR ( Amer) > 60, Est GFR (Non- Af Amer) > 60, Random Glucose 81, Calcium 10.0, Magnesium 2.2, Total Bilirubin 0.4, AST 19, ALT 34, Alkaline Phosphatase 85, Total Protein 8.3, Albumin 4.9 H, Globulin 3.4, Albumin/Globulin Ratio 1.5 11/02/17 19:13: WBC 8.6, RBC 5.04, Hgb 15.2, Hct 44.0, MCV 87.3, MCH 30.2, MCHC 34.5, RDW 14.2, Plt Count 305, MPV 9.6, Gran % 66.8, Lymph % (Auto) 18.7 L, Edwards % (Auto) 13.5 H, Eos % (Auto) 0.9 L, Baso % (Auto) 0.1, Gran # 5.74, Lymph # (Auto) 1.6, Edwards # (Auto) 1.2 H, Eos # (Auto) 0.1, Baso # (Auto) 0.01 - RAD Interpretation Radiology Orders: 11/02/17 20:27 HEAD W/O CONTRAST [CT] Stat - Medication Orders Current Medication Orders: Discontinued Medications Sodium Chloride (Sodium Chloride 0.9%) 1,000 mls @ 500 mls/hr IV .Q2H STA Stop: 11/02/17 19:55 Last Admin: 11/02/17 19:11 Dose: 500 mls/hr eMAR Start Stop Document 11/02/17 19:11 (Rec: 11/02/17 19:11 [email or web address]) Intravenous Solution Start Date 11/02/17 Start Time 19:11 - Scribe Statement The provider has reviewed the documentation as recorded by the Tiffanie Mercado Provider Scribe Attestation: All medical record entries made by the Scribe were at my direction and personally dictated by me. I have reviewed the chart and agree that the record accurately reflects my personal performance of the history, physical exam, medical decision making, and the department course for this patient. I have also personally directed, reviewed, and agree with the discharge instructions and disposition. Disposition/Present on Arrival - Present on Arrival Any Indicators Present on Arrival: No History of DVT/PE: No History of Uncontrolled Diabetes: No Urinary Catheter: No History of Decub. Ulcer: No History Surgical Site Infection Following: None - Disposition Have Diagnosis and Disposition been Completed?: Yes Diagnosis: Major depressive disorder Disposition: HOME/ ROUTINE Disposition Time: 22:15 Patient Problems: Current Active Problems Problem Status Onset Major depressive disorder Chronic Condition: GOOD Discharge Instructions (ExitCare): Depression, Depression, Adult (DC) Additional Instructions: GABRIELE BALBUENA, thank you for letting us take care of you today. Your provider was Franko Delaney and you were treated for WEAK. The emergency medical care you received today was directed at your acute symptoms. If you were prescribed any medication, please fill it and take as directed. It may take several days for your symptoms to resolve. Return to the Emergency Department if your symptoms worsen, do not improve, or if you have any other problems. Please contact your doctor or call one of the physicians/clinics you have been referred to that are listed on the Patient Visit Information form that is included in your discharge packet. Bring any paperwork you were given at discharge with you along with any medications you are taking to your follow up visit. Our treatment cannot replace ongoing medical care by a primary care provider outside of the emergency department. Thank you for allowing the [email or web address] team to be part of your care today. If you had an X-Ray or CT scan: A Radiologist will review the ED reading if any change in treatment is needed we will contact you. If you had a blood, urine, or wound culture: It will take several days for the results, if any change in treatment is needed we will contact you. If you had an STI test: It will take 48 hours for the results. Please call after 1 week if you have not heard back. Referrals: [facility] [Outside] - Follow up with primary [facility] [Outside] - Follow up with primary Forms: [employer] (Kyrgyz)
[2017-11-02 19:26] LABS: BASO # 0.01 K/mm3 (0.0-2.0); BASO % 0.1 % (0.0-3.0); EOS # 0.1 (0.0-0.7); EOS % 0.9 % (1.5-5.0); GRAN # 5.74 (1.4-6.5); GRAN % 66.8 % (50.0-68.0); HEMOGLOBIN 15.2 g/dL (14.0-18.0); LYMPH # 1.6 (1.2-3.4); LYMPH % 18.7 % (22.0-35.0); MEAN CELL VOLUME 87.3 fl (80.0-105.0); MEAN CORPUSCULAR HEMOGLOBIN 30.2 pg (25.0-35.0); MEAN CORPUSCULAR HGB CONC 34.5 g/dl (31.0-37.0); MEAN PLATELET VOLUME 9.6 fl (7.0-11.0); MONO # 1.2 (0.1-0.6); MONO % 13.5 % (1.0-6.0); RBC 5.04 10^6/uL (3.5-6.1); RED CELL DISTRIBUTION WIDTH 14.2 % (11.5-14.5); WHITE BLOOD COUNT 8.6 10^3/ul (4.5-11.0)
[2017-11-02 19:33] LABS: ALB/GLOB RATIO 1.5 (1.1-1.8); ALBUMIN 4.9 g/dL (3.0-4.8); ALT/SGPT 34 U/L (7-56); AST/SGOT 19 U/L (17-59); BLOOD UREA NITROGEN 14 mg/dL (7-21); GFR AFRICAN-AMERICAN > 60; GFR NON-AFRICAN AMERICAN > 60
[2017-11-02 21:14] LABS: ACETAMINOPHEN < 10.0 ug/ml (10.0-20.0); SALICYLATE < 1 mg/dL (2.0-20.0)
[2017-11-03 01:12] VITALS: BP 117/84; PULSE 85; RESP 18; O2SAT 99
--- NOTE | 2017-11-03 08:23 | CARD ---
APPROVED REPORT Date of service: 11/02/2017 EKG Measurement Heart [id number] <Conclusion> Normal sinus rhythm Normal ECG
== END 2017-11-02 22:50 | disposition home or self-care (01) ==
LOC: ED 16:21
DX: F32.9 Major depressive disorder, single episode, unspecified (principal)
CPT/HCPCS: 80053; 80320; 80329; 83735; 85025; 90791; 93005; 99283; J7030

== ENCOUNTER 2018-07-23 04:37 | Emergency (ER) | payer MEDICAID ==
[2018-07-23 04:37] VITALS: BMI 25.3
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
[2018-07-23 04:58] VITALS: RESP 16; TEMP 97.8
[2018-07-23 05:53] VITALS: BP 110/80; PULSE 84; O2SAT 100
== END 2018-07-23 05:45 | disposition home or self-care (01) ==
LOC: ED 04:37
DX: S76.919A Strain of unspecified muscles, fascia and tendons at thigh level, unspecified thigh, initial encounter (principal); X58.XXXA Exposure to other specified factors, initial encounter

== ENCOUNTER 2018-07-30 05:42 | Inpatient (IN) | payer MEDICAID ==
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
[2018-07-30 05:50] VITALS: BMI 25.0
[2018-07-30 06:46] LABS: EOS # 0.3 (0.0-0.7); EOS % 3.9 % (1.5-5.0); HEMOGLOBIN 13.5 g/dL (14.0-18.0); LYMPH # 2.6 (1.2-3.4); LYMPH % 31.5 % (22.0-35.0); MEAN CELL VOLUME 87.2 fl (80.0-105.0); MEAN CORPUSCULAR HEMOGLOBIN 28.9 pg (25.0-35.0); MEAN CORPUSCULAR HGB CONC 33.2 g/dl (31.0-37.0); MEAN PLATELET VOLUME 9.9 fl (7.0-11.0); MONO % 11.7 % (1.0-6.0); RBC 4.67 10^6/uL (3.5-6.1); RED CELL DISTRIBUTION WIDTH 14.3 % (11.5-14.5); WHITE BLOOD COUNT 8.2 10^3/uL (4.5-11.0)
[2018-07-30 06:50] LABS: ACETAMINOPHEN < 10.0 ug/ml (10.0-20.0); ALB/GLOB RATIO 1.4 (1.1-1.8); ALBUMIN 4.2 g/dL (3.0-4.8); ALT/SGPT 16 U/L (7-56); AST/SGOT 20 U/L (17-59); BLOOD UREA NITROGEN 10 mg/dL (7-21); CALCIUM 8.6 mg/dL (8.4-10.5); GFR NON-AFRICAN AMERICAN > 60; SALICYLATE < 1 mg/dL (2.0-20.0)
[2018-07-30 07:01] LABS: URINE BILIRUBIN NEGATIVE (NEGATIVE); URINE BLOOD NEGATIVE (NEGATIVE); URINE GLUCOSE (UA) NEGATIVE (NEGATIVE); URINE LEUKOCYTE ESTERASE SMALL Leu/uL (NEGATIVE); URINE PROTEIN TRACE mg/dL (<30 mg/dL)
[2018-07-30 07:02] LABS: URINE APPEARANCE CLEAR (CLEAR); URINE COLOR YELLOW (YELLOW)
[2018-07-30 07:04] LABS: URINE BACTERIA SMALL /hpf; URINE EPITHELIAL CELLS 0 - 2 /hpf (0-5); URINE RBC 0 - 2 /hpf (0-2); URINE WBC TNTC /hpf (0-6)
[2018-07-30 07:13] VITALS: O2SAT 100
[2018-07-30 07:34] LABS: BARBITURATES, UR NEGATIVE (NEGATIVE); BENZODIAZEPINES, UR NEGATIVE (NEGATIVE); OPIATES, UR NEGATIVE (NEGATIVE); PHENCYCLIDINE, UR NEGATIVE (NEGATIVE)
--- NOTE | 2018-07-30 08:16 | ED PDOC ---
Physical Exam Vital Signs Temp Pulse Resp BP Pulse Ox 07/30/18 07:13 97.8 F 78 18 117/78 100 07/30/18 05:59 97.8 F 74 18 121/72 98 Medical Decision Making ED Course and Treatment: 07/30/18 08:[address] Dahl, (Psychiatry) for major depressive episode. Spoke to LD Corbin. Patient is medically cleared for psych admission. Patient has no urinary symptoms. UA positivie for LE, WBCs and bacteria. Will treat with Kelflex and advise to follow up blood cultures. - Lab Interpretations Lab Results: Total Bilirubin 0.3 mg/dL (0.2-1.3) 07/30/18 06:19 AST 20 U/L (17-59) 07/30/18 06:19 ALT 16 U/L (7-56) 07/30/18 06:19 Alkaline Phosphatase 64 U/L (38-126) 07/30/18 06:19 Total Protein 7.1 g/dL (5.8-8.3) 07/30/18 06:19 Albumin 4.2 g/dL (3.0-4.8) 07/30/18 06:19 Globulin 2.9 gm/dL 07/30/18 06:19 Albumin/Globulin Ratio 1.4 (1.1-1.8) 07/30/18 06:19 Urine Color Yellow (YELLOW) 07/30/18 06:41 Urine Appearance Clear (CLEAR) 07/30/18 06:41 Urine pH 7.0 (4.7-8.0) 07/30/18 06:41 Ur Specific Anderson 1.020 (1.005-1.035) 07/30/18 06:41 Urine Protein Trace mg/dL (<30 mg/dL) H 07/30/18 06:41 Urine Glucose (UA) Negative mg/dL (NEGATIVE) 07/30/18 06:41 Urine Ketones Negative mg/dL (NEGATIVE) 07/30/18 06:41 Urine Blood Negative (NEGATIVE) 07/30/18 06:41 Urine Nitrate Negative (NEGATIVE) 07/30/18 06:41 Urine Bilirubin Negative (NEGATIVE) 07/30/18 06:41 Urine Urobilinogen 1.0 E.U./dL (<1 E.U./dL) H 07/30/18 06:41 Ur Leukocyte Esterase Small Jani/uL (NEGATIVE) H 07/30/18 06:41 Urine RBC 0 - 2 /hpf (0-2) 07/30/18 06:41 Urine WBC Tntc /hpf (0-6) H 07/30/18 06:41 Ur Epithelial Cells 0 - 2 /hpf (0-5) 07/30/18 06:41 Urine Bacteria Small /hpf (NONE) 07/30/18 06:41 - RAD Interpretation Radiology Orders: 07/30/18 05:58 CHEST PORTABLE [RAD] Stat - Scribe Statement The provider has reviewed the documentation as recorded by the Scribe Titi Mayo All medical record entries made by the Scribe were at my direction and personally dictated by me. I have reviewed the chart and agree that the record accurately reflects my personal performance of the history, physical exam, medical decision making, and the department course for this patient. I have also personally directed, reviewed, and agree with the discharge instructions and disposition. Disposition/Present on Arrival - Present on Arrival Any Indicators Present on Arrival: No History of DVT/PE: No History of Uncontrolled Diabetes: No Urinary Catheter: No History of Decub. Ulcer: No History Surgical Site Infection Following: None - Disposition Have Diagnosis and Disposition been Completed?: Yes Diagnosis: Suicidal ideation, Major depressive disorder, UTI (urinary tract infection) Disposition: HOSPITALIZED Disposition Time: 08:13 Patient Plan: Admission Patient Problems: Current Active Problems Problem Status Onset Suicidal ideation Acute Major depressive disorder Chronic Condition: FAIR Forms: [employer] (Afghan)
--- NOTE | 2018-07-30 10:27 | RAD ---
Date of service: 07/30/2018 HISTORY: med clearance COMPARISON: 10/21/2017 TECHNIQUE: 1 view obtained. FINDINGS: LUNGS: No active pulmonary disease. PLEURA: No significant pleural effusion identified, no pneumothorax apparent. CARDIOVASCULAR: No aortic atherosclerotic calcification present. Normal cardiac size. No pulmonary vascular congestion. OSSEOUS STRUCTURES: No significant abnormalities. VISUALIZED UPPER ABDOMEN: Normal. OTHER FINDINGS: None. IMPRESSION: No active disease.
--- NOTE | 2018-07-30 11:06 | PCM.BM ---
<Roderick Edmonds - Last Filed: 07/30/18 11:02> Treatment Plan Problems - Problems identified on initial assessmt depression Date Initiated: 07/30/18 Time Initiated: 09:00 Assessment reference: NA Status: Active Priority: 1 Comment: Hopelessness/helplessness,Suicidal ideation. Ineffective coping skills Date Initiated: 07/30/18 Time Initiated: 09:00 Assessment reference: NA Status: Active Priority: 2 Comment: Inability to cope with living situation. Altered sleep pattern Date Initiated: 07/30/18 Time Initiated: 09:00 Assessment reference: NA Status: Active Priority: 3 Comment: poor sleep 2 to 3 hours at night. Treatment assets and liabiliti Patient Assests: adapts well, cooperative, educated, insightful, motivated, self-reliant, ADL independent, physically healthy, negotiates basic needs - Milieu Protocol Maintain good personal hygiene: every other day Encourage regular showers, every other day Remind patient to perform daily oral care, every other day Assist patient to perform ADL's Conduct patient checks and document Observation sheet: Q15 minutes Maintain personal safety: every shift Educate patient to report safety concerns to staff, every shift Monitor environment for contraband/sharps Medication safety: Monitor for expected outcome, potential side effects: every s hift, Assess barriers to learning: every shift, Assess readiness for medication education: every shift Discharge/Continuing Care - Education Needs Education Needs: Patient Medication, Patient Diagnosis/Disease Process, Patient Coping Skills, Patient Anger Management skills, Patient Placement options, Patient Community resources, Patient Activities of Daily Living, Patient Nutrition, Patient Uses of Medical Equipment, Patient Health Practices/Safety, Patient Personal Hygiene/Grooming, Patient Aftercare Safety Plan - Discharge Discharge Criteria: Tolerates medication w/o severe side effects, Free of Suicidal thoughts, Normal sleep pattern, No longer exhibiting s/s of withdrawal, Reduction of target symptoms Discharge to:: Home <Diana Valladares - Last Filed: 07/30/18 11:55> Family Contact Family involvement: Famliy/SO not involved <Kimberlee Dahl - Last Filed: 07/30/18 16:44> - Diagnosis (1) Schizoaffective disorder, depressive type Status: Acute Interventions: 07/30/18 16:44 Psychoeducation/psychotherapy Psychopharmacology/adjustment of medications as needed/ monitoring possible side effects Evaluate pt on daily basis Compliance with medications and follow up appointments Long acting medication if pt is noncompliant with pill form Suicide and homicide risk assessment and prevention, coping strategies, safety plan Relapse prevention Reduction of symptoms Improve functional status Possible assertive community treatment Cognitive behavioral therapy Family involvement Possible social skill training as outpatient
[2018-07-30] MEDS ORDERED: Magnesium Hydroxide Susp 30 ml UD PO PRN (13:22)
[2018-07-30] MEDS ORDERED: Alum-Mag Hydrox-Simethicone Susp (30 mL) PO PRN (13:22)
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
[2018-07-30] MEDS: Divalproex 500 mg DR(BID formulation) PO SCH (16:59)
--- NOTE | 2018-07-30 17:39 | CARD ---
APPROVED REPORT Date of service: 07/30/2018 EKG Measurement Heart [id number] <Conclusion> Normal sinus rhythm Normal ECG
[2018-07-31 07:59] LABS: GLUCOSE,FASTING 87 mg/dL (65-110); HDL CHOLESTEROL 42 mg/dL (29-60)
[2018-07-31 08:10] LABS: LDL CHOLESTEROL 115 mg/dL (0-129)
[2018-07-31 08:20] LABS: FREE T4 1.27 ng/dL (0.78-2.19)
[2018-07-31] MEDS: Divalproex 500 mg DR(BID formulation) PO SCH ×2 (09:57→17:31)
--- NOTE | 2018-07-31 14:43 | PCM.PYCHPN ---
Psychiatric Progress Note - Psychiatric Progress Note Patient seen today, length of contact: 30 minutes Patient Chief Complaint: "I am not doing so well, I am very depressed, that is why I am in bed..." Problems Identified/Issues Discussed: Treatment plan, risks/benefits/alternatives of the medications, suicide prevention. Medical Problems: Please see HPI Diagnostic Results: 07/30/18 06:19 07/30/18 06:19 Lab Results 07/31/18 07:30: Valproic Acid 42 L 07/31/18 07:30: Free T4 1.27, TSH 3rd Generation 1.04 07/31/18 07:30: Fasting Glucose 87, Triglycerides 142, Cholesterol 179, LDL Cholesterol Direct 115, HDL Cholesterol 42 07/30/18 06:41: Urine Color Yellow, Urine Appearance Clear, Urine pH 7.0, Ur Specific [place] 1.020, Urine Protein Trace H, Urine Glucose (UA) Negative, Urine Ketones Negative, Urine Blood Negative, Urine Nitrate Negative, Urine Bilirubin Negative, Urine Urobilinogen 1.0 H, Ur Leukocyte Esterase Small H, Urine RBC 0 - 2, Urine WBC Tntc H, Ur Epithelial Cells 0 - 2, Urine Bacteria Small 07/30/18 06:41: Urine Opiates Screen Negative, Urine Methadone Screen Negative, Ur Barbiturates Screen Negative, Ur Phencyclidine Scrn Negative, Ur Amphetamines Screen Negative, U Benzodiazepines Scrn Negative, U Oth Cocaine Metabols Negative, U Cannabinoids Screen Negative 07/30/18 06:19: Salicylates < 1 L, Acetaminophen < 10.0 L 07/30/18 06:19: Alcohol, Quantitative < 10 07/30/18 06:19: Sodium 139, Potassium 3.9, Chloride 105, Carbon Dioxide 25, Ani on Gap 13, BUN 10, Creatinine 0.5 L, Est GFR ( Amer) > 60, Est GFR (Non- Af Amer) > 60, Random Glucose 93, Calcium 8.6, Total Bilirubin 0.3, AST 20, ALT 16, Alkaline Phosphatase 64, Total Protein 7.1, Albumin 4.2, Globulin 2.9, Albumin/Globulin Ratio 1.4 07/30/18 06:19: WBC 8.2, RBC 4.67, Hgb 13.5 L, Hct 40.7 L, MCV 87.2, MCH 28.9, MCHC 33.2, RDW 14.3, Plt Count 271, MPV 9.9, Neut % (Auto) 52.9, Lymph % (Auto) 31.5, [place] % (Auto) 11.7 H, Eos % (Auto) 3.9, Baso % (Auto) 0.0, Lymph # (Auto) 2.6, [place] # (Auto) 1.0 H, Eos # (Auto) 0.3, Baso # (Auto) 0.00, Absolute Neuts (auto) 4.35 Vital Signs Temp Pulse Pulse Resp BP Pulse Ox 07/31/18 07:26 97.4 F L 58 L 20 109/67 07/30/18 15:52 106 H 126/82 07/30/18 09:53 77 17 07/30/18 07:13 97.8 F 78 18 117/78 100 07/30/18 05:59 97.8 F 74 18 121/72 98 DSM 5 Symptoms Update: Shortly pt is a 23 yo male with schizoaffective disorder depressive type, multiple psychiatric admissions in the past, most [facility] less than a month ago, reported being compliant with her medications, patient reported suicidal ideation with a plan to kill himself by jumping in front of the vehicle, patient requires further evaluation stabilization and medication adjustment. Patient was seen today in his room, patient presented to be depressed, withdrawn, laying down in the dark, covered his head with the blanket. Patient reported to feel very depressed, hopeless, helpless, patient denied any active suicidal ideation. Denied supportive symptoms are not was observed. As per nursing report patient is a cooperative, not participating in unit activities. So far patient tolerates medications well, no side effects observed or reported, aims 0, no EPS. DSM 5 Diagnosis: As per history schizoaffective disorder Learning disability Medication Change: Yes (Remeron increased) Medical Record Reviewed: Yes Consults ordered or reviewed: Patient was seen by medical team in the emergency room Mental Status Examination - Cognitive Function Orientation: Person, Place, Situation Memory: Intact Attention: Poor Concentration: Poor Association: Loose Fund of Knowledge: Poor - Mood Mood: Depressed, Anxious - Affect Affect: Flat - Formal Thought Process Formal Thought Process: No Impairment - Suicidal Ideation Suicidal Ideation: No - Homicidal Ideation Homicidal Ideation: No Goal/Treatment Plan - Goal/Treatment Plan Need for Continued Stay: Remain at risks for inpatient hospitalization, Severe depression anxiety, Discharge may exacerbated symptoms, Severe functional impairment Progress Toward Problem(s) and Goals/Treatment Plan: Milieu/structure/supportive therapy SW consultation for discharge plan and social issues Medical consult for possible urinary tract infection Med management Depakote 500 mg twice a day for mood stabilization Depakote level 42 07/31/18 Remeron 30 mg at the nighttime for depression and insomnia Risperdal 2 mg daily for stabilization possible psychosis As needed medications Family involvement Follow up on labs Will monitor closely Pt was educated about risk/benefits and alternatives of medications, coping strategies (safety plan, suicide prevention), relapse prevention, importance of follow up with psychiatrist and therapist, stay away from drugs/alcohol/smoking Estimated Date of D/C: 08/06/18
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
[2018-08-01] MEDS: Divalproex 500 mg DR(BID formulation) PO SCH ×2 (08:44→17:47)
--- NOTE | 2018-08-01 12:31 | PN ---
DATE: 08/01/2018 SUBJECTIVE: I saw him in the psychiatric floor. He is resting in bed. He is still having problems urinating. I did do UA and C and S. We were hoping the results to be back and not back yet. We will start him on nitrofurantoin 100 mg twice a day. He is also on Ativan, Depakote, Geodon, Remeron, and Tylenol. PHYSICAL EXAMINATION: VITAL SIGNS: 97.4 temperature, 73 pulse, 91/52 blood pressure, 18 respiratory rate, 97% O2 sat on room air. HEENT: Head is atraumatic and normocephalic. HEART: Regular rate. LUNGS: Decreased breath sounds with clear. ABDOMEN: Soft. EXTREMITIES: No edema. No CVA tenderness. Does have discomfort when he urinates. His urine did show small leukocytes, too numerous to count white blood cells and small bacteria. I will start him on antibiotics until the culture sensitivity returns. Continue with aggressive psychiatric care. I encouraged him to participate in psychiatric meetings and also take his medications and take drink lots of water. Hopefully, he will improve. Cristo Escudero DO MTDHilary
--- NOTE | 2018-08-01 15:49 | PCM.PYCHPN ---
Psychiatric Progress Note - Psychiatric Progress Note Patient seen today, length of contact: 30 minutes Patient Chief Complaint: "I am fine..." pt seems to be sarcastic... Problems Identified/Issues Discussed: Treatment plan, risks/benefits/alternatives of the medications, suicide prevention. Medical Problems: Please see HPI Diagnostic Results: 07/30/18 06:19 07/30/18 06:19 Lab Results 07/31/18 07:30: Valproic Acid 42 L 07/31/18 07:30: Free T4 1.27, TSH 3rd Generation 1.04 07/31/18 07:30: Fasting Glucose 87, Triglycerides 142, Cholesterol 179, LDL Cholesterol Direct 115, HDL Cholesterol 42 07/30/18 06:41: Urine Color Yellow, Urine Appearance Clear, Urine pH 7.0, Ur Specific [place] 1.020, Urine Protein Trace H, Urine Glucose (UA) Negative, Urine Ketones Negative, Urine Blood Negative, Urine Nitrate Negative, Urine Bilirubin Negative, Urine Urobilinogen 1.0 H, Ur Leukocyte Esterase Small H, Urine RBC 0 - 2, Urine WBC Tntc H, Ur Epithelial Cells 0 - 2, Urine Bacteria Small 07/30/18 06:41: Urine Opiates Screen Negative, Urine Methadone Screen Negative, Ur Barbiturates Screen Negative, Ur Phencyclidine Scrn Negative, Ur Amphetamines Screen Negative, U Benzodiazepines Scrn Negative, U Oth Cocaine Metabols Negative, U Cannabinoids Screen Negative 07/30/18 06:19: Salicylates < 1 L, Acetaminophen < 10.0 L 07/30/18 06:19: Alcohol, Quantitative < 10 07/30/18 06:19: Sodium 139, Potassium 3.9, Chloride 105, Carbon Dioxide 25, Anion Gap 13, BUN 10, Creatinine 0.5 L, Est GFR ( Amer) > 60, Est GFR (Non-Af Amer) > 60, Random Glucose 93, Calcium 8.6, Total Bilirubin 0.3, AST 20, ALT 16, Alkaline Phosphatase 64, Total Protein 7.1, Albumin 4.2, Globulin 2.9, Albumin/Globulin Ratio 1.4 07/30/18 06:19: WBC 8.2, RBC 4.67, Hgb 13.5 L, Hct 40.7 L, MCV 87.2, MCH 28.9, MCHC 33.2, RDW 14.3, Plt Count 271, MPV 9.9, Neut % (Auto) 52.9, Lymph % (Auto) 31.5, [place] % (Auto) 11.7 H, Eos % (Auto) 3.9, Baso % (Auto) 0.0, Lymph # (Auto) 2.6, [place] # (Auto) 1.0 H, Eos # (Auto) 0.3, Baso # (Auto) 0.00, Absolute Neuts (auto) 4.35 Vital Signs Temp Pulse Pulse Resp BP Pulse Ox 07/31/18 07:26 97.4 F L 58 L 20 109/67 07/30/18 15:52 106 H 126/82 07/30/18 09:53 77 17 07/30/18 07:13 97.8 F 78 18 117/78 100 07/30/18 05:59 97.8 F 74 18 121/72 98 DSM 5 Symptoms Update: Shortly pt is a 23 yo male with schizoaffective disorder depressive type, multiple psychiatric admissions in the past, most [facility] less than a month ago, reported being compliant with her medications, patient reported suicidal ideation with a plan to kill himself by jumping in front of the vehicle, patient requires further evaluation stabilization and medication adjustment. Patient was seen today in his room, patient presented to be depressed, withdrawn, laying down in the dark, covered his head with the blanket. pt reported being "fine, perfect", pt seems to be sarcastic. as per pt, he feels drowsy on increase dose of remeron. patient denied any active suicidal ideation. As per nursing report patient is a cooperative, not participating in unit activities, self isolating. So far patient tolerates medications well, no side effects observed or reported, aims 0, no EPS. DSM 5 Diagnosis: As per history schizoaffective disorder Learning disability Medication Change: No Medical Record Reviewed: Yes Consults ordered or reviewed: Patient was seen by medical team in the emergency room Mental Status Examination - Cognitive Function Orientation: Person, Place, Situation Memory: Intact Attention: Poor Concentration: Poor Association: Loose Fund of Knowledge: Poor - Mood Mood: Depressed, Anxious - Affect Affect: Flat - Formal Thought Process Formal Thought Process: No Impairment - Suicidal Ideation Suicidal Ideation: No - Homicidal Ideation Homicidal Ideation: No Goal/Treatment Plan - Goal/Treatment Plan Need for Continued Stay: Remain at risks for inpatient hospitalization, Severe depression anxiety, Discharge may exacerbated symptoms, Severe functional impairment Progress Toward Problem(s) and Goals/Treatment Plan: Milieu/structure/supportive therapy SW consultation for discharge plan and social issues Medical consult for possible urinary tract infection Med management Depakote 500 mg twice a day for mood stabilization Depakote level 42 07/31/18 Remeron 30 mg at the nighttime for depression and insomnia Risperdal 2 mg daily for stabilization possible psychosis As needed medications Family involvement Follow up on labs Will monitor closely Pt was educated about risk/benefits and alternatives of medications, coping strategies (safety plan, suicide prevention), relapse prevention, importance of follow up with psychiatrist and therapist, stay away from drugs/alcohol/smoking Estimated Date of D/C: 08/06/18
[2018-08-02 07:33] VITALS: RESP 20; TEMP 97.5
[2018-08-02] MEDS: Divalproex 500 mg DR(BID formulation) PO SCH ×2 (08:53→16:41)
--- NOTE | 2018-08-02 13:16 | PN ---
DATE: 08/02/2018 SUBJECTIVE: I saw him in the psychiatric floor. He is in bed, sleeping. He tells me he is starting to improve mentally. He slept well. He is in better spirits than when he came in to the facility. He is taking his medications. He is trying to participate. I am hoping he continues to improve. He had depression, UTIs and suicidal ideation. MEDICATIONS: He is on Ativan, Depakote, Geodon, Maalox, Macrobid, milk of magnesia, Remeron, Risperdal, and Tylenol. PHYSICAL EXAMINATION: VITAL SIGNS: Temperature 97.5, 71 pulse, 101/66 blood pressure, 20 respiratory rate. HEAD: Atraumatic, normocephalic. HEART: Regular rate. LUNGS: Clear to auscultation. ABDOMEN: Soft. EXTREMITIES: No edema. LABORATORY DATA: He had labs on the , which were pretty good. His thyroid test was good. Urine was too numerous to count white cells and small bacteria. ASSESSMENT AND PLAN: As per Psychiatry, continue to encourage him to participate in treatment. He is on antibiotics for urinary tract infection. Hopefully, he will continue to improve and there was no growth in the urine, that just popped up in micro. I will stop the nitrofurantoin. The patient is improving mentally. Cristo Escudero DO
--- NOTE | 2018-08-02 15:19 | PCM.PYCHPN ---
Psychiatric Progress Note - Psychiatric Progress Note Patient seen today, length of contact: 30 minutes Patient Chief Complaint: "I am feeling better..." Problems Identified/Issues Discussed: Treatment plan, risks/benefits/alternatives of the medications, suicide prev ention. Medical Problems: Please see HPI Diagnostic Results: 07/30/18 06:19 07/30/18 06:19 Lab Results 07/31/18 07:30: Valproic Acid 42 L 07/31/18 07:30: Free T4 1.27, TSH 3rd Generation 1.04 07/31/18 07:30: Fasting Glucose 87, Triglycerides 142, Cholesterol 179, LDL Cholesterol Direct 115, HDL Cholesterol 42 07/30/18 06:41: Urine Color Yellow, Urine Appearance Clear, Urine pH 7.0, Ur Specific [place] 1.020, Urine Protein Trace H, Urine Glucose (UA) Negative, Urine Ketones Negative, Urine Blood Negative, Urine Nitrate Negative, Urine Bilirubin Negative, Urine Urobilinogen 1.0 H, Ur Leukocyte Esterase Small H, Urine RBC 0 - 2, Urine WBC Tntc H, Ur Epithelial Cells 0 - 2, Urine Bacteria Small 07/30/18 06:41: Urine Opiates Screen Negative, Urine Methadone Screen Negative, Ur Barbiturates Screen Negative, Ur Phencyclidine Scrn Negative, Ur Amphetamines Screen Negative, U Benzodiazepines Scrn Negative, U Oth Cocaine Metabols Negative, U Cannabinoids Screen Negative 07/30/18 06:19: Salicylates < 1 L, Acetaminophen < 10.0 L 07/30/18 06:19: Alcohol, Quantitative < 10 07/30/18 06:19: Sodium 139, Potassium 3.9, Chloride 105, Carbon Dioxide 25, Anion Gap 13, BUN 10, Creatinine 0.5 L, Est GFR ( Amer) > 60, Est GFR (Non-Af Amer) > 60, Random Glucose 93, Calcium 8.6, Total Bilirubin 0.3, AST 20, ALT 16, Alkaline Phosphatase 64, Total Protein 7.1, Albumin 4.2, Globulin 2.9, Albumin/Globulin Ratio 1.4 07/30/18 06:19: WBC 8.2, RBC 4.67, Hgb 13.5 L, Hct 40.7 L, MCV 87.2, MCH 28.9, MCHC 33.2, RDW 14.3, Plt Count 271, MPV 9.9, Neut % (Auto) 52.9, Lymph % (Auto) 31.5, [place] % (Auto) 11.7 H, Eos % (Auto) 3.9, Baso % (Auto) 0.0, Lymph # (Auto) 2.6, [place] # (Auto) 1.0 H, Eos # (Auto) 0.3, Baso # (Auto) 0.00, Absolute Neuts (auto) 4.35 Vital Signs Temp Pulse Pulse Resp BP Pulse Ox 07/31/18 07:26 97.4 F L 58 L 20 109/67 07/30/18 15:52 106 H 126/82 07/30/18 09:53 77 17 07/30/18 07:13 97.8 F 78 18 117/78 100 07/30/18 05:59 97.8 F 74 18 121/72 98 DSM 5 Symptoms Update: Shortly pt is a 23 yo male with schizoaffective disorder depressive type, multiple psychiatric admissions in the past, most [facility] less than a month ago, reported being compliant with her medications, patient reported suicidal ideation with a plan to kill himself by jumping in front of the vehicle, patient requires further evaluation stabilization and medication adjustment. Patient was seen today next to the nursing station together with social science research assistant. Patient appears to be more alert, patient observed walking in the unit with steady gait, patient reported that he feels better and he attributes his improvement to medication adjustment. Patient reported that he was compliant with the medications "but my body got used to medications, I think it needed to be increased." patient denied any active suicidal ideation. As per nursing report patient is cooperative, more visible in the unit. So far patient tolerates medications well, no side effects observed or reported, aims 0, no EPS. DSM 5 Diagnosis: As per history schizoaffective disorder Learning disability Medication Change: No Medical Record Reviewed: Yes Mental Status Examination - Cognitive Function Orientation: Person, Place, Situation Memory: Intact Attention: Poor (Some improvement) Concentration: Poor (Some improvement) Association: Loose Fund of Knowledge: Poor - Mood Mood: Depressed, Anxious - Affect Affect: Constricted (But more reactive, more congruent) - Formal Thought Process Formal Thought Process: No Impairment - Suicidal Ideation Suicidal Ideation: No - Homicidal Ideation Homicidal Ideation: No Goal/Treatment Plan - Goal/Treatment Plan Need for Continued Stay: Remain at risks for inpatient hospitalization, Severe depression anxiety, Discharge may exacerbated symptoms, Severe functional impairment Progress Toward Problem(s) and Goals/Treatment Plan: Milieu/structure/supportive therapy SW consultation for discharge plan and social issues Medical consult for possible urinary tract infection Med management Depakote 500 mg twice a day for mood stabilization Depakote level 42 07/31/18 Remeron 30 mg at the nighttime for depression and insomnia Risperdal 2 mg daily for stabilization possible psychosis As needed medications Family involvement Follow up on labs Will monitor closely Pt was educated about risk/benefits and alternatives of medications, coping strategies (safety plan, suicide prevention), relapse prevention, importance of follow up with psychiatrist and therapist, stay away from drugs/alcohol/smoking Estimated Date of D/C: 08/03/18
[2018-08-02 16:05] VITALS: BP 105/61; PULSE 104
[2018-08-03] MEDS: Divalproex 500 mg DR(BID formulation) PO SCH (08:37)
--- NOTE | 2018-08-03 13:05 | PN ---
DATE: 08/03/2018 SUBJECTIVE: I saw him resting comfortably in bed in the psychiatric floor. He tells me he is being discharged today. He feels like he improved greatly. MEDICATIONS: He is on Ativan, Depakote, Geodon, Maalox, milk of magnesia, Remeron, Tylenol. PHYSICAL EXAMINATION: VITAL SIGNS: He has a 97.5 temperature, 71 pulse, 101/66 blood pressure, 20 respiratory rate. HEENT: Head is atraumatic, normocephalic. HEART: Regular rate. LUNGS: Decreased breath sounds, but clear. ABDOMEN: Soft. EXTREMITIES: No edema. LABORATORY DATA: He has a good labs on the 07/30/2018. Thyroid was good. Toxicology was good. Urine was small and he did well here. As per Psychiatry discharge if he improved mentally. I will continue to follow. Cristo Escudero DO MTDD
--- NOTE | 2018-08-03 15:44 | PCM.PYCHDC ---
Mental Status Examination - Mental Status Examination Orientation: Person, Place, Situation, Time Memory: Intact Mood: Neutral Affect: Broad (and mood congruent) Speech: Appropriate Attention: WNL Concentration: WNL Association: Loose (but seems to be at baseline) Fund of Knowledge: Poor (baseline) Formal Thought Process: No Impairment Description of patient's judgement and insight: improved insight into his mental illness. Psychotic Thoughts and Behaviors: Patient denied hearing voices, denied seeing things, ideation, patient does not present to be psychotic. Suicidal Ideation: No Current Homicidal Ideation?: No Plan: Patient adamantly denied thoughts of harming himself or others. Discharge Plan - Discharge Note Reason for Hospitalization: Patient was admitted for evaluation and stabilization of depressive symptoms possible suicidal ideation with a plan to jump in front of the car. Psychiatric History (includes Medical, Family, Personal Hx): See HPI Laboratory Data: 07/30/18 06:19 07/30/18 06:19 Lab Results 07/31/18 07:30: Valproic Acid 42 L 07/31/18 07:30: RPR Nonreactive 07/31/18 07:30: Free T4 1.27, TSH 3rd Generation 1.04 07/31/18 07:30: Fasting Glucose 87, Triglycerides 142, Cholesterol 179, LDL Cholesterol Direct 115, HDL Cholesterol 42 07/30/18 06:41: Urine Color Yellow, Urine Appearance Clear, Urine pH 7.0, Ur Specific [place] 1.020, Urine Protein Trace H, Urine Glucose (UA) Negative, Urine Ketones Negative, Urine Blood Negative, Urine Nitrate Negative, Urine Bilirubin Negative, Urine Urobilinogen 1.0 H, Ur Leukocyte Esterase Small H, Urine RBC 0 - 2, Urine WBC Tntc H, Ur Epithelial Cells 0 - 2, Urine Bacteria Small 07/30/18 06:41: Urine Opiates Screen Negative, Urine Methadone Screen Negative, Ur Barbiturates Screen Negative, Ur Phencyclidine Scrn Negative, Ur Amphetamines Screen Negative, U Benzodiazepines Scrn Negative, U Oth Cocaine Metabols Negative, U Cannabinoids Screen Negative 07/30/18 06:19: Salicylates < 1 L, Acetaminophen < 10.0 L 07/30/18 06:19: Alcohol, Quantitative < 10 07/30/18 06:19: Sodium 139, Potassium 3.9, Chloride 105, Carbon Dioxide 25, Anion Gap 13, BUN 10, Creatinine 0.5 L, Est GFR ( Amer) > 60, Est GFR (Non-Af Amer) > 60, Random Glucose 93, Calcium 8.6, Total Bilirubin 0.3, AST 20, ALT 16, Alkaline Phosphatase 64, Total Protein 7.1, Albumin 4.2, Globulin 2.9, Albumin/Globulin Ratio 1.4 07/30/18 06:19: WBC 8.2, RBC 4.67, Hgb 13.5 L, Hct 40.7 L, MCV 87.2, MCH 28.9, MCHC 33.2, RDW 14.3, Plt Count 271, MPV 9.9, Neut % (Auto) 52.9, Lymph % (Auto) 31.5, [place] % (Auto) 11.7 H, Eos % (Auto) 3.9, Baso % (Auto) 0.0, Lymph # (Auto) 2.6, [place] # (Auto) 1.0 H, Eos # (Auto) 0.3, Baso # (Auto) 0.00, Absolute Neuts (auto) 4.35 Vital Signs Temp Pulse Pulse Resp BP Pulse Ox 08/02/18 16:04 104 H 105/61 08/02/18 07:32 97.5 F L 71 20 101/66 08/01/18 15:00 90 18 118/78 08/01/18 07:13 97.4 F L 73 18 91/53 L 07/31/18 16:07 88 112/75 07/31/18 07:26 97.4 F L 58 L 20 109/67 07/30/18 15:52 106 H 126/82 07/30/18 09:53 77 17 07/30/18 07:13 97.8 F 78 18 117/78 100 07/30/18 05:59 97.8 F 74 18 121/72 98 Consultations:: List each consultation separately and include: 1. Reason for request. 2. Findings. 3. Follow-up Consultations: Patient was seen by medical team in the emergency room Summary of Hospital Course include:: 1. Description of specific treatment plan utilized for patients during their course of treatmen. 2. Summarize the time- course for resolution of acute symptoms and/or regressed behaviors. 3. Describe issues identified and worked on during hospitalization. 4. Describe medication utilized. 5. Describe medical problems identified and treated. 6. Reassessment of suicide risk Summary of Hospital Course: Shortly pt is a 23 yo male with schizoaffective disorder depressive type, multiple psychiatric admissions in the past, most [facility] less than a month ago, reported being compliant with her medications, patient reported suicidal ideation with a plan to kill himself by jumping in front of the vehic le, patient requires further evaluation stabilization and medication adjustment. Patient is well-known to this curriculum writer from multiple admissions to the psychiatric inpatient unit including this facility. At the time of admission pt reported to feel depressed, hopeless, helpless, worthless, guilty, patient reported for the past day he was stressing suicidal ideation with a plan to jump in front of the car, patient denied any triggers, denies using drugs, denied any conflicts with his friend and he is renting a room. Patient denied hearing voices, denied seeing things, denied paranoid ideations, but patient presented to be probably related, guarded, answering yes or no answers only. Please see admission note for more detailed information. Patient was stabilized on the following medications: Depakote 500 mg twice a day for mood stabilization Remeron 30 mg at the nighttime for insomnia and depression Risperdal 2 mg daily for mood stabilization and psychotic symptoms Patient tolerated medications well, no side effects observed or reported, aims 0, no EPS. Overall patient improved, became more visible in the unit, started to attend groups, no agitation, no aggression, patient had good appetite and sleep. Patient reached maximum effect from this hospitalization, deemed not to be in any imminent danger to self or others, will be followed up at outpatient clinic, please see SW note for more detailed information. At the time of the discharge patient was considered to pose no imminent danger to self or others, will be following up at outpatient mental health clinic, information about follow up appointment, time and address provided to the pt, (see SW note for more detailed information). It is a patient responsibility to follow up with outpatient clinic, PMD as well as specialists In case patient will need to obtain results of studies pending at discharge, patient was provided with contact information of Psychiatric Inpatient unit [phone] as well as Medical Record Department [phone], as well as [facility] team [phone]. Patient denies smoking, denies drinking, denied using drugs. pt was provided with prescriptions see medication reconciliation form Pt was educated about safety plan in case of worsening of symptoms or in case of suicidal or homicidal ideation call 911 or go to the nearest ER, also was educated to take meds as prescribed and stay away from drugs, pt verbalized understanding. 07/30/18 06:19 07/30/18 06:19 Lab Results 07/30/18 06:41: Urine Color Yellow, Urine Appearance Clear, Urine pH 7.0, Ur Specific [place] 1.020, Urine Protein Trace H, Urine Glucose (UA) Negative, Urine Ketones Negative, Urine Blood Negative, Urine Nitrate Negative, Urine Bilirubin Negative, Urine Urobilinogen 1.0 H, Ur Leukocyte Esterase Small H, Urine RBC 0 - 2, Urine WBC Tntc H, Ur Epithelial Cells 0 - 2, Urine Bacteria Small 07/30/18 06:41: Urine Opiates Screen Negative, Urine Methadone Screen Negative, Ur Barbiturates Screen Negative, Ur Phencyclidine Scrn Negative, Ur Amphetamines Screen Negative, U Benzodiazepines Scrn Negative, U Oth Cocaine Metabols Negative, U Cannabinoids Screen Negative 07/30/18 06:19: Salicylates < 1 L, Acetaminophen < 10.0 L 07/30/18 06:19: Alcohol, Quantitative < 10 07/30/18 06:19: Sodium 139, Potassium 3.9, Chloride 105, Carbon Dioxide 25, Anion Gap 13, BUN 10, Creatinine 0.5 L, Est GFR ( Amer) > 60, Est GFR (Non-Af Amer) > 60, Random Glucose 93, Calcium 8.6, Total Bilirubin 0.3, AST 20, ALT 16, Alkaline Phosphatase 64, Total Protein 7.1, Albumin 4.2, Globulin 2.9, Albumin/Globulin Ratio 1.4 07/30/18 06:19: WBC 8.2, RBC 4.67, Hgb 13.5 L, Hct 40.7 L, MCV 87.2, MCH 28.9, MCHC 33.2, RDW 14.3, Plt Count 271, MPV 9.9, Neut % (Auto) 52.9, Lymph % (Auto) 31.5, [place] % (Auto) 11.7 H, Eos % (Auto) 3.9, Baso % (Auto) 0.0, Lymph # (Auto) 2.6, [place] # (Auto) 1.0 H, Eos # (Auto) 0.3, Baso # (Auto) 0.00, Absolute Neuts (auto) 4.35 Vital Signs Temp Pulse Pulse Resp BP Pulse Ox 07/30/18 15:52 106 H 126/82 07/30/18 09:53 77 17 07/30/18 07:13 97.8 F 78 18 117/78 100 07/30/18 05:59 97.8 F 74 18 121/72 98 - Diagnosis (1) Schizoaffective disorder, depressive type Status: Acute Priority: High - Final Diagnosis (DSM 5) Condition upon Discharge: FAIR Disposition: HOME/ ROUTINE Follow-up Treatment Plan: At the time of the discharge patient was considered to pose no imminent danger to self or others, will be following up at outpatient mental health clinic, information about follow up appointment, time and address provided to the pt, (see SW note for more detailed information). It is a patient responsibility to follow up with outpatient clinic, PMD as well as specialists In case patient will need to obtain results of studies pending at discharge, patient was provided with contact information of Psychiatric Inpatient unit [phone] as well as Medical Record Department [phone], as well as [facility] team [phone]. Patient denies smoking, denies drinking, denied using drugs. pt was provided with prescriptions see medication reconciliation form Pt was educated about safety plan in case of worsening of symptoms or in case of suicidal or homicidal ideation call 911 or go to the nearest ER, also was educated to take meds as prescribed and stay away from drugs, pt verbalized understanding. Prescriptions/Medication Reconciliation: Divalproex [Depakote DR(*BID*)] 500 mg PO BID #30 tcp Mirtazapine [Remeron] 30 mg PO HS #14 tab risperiDONE [RisperDAL Tab] 2 mg PO DAILY #14 tab - Tobacco Cessation Tobacco Use Status for the last 30 days: Non User Tobacco Use Treatment Practical Counseling Provided: No Reason for not providing: non smoker Tobacco Use Treatment FDA-Approved Cessation Medication Provided: No Smoking Cessation Prescription was given: No If no, reason for not providing: denied smoking - Alcohol or Substance Abuse Does the patient have an Alcohol or Substance Abuse Disorder: No A prescription for an FDA-approved medication for alcohol and drug dependence was given to the patient at discharge: No If no,reason for not providing: denied using alcohol - Antipsychotic Medications Pt discharged on 2 or more routine antipsychotic medications: No
== END 2018-08-03 15:28 | disposition home or self-care (01) | DRG 430 ==
LOC: ED 05:42 → ERH 08:13 → PSYC 09:08
PROVIDERS: ADMIT Psychiatry & Neurology Psychiatry; ATTEND Psychiatry & Neurology Psychiatry
DX: F25.1 Schizoaffective disorder, depressive type (principal); N39.0 Urinary tract infection, site not specified; R45.851 Suicidal ideations; F17.210 Nicotine dependence, cigarettes, uncomplicated; F81.9 Developmental disorder of scholastic skills, unspecified; G47.00 Insomnia, unspecified